=== PATIENT | female | born 1955 | race Caucasian/White ===

== ENCOUNTER → 2019-10-31 12:08 | Outpatient (CLI) | payer MEDICARE, SELFPAY ==
--- NOTE | 2019-10-31 12:13 | BI_ITS ---
MAMMOGRAPHY - BILATERAL SCREENING REASON FOR EXAM: Female, 64 years old. Routine annual screening examination. PERTINENT HISTORY: Mother with breast cancer. TECHNIQUE: Digital bilateral breast beka (3D mammographic acquisition) in the CC and MLO projections. 2-D mediolateral oblique (MLO) and craniocaudad (CC) views of both breasts were obtained. CAD: Full Field Digital Mammography with Computer Added Detection was performed. COMPARISON: Comparison is made with prior examination dated December 11, 2016 and July 25, 2015. FINDINGS: Breast Composition: There are scattered areas of fibroglandular density. There are no dominant masses or suspicious calcifications. No other significant abnormalities are identified. There has been no significant change since the prior study. BI/SCREEN MAMM (CAD) W/BEKA BILAT IMPRESSION: Stable bilateral screening mammogram. Yearly follow-up mammogram recommended. (A) ASSESSMENT CATEGORY: BIRADS Category 2: Benign. A letter regarding these results will be sent to the patient by the facility within 30 days. Approximately 10% of breast cancers are not detected by mammography. A normal mammogram should not delay biopsy of a clinically suspicious abnormality. [id number] Electronically Signed: Jun Witt, at 13:12 EST , Service support ,
== END ==
PROVIDERS: PCP Family Medicine; Referring Provider Family Medicine; Visit Provider Family Medicine
DX: Z12.31 Encounter for screening mammogram for malignant neoplasm of breast (principal)
CPT/HCPCS: 77063; 77067

== ENCOUNTER → 2020-12-05 09:08 | Outpatient (CLI) | payer MEDICARE, SELFPAY ==
[2020-12-05 10:45] LABS: ALB/GLOB Ratio 1.1 RATIO (0.9-2.4); AST(SGOT) 21 U/L (15-37); Alanine Aminotransfer ALT/SGPT 24 U/L (13-56); Alkaline Phosphatase 77 U/L (45-117); Anion Gap 5 (5-15); BUN 22 mg/dL (7-18); BUN/Creat Ratio 26.1 RATIO (10-20); Calcium,Total 8.9 mg/dL (8.5-10.1); Chloride 105 mmol/L (98-107); Cholesterol 204 mg/dL (200); Creatinine, Serum 0.84 mg/dL (0.55-1.02); EST Glomerular Filtration Rate 72 mL/min (>60); Est Glom Filt Rate - Afr Amer 87 mL/min (>60); Globulin 3.8 g/dL (2.2-4.2); Glucose 100 mg/dL (74-106); High Density Lipoprotein 54 mg/dL; Potassium 4.2 mmol/L (3.5-5.1); Protein, Total 7.8 g/dL (6.4-8.2); Sodium Level 137 mmol/L (136-145); Triglycerides 81 mg/dL; Very Low Density Lipoprotein 16 mg/dL (5-40)
== END ==
PROVIDERS: PCP Family Medicine; Referring Provider Family Medicine; Visit Provider Family Medicine
DX: Z13.220 Encounter for screening for lipoid disorders (principal); Z13.1 Encounter for screening for diabetes mellitus
CPT/HCPCS: 36415; 80053; 80061

== ENCOUNTER 2020-12-17 08:12 | Day surgery (SDC) | payer MEDICARE, SELFPAY ==
[2020-12-17 08:35] VITALS: BP 182/86; PULSE 61; RESP 16; TEMP 36.8; O2SAT 97; BMI 29.5
[2020-12-17] MEDS: Lactated Ringers 1,000 ML 100 ML IV (08:41)
--- NOTE | 2020-12-17 09:19 | HP.PCM_ITS ---
History of Present Illness Date of Admission: 12/17/20 The patient is a 65 year old F here for screening colonoscopy. The patient reports no history of colonoscopy in the past. The patient reports no family history of colon cancer or polyps. The patient has no blood in her stool or abdominal pain. Past Medical/Surgical History - Planned Operation Planned Operative Procedure/s: cscope open access Date of Operative Procedure: 12/17/20 Permit Signed: No S.O.S: No Is This Patient Having a Total Joint: No - Previous Hospitalizations/Surgeries HX Hospitalizations: Yes - pneumonia 11 yrs ago HX of Surgeries: eye surgery as child. tubal ligation 30 yrs ago Any Problems With Anesthesia: Yes - seizure with tubal ligation You/Your Family Experience Fever (Hyperthermia) With Anes: No Cholinesterase deficiency: No - Cardiovascular Hx Chest Pain within Last 2 months: No Hx of Irregular Heartbeat and/or Afib: No Hx Heart Attack: No Hx Congestive Heart Failure: No Hx Rheumatic Fever: No Hx Hypertension: No Hx Internal Defibrillator: No Hx Pacemaker: No Hx Cardiac Catheterization: No Hx Cardiac Surgery/Stents/Etc.: No Hx Stress Test: No HX Edema: No Hx Pain in Legs when Walking/Leg Cramps: No - Respiratory Chronic Cough: No HX of Shortness of Breath: Yes - slightly sob with 2 flights of stairs Hoarseness: No Hx Chronic Obstructive Pulmonary Disease (COPD): No Hx Asthma: No Hx Emphysema: No Hx Sleep Apnea: No Hx Oxygen Use at Home: No Hx Respiratory Tract Infection/Cold (presently): No Do You Snore Loudly (louder than talking or can be heard): Yes Do You Often Feel Tired/ Fatigued/ Sleepy Dring Daytime?: Yes Has Anyone Observed You Stop Breathing During Sleep?: No Result (for STOP score): Positive Hx Smoking: No Smoking Status: Never smoker - Gastrointestinal Hx Gastroesophageal Reflux: Yes - tums otc prn Controlled With Meds: No Hx Gastrointestinal Disorders: Yes - ibs Hx Gastrointestinal Bleed: No Hx Ulcer: No Hx Hiatal Hernia: No Difficulty Chewing/Swallowing: No Recent Onset of Swallowing Problems: No Special diet followed at home: No Hx Unplanned Weight Loss of 20#: No HX Unplanned Weight Gain of 20#: No - Neurological Hx Seizures: Yes - 30 yrs ago with anesthesia HX Syncope/Blackout Spells/Unconsciousness: No Hx CVA/Stroke: No Hx Transient Ischemic Attacks (TIA): No Hx Multiple Sclerosis: No Hx Parkinson's Disease: No Hx Head/Neck Injury: Yes - occ pinched nerve in neck Hx Headaches: No Hx Back Injury/Pain: No Recent Onset of Speech Difficulty: No Restless Legs: No Does patient have nerve stimulator: No Patient instructed to have device shut off: No Rep notified?: No - Blood Disorder Hx Leukemia: No Bleeding Tendencies: No Hx Deep Vein Thrombosis: No Hx High Cholesterol: No Blood Transmitted Disease: No Hx Hepatitis: No Hx Cirrhosis: No Hx Anemia: No Hx Blood Disorders: No - Reproduction : No Is Patient Lactating: No Hx Hysterectomy: No Hx Tubal Ligation: Yes Are You Post Menopause: Yes - Genitourinary Hx Renal Disease: No - Musculoskeletal Hx Arthritis: No Hx Rheumatoid Arthritis: No Hx Gout: No Recent Onset of an Orthopedic Problem: No - Endocrine Hx Diabetes: No Thyroid Disease: No Hx Steroid Therapy: No - Psycho/Social Hx Substance Use: No Hx Alcohol Use: Yes - social Hx Anxiety: Yes - no meds Hx Depression: No Mental Illness: No Hx Dementia: No - Miscellaneous Hx Cancer: No Recent Exposure to Contagious Disease: No Active MRSA: No Hx of C-Diff: No Any Loose Teeth: No Allergies No Known Allergies Allergy (Verified 12/12/20 11:14) - Discharge Is Pt Admitted From a Shelter, or a Fci: No After D/C, Where Do you Plan to Go: Return Home - From the PAT History Number of Risk Factors: 2 - Physical Exam Vitals/I&O's: Vital Signs Temp Pulse Resp BP Pulse Ox 98.3 F 61 16 182/86 H 97 12/17/20 08:35 12/17/20 08:35 12/17/20 08:35 12/17/20 08:35 12/17/20 08:35 Oxygen Delivery Method Room Air Weight: 156 lb 8.451 oz Body Mass Index (BMI) 29.5 General: Alert, Oriented x3 Lungs: Normal air movement Cardiovascular: Regular rate, Regular Rhythm Abdomen: Soft, Non Tender, Non-Distended Microbiology Past 72 Hours 12/16/20 10:20 Interface Orders SARS-CoV-2 Antigen (Rapid) - Final Current Medications Lactated Ringer's () 1,000 mls @ 100 mls/hr IV .Q10H NEO Last Admin: 12/17/20 08:41 Dose: 100 mls/hr Documented by: Assessment/Plan 65-year-old female here for screening colonoscopy I explained endoscopy in detail to the patient. I explained the risks including but not limited to stroke or heart attack with anesthesia, perforation of the GI tract, bleeding, infection. I explained that any of these could necessitate further emergency surgery. The patient understands and all questions were answered sufficiently. The patient wishes to proceed with procedure. Frank Barber MD Pager: [facility] [address] [place] [address], [address] [place] [address] Office: Surgery Risks - Colonoscopy Risks Include but are not Limited To: Risks include but are not limited to: Bleeding, perforation requiring further surgery, inability to complete colonoscopy requiring barium enema.
--- NOTE | 2020-12-17 09:46 | OP.COLON_ITS ---
Patient Name: Kera Traylor Procedure Date: 12/17/2020 9:23 AM Date of : 1955 Age: 65 Procedure: Colonoscopy Indications: Screening for colorectal malignant neoplasm Providers: Frank Barber MD Referring MD: Jr Martinez Md Medicines: Monitored Anesthesia Care Patient Profile: This is a 65 year old female. Refer to note in patient chart for documentation of history and physical. Last Colonoscopy: none. The patient's first colonoscopy is today. Complications: No immediate complications. Procedure: Pre-Anesthesia Assessment: - Prior to the procedure, a History and Physical was performed, and patient medications and allergies were reviewed. The patient's tolerance of previous anesthesia was also reviewed. The risks and benefits of the procedure and the sedation options and risks were discussed with the patient. All questions were answered, and informed consent was obtained. Prior Anticoagulants: The patient has taken no previous anticoagulant or antiplatelet agents. After reviewing the risks and benefits, the patient was deemed in satisfactory condition to undergo the procedure. After I obtained informed consent, the scope was passed under direct vision. Throughout the procedure, the patient's blood pressure, pulse, and oxygen saturations were monitored continuously. The colonoscope was introduced through the anus and advanced to the cecum, identified by appendiceal orifice and ileocecal valve. The colonoscopy was performed without difficulty. The patient tolerated the procedure well. The quality of the bowel preparation was good. Scope In: 9:31:12 AM Scope Withdrawal Time 0 hours 6 minutes 12 seconds Scope Out: 9:44:08 AM Total Procedure Duration Time 0 hours 12 minutes 56 seconds Findings: The entire examined colon appeared normal on direct and retroflexion views. Impression: - The entire examined colon is normal on direct and retroflexion views. - No specimens collected. Recommendation: - Discharge patient to home. - Resume previous diet. - Continue present medications. - Repeat colonoscopy in 10 years for screening purposes. Procedure Code(s): --- Professional --- 57548, Colonoscopy, flexible; diagnostic, including collection of specimen(s) by brushing or washing, when performed (separate procedure) Diagnosis Code(s): --- Professional --- Z12.11, Encounter for screening for malignant neoplasm of colon CPT copyright 2017 [employer]. All rights reserved. The codes documented in this report are preliminary and upon machine packaging technician review may be revised to meet current compliance requirements. Frank Barber MD 12/17/2020 9:46:13 AM This report has been signed electronically. Number of Addenda: 0 Note Initiated On: 12/17/2020 9:23 AM
--- NOTE | 2020-12-17 09:46 | OP.CCLET_ITS ---
12/17/2020 Jr Martinez Md Re : Colonoscopy procedure for Kera Traylor Dear Michelle This procedure was performed on Thursday, December 17, 2020. My impressions and recommendations are as follows: Impressions : - The entire examined colon is normal on direct and retroflexion views. - No specimens collected. Recommendations : - Discharge patient to home. - Resume previous diet. - Continue present medications. - Repeat colonoscopy in 10 years for screening purposes. My findings are described in the full procedure note, which is enclosed. If I can be of further assistance, please feel free to contact me at Doctor phone number(s): , Work: . Sincerely, Frank Barber MD 12/17/2020 9:46:13 AM This report has been signed electronically.
[2020-12-17 09:47] VITALS: BP 126/56; BP 182/86; PULSE 79; RESP 16; TEMP 36.3; O2SAT 99
[2020-12-17 09:50] VITALS: BP 113/63; BP 182/86; PULSE 74; RESP 16; O2SAT 99
[2020-12-17 09:55] VITALS: BP 122/74; BP 182/86; PULSE 64; RESP 16; O2SAT 99
[2020-12-17 10:00] VITALS: BP 154/78; BP 160/99; BP 182/86; PULSE 68; PULSE 70; RESP 16; TEMP 36.4; O2SAT 100; O2SAT 98
[2020-12-17 10:34] VITALS: BP 182/86
== END 2020-12-17 10:35 | disposition home or self-care (01) ==
LOC: EN 08:12 → AC 08:12
PROVIDERS: PCP Family Medicine; Referring Provider Family Medicine; Visit Provider Surgery
PROC: 0DJD8ZZ Inspection of Lower Intestinal Tract, Via Natural or Artificial Opening Endoscopic (ICD-10-PCS; CPT 45378; principal; 2020-12-17 09:25)
DX: Z12.11 Encounter for screening for malignant neoplasm of colon (principal); Z20.828 Contact with and (suspected) exposure to other viral communicable diseases; K21.9 Gastro-esophageal reflux disease without esophagitis
CPT/HCPCS: G0121; 87426; C9803; J7120; J2405

== ENCOUNTER → 2021-04-22 17:55 | Outpatient (CLI) | payer MEDICARE, SELFPAY | PROVIDERS: PCP Family Medicine; Visit Provider Family Medicine | DX: Z20.822 Contact with and (suspected) exposure to COVID-19 (principal) | CPT/HCPCS: 87635; U0005; U0003 ==

== ENCOUNTER → 2022-01-28 | Outpatient (CLI) | payer MEDICARE, SELFPAY ==
[2022-01-28 10:11] LABS: Absolute Lymphocyte Count 1.25 X10^3/uL (0.83-4.51); Absolute Neutrophil Count 3.8 X10^3/uL (2.0-7.7); Basophil# 0.07 X10^3/uL; Basophil% 1.2 % (0-1); Eosinophils% 3.4 % (0-5); Hemoglobin 11.6 g/dL (12.0-15.0); Lymphocyte # 1.25 X10^3/ul (0.83-4.51); Lymphocyte % 21.3 % (19-41); Mean Corp Hgb Conc 32.2 g/dL (32-36); Mean Corpuscular Hgb 28.3 pg (27.0-32.0); Mean Corpuscular Volume 87.8 fL (81-99); Mean Platelet Vol. 10.9 fl (6.2-12.0); Monocyte# 0.55 X10^3/uL; Monocyte% 9.4 % (0-10); NRBC Flagged by Analyzer 0 % (0-5); Neutrophil # 3.77 X10^3/uL (2.7-7.7); Neutrophil % 64.4 % (47-70); Platelet Count 347 K/mm3 (150-450); RBC Distribution Width CV 13.2 % (11.6-14.6); RBC Distribution Width SD 42.4 fl (35.1-43.9); White Blood Count 5.9 K/mm3 (4.4-11.0)
[2022-01-28 10:39] LABS: ALB/GLOB Ratio 0.9 RATIO (0.9-2.4); AST(SGOT) 14 U/L (15-37); Alanine Aminotransfer ALT/SGPT 21 U/L (13-56); Albumin, Serum 3.6 g/dL (3.2-5.0); Alkaline Phosphatase 65 U/L (45-117); Anion Gap 5 (5-15); BUN 20 mg/dL (7-18); BUN/Creat Ratio 23.6 RATIO (10-20); Calcium,Total 8.7 mg/dL (8.5-10.1); Chloride 105 mmol/L (98-107); Cholesterol 220 mg/dL (200); Creatinine, Serum 0.85 mg/dL (0.55-1.02); EST Glomerular Filtration Rate 71 mL/min (>60); Est Glom Filt Rate - Afr Amer 86 mL/min (>60); Globulin 3.8 g/dL (2.2-4.2); Glucose 102 mg/dL (74-106); High Density Lipoprotein 51 mg/dL; Protein, Total 7.4 g/dL (6.4-8.2); Sodium Level 137 mmol/L (136-145); T4 Free Direct 0.73 ng/dL (0.76-1.46); Triglycerides 132 mg/dL; Very Low Density Lipoprotein 26 mg/dL (5-40)
[2022-01-29 11:01] LABS: Hemoglobin A1c 5.5 % (3.8-5.6)
[2022-01-30 11:12] LABS: Anti-Thyroglobulin AB < 1.0 IU/mL (0.0-0.9); Thyroglobulin, Serum Qt. 30.5 ng/mL (1.5-38.5); Thyroid Peroxidase AB 252 IU/mL (0-34)
== END | disposition home or self-care (01) ==
LOC: MFPLAB 08:16
PROVIDERS: PCP Family Medicine; Referring Provider Family Medicine; Visit Provider Family Medicine
DX: Z00.00 Encounter for general adult medical examination without abnormal findings (principal); E04.1 Nontoxic single thyroid nodule
CPT/HCPCS: 36415; 80053; 80061; 84432; 84439; 84443; 85025; 86376; 86800

== ENCOUNTER → 2022-01-28 | Outpatient (CLI) | payer MEDICARE, SELFPAY ==
--- NOTE | 2022-01-28 12:57 | US_ITS ---
STUDY: THYROID ULTRASOUND REASON FOR EXAM: Female, 66 years old. THYROID NODULE TECHNIQUE: Ultrasound evaluation of the thyroid was performed with real-time and static euceda-scale imaging. COMPARISON: None. FINDINGS: RIGHT LOBE: The right lobe of the thyroid gland measures 4.3 cm x 1.8 cm x 2.1 cm. There is a heterogeneous echotexture. Multiple hypoechoic and cystic nodules are seen in the right lobe of the thyroid. The largest nodule measures 1.2 cm x 0.9 cm. LEFT LOBE: The left lobe of the thyroid gland measures 3.4 cm x 1.1 cm x 1.5 cm. There is a heterogeneous echotexture. Multiple solid nodules are seen throughout the left lobe. The largest nodule is in the lower pole and measures 0.9 cm x 1 centimeter. ISTHMUS: The isthmus measures 3.4 mm. The regional lymph nodes are normal. US/Thyroid IMPRESSION: Heterogeneous appearance of both lobes of the thyroid gland with multiple small nodules as described. Correlation with nuclear medicine uptake and thyroid scan recommended. Electronically Signed: Jun Witt MD at 14:54 EDT ,
== END | disposition home or self-care (01) ==
LOC: US 12:55
PROVIDERS: PCP Family Medicine; Visit Provider Family Medicine
DX: E04.1 Nontoxic single thyroid nodule (principal)
CPT/HCPCS: 36415; 76536; 80053; 80061; 83036; 84432; 84439; 84443; 85025; 86376; 86800

== ENCOUNTER → 2022-02-03 | Outpatient (CLI) | payer MEDICARE, SELFPAY ==
--- NOTE | 2022-02-03 10:27 | BI_ITS ---
MAMMOGRAPHY - BILATERAL SCREENING REASON FOR EXAM: Female, 66 years old. Routine annual screening examination. PERTINENT HISTORY: Mother with breast cancer. TECHNIQUE: Digital bilateral breast beka (3D mammographic acquisition) in the CC and MLO projections. 2-D mediolateral oblique (MLO) and craniocaudad (CC) views of both breasts were obtained. CAD: Full Field Digital Mammography with Computer Added Detection was performed. COMPARISON: Mammogram from 10/31/2019, 12/11/2016, 07/25/2015, 07/12/2014. FINDINGS: Breast Composition: There are scattered areas of fibroglandular density. There are no dominant masses or suspicious calcifications. No other significant abnormalities are identified. There has been no significant change since the prior study. BI/SCRN MAMM (CAD)W/BEKA BILAT IMPRESSION: Stable bilateral screening mammogram. Yearly follow-up mammogram recommended. (A) ASSESSMENT CATEGORY: BIRADS Category 1: Negative. A letter regarding these results will be sent to the patient by the facility within 30 days. Approximately 10% of breast cancers are not detected by mammography. A normal mammogram should not delay biopsy of a clinically suspicious abnormality. [id number] Electronically Signed: Ta Poe, at 12:06 EDT ,
--- NOTE | 2022-02-03 10:45 | BD_ITS ---
STUDY: DUAL ENERGY X-RAY ABSORPTIOMETRY / DXA REASON FOR EXAM: Female, 66 years old. Z780. The patient is postmenopausal. TECHNIQUE: Bone Mineral Density (BMD) measurements of lumbar spine and bilateral hips were obtained. COMPARISON: Comparison is made with prior study dated 07/25/2015. FINDINGS: Lumbar Spine (L1-L4): g/cm2 (0.963) / T-score (-0.8) / Z-score (1.2) Findings are suggestive of normal bone density with a low fracture risk. Left Femur Total: g/cm2 (0.867) / T-score (-0.6) / Z-score (0.7) Left Femoral Neck: g/cm2 (0.705) / T-score (-1.3) / Z-score (0.4) Right Femur Total: g/cm2 (0.914) / T-score (-0.2) / Z-score (1.1) Right Femoral Neck: g/cm2 (0.663) / T-score (-1.7) / Z-score (0.0) The T-Scores on the most recent prior examination were: Lumbar Spine (L1-L4): There has been worsening of bone density since the previous examination. Left Femur Total: which represents a worsening of 0.5%. Right Femur Total: which represents a worsening of 9.7%. BD/Dexa Bone Density Study IMPRESSION: The patient is considered osteopenic as outlined below according to World Steve Organization (WHO) criteria with a moderate fracture risk. There has been worsening of bone density since the previous examination. Reference Information: The T-score is the number of standard deviations above or below the standard which is normal for young adults at their peak bone mineral density. The World Health Organization (WHO) interprets the T-scores as follows: Above -1 Normal bone density Between -1 and -2.5 Osteopenia Equal to / or below -2.5 Osteoporosis As a practical clinical guideline, osteopenia may be graded as follows: Mild -1 through -1.5 Moderate -1.6 through -2.0 Severe -2.1 through -2.4 The Z-score is the number of standard deviations above or below age-matched controls. A Z-score of less than -1.5 would be considered abnormal. References: 1. NIH Osteoporosis and Related Bone Diseases www osteo.org 2. International Society for Clinical Densitometry www iscd.org 3. National Osteoporosis Foundation www nof.org Electronically Signed: Jun Witt MD at 8:57 EDT ,
== END | disposition home or self-care (01) ==
LOC: OPBD 10:25
PROVIDERS: PCP Family Medicine; Visit Provider Family Medicine
DX: Z12.31 Encounter for screening mammogram for malignant neoplasm of breast (principal); Z80.3 Family history of malignant neoplasm of breast; Z78.0 Asymptomatic menopausal state
CPT/HCPCS: 77063; 77067; 77080

== ENCOUNTER → 2022-02-11 | Outpatient (CLI) | payer MEDICARE, SELFPAY ==
--- NOTE | 2022-02-11 | FLU_PTH ---
PATIENT: KENDRA PINEDA [id number] AGE/SX: 66/F ROOM: RE02/11/[address]: Dr. Gregor Austin MD : 1955 BED: DIS: 02/11/2022 SPEC #: [id number] RECD: 02/11/22 11:55 STATUS: SUJEY REQ #: [id number] REINA: 02/11/22 00:[address]: Gregor Austin DEPT: CYTOLOGY RECD BY: Shira Lopez ENTERED: 02/11/22 14:02 SP TYPE: Fluid OTHR DR: Dr. Jr Reyes MD Tissues: A - Thyroid gland, NOS B - Thyroid gland, NOS Procedures: Special Stain Group II Surgery Specimen Level IV Cytospin Fluid Cytology Other HEADER OPERATION: Fine needle aspiration right thyroid PRE-OP DIAGNOSIS: Abnormal thyroid ultrasound TISSUE SUBMITTED: A ? FNA right thyroid fluid, B ? FNA right thyroid x12 slides DIAGNOSIS CYTOLOGY A. Fine needle aspiration, right thyroid nodule (cytospin and cell block): Focal atypia of undetermined clinical significance ([place] category III). B. Fine needle aspiration, right thyroid nodule (smears): Focal atypia of undetermined clinical significance ([place] category III). Chronic inflammation. AM:petey 02/12/2022 CYTOLOGY STUDY Slides are reviewed. CYTOLOGY GROSS A - Received is 15 ml of light brown fluid labeled with the patient's name and and designated per the requisition as right thyroid. Submitted for cytology preparation including cell block. B - Received are 12 smears labeled with the patient's name and designated per the requisition as right thyroid. Submitted for staining. / petey 02/11/2022 TC:? CPT: 98017 x2, 33366
== END | disposition home or self-care (01) ==
LOC: LABSPEC 13:04
PROVIDERS: PCP Family Medicine; Referring Provider Surgery; Visit Provider Surgery
DX: R93.89 Abnormal findings on diagnostic imaging of other specified body structures (principal)
CPT/HCPCS: 88108; 88161; 88305; 88313

== ENCOUNTER → 2022-02-12 | Outpatient (CLI) | payer MEDICARE, SELFPAY ==
[2022-02-12 10:05] LABS: Absolute Lymphocyte Count 1.03 X10^3/uL (0.83-4.51); Absolute Neutrophil Count 4.3 X10^3/uL (2.0-7.7); Basophil# 0.06 X10^3/uL; Eosinophil# 0.17 X10^3/uL; Eosinophils% 2.7 % (0-5); Hematocrit 36.9 % (37-47); Hemoglobin 11.9 g/dL (12.0-15.0); Lymphocyte # 1.03 X10^3/ul (0.83-4.51); Lymphocyte % 16.5 % (19-41); Mean Corp Hgb Conc 32.2 g/dL (32-36); Mean Corpuscular Hgb 28.3 pg (27.0-32.0); Mean Corpuscular Volume 87.6 fL (81-99); Mean Platelet Vol. 10.8 fl (6.2-12.0); Monocyte# 0.67 X10^3/uL; Monocyte% 10.7 % (0-10); NRBC Flagged by Analyzer 0 % (0-5); Neutrophil % 68.6 % (47-70); Platelet Count 322 K/mm3 (150-450); RBC Distribution Width CV 13.2 % (11.6-14.6); RBC Distribution Width SD 42.6 fl (35.1-43.9); Red Blood Count 4.21 M/mm3 (4.2-5.4); White Blood Count 6.3 K/mm3 (4.4-11.0)
[2022-02-12 11:03] LABS: Ferritin 24 ng/mL (8-252); Iron 46 ug/dL (50-170); Iron Binding Capacity,Total 430 ug/dL (250-450)
[2022-02-12 13:42] LABS: Vitamin B12 264 pg/mL (211-911); Vitamin D,25 Hydroxy 16.9 ng/mL
== END | disposition home or self-care (01) ==
LOC: MFPLAB 08:09
PROVIDERS: PCP Family Medicine; Visit Provider Family Medicine
DX: D64.9 Anemia, unspecified (principal); M85.80 Other specified disorders of bone density and structure, unspecified site
CPT/HCPCS: 36415; 82306; 82607; 82728; 82746; 83540; 83550; 85025

== ENCOUNTER → 2022-03-12 | Outpatient (CLI) | payer MEDICARE, SELFPAY ==
[2022-03-12 10:19] LABS: Absolute Lymphocyte Count 1.22 X10^3/uL (0.83-4.51); Absolute Neutrophil Count 3.9 X10^3/uL (2.0-7.7); Basophil# 0.05 X10^3/uL; Basophil% 0.8 % (0-1); Eosinophil# 0.18 X10^3/uL; Hematocrit 37.3 % (37-47); Hemoglobin 11.9 g/dL (12.0-15.0); Lymphocyte # 1.22 X10^3/ul (0.83-4.51); Lymphocyte % 20.4 % (19-41); Mean Corp Hgb Conc 31.9 g/dL (32-36); Mean Corpuscular Hgb 27.9 pg (27.0-32.0); Mean Corpuscular Volume 87.6 fL (81-99); Mean Platelet Vol. 11.2 fl (6.2-12.0); Monocyte# 0.61 X10^3/uL; Monocyte% 10.2 % (0-10); NRBC Flagged by Analyzer 0 % (0-5); Neutrophil # 3.91 X10^3/uL (2.7-7.7); Neutrophil % 65.3 % (47-70); Platelet Count 343 K/mm3 (150-450); RBC Distribution Width CV 13.2 % (11.6-14.6); RBC Distribution Width SD 41.9 fl (35.1-43.9); Red Blood Count 4.26 M/mm3 (4.2-5.4)
[2022-03-12 10:44] LABS: Ferritin 42 ng/mL (8-252); Iron 72 ug/dL (50-170); Iron Binding Capacity,Total 373 ug/dL (250-450)
== END | disposition home or self-care (01) ==
LOC: MFPLAB 08:28
PROVIDERS: PCP Family Medicine; Visit Provider Family Medicine
DX: D50.9 Iron deficiency anemia, unspecified (principal)
CPT/HCPCS: 36415; 82728; 83540; 83550; 85025

== ENCOUNTER → 2022-05-14 | Outpatient (CLI) | payer MEDICARE, SELFPAY ==
[2022-05-14 14:57] LABS: Absolute Lymphocyte Count 1.25 X10^3/uL (0.83-4.51); Absolute Neutrophil Count 5.7 X10^3/uL (2.0-7.7); Basophil# 0.06 X10^3/uL; Basophil% 0.8 % (0-1); Eosinophil# 0.25 X10^3/uL; Eosinophils% 3.2 % (0-5); Hematocrit 36.9 % (37-47); Hemoglobin 11.9 g/dL (12.0-15.0); Lymphocyte # 1.25 X10^3/ul (0.83-4.51); Lymphocyte % 15.8 % (19-41); Mean Corp Hgb Conc 32.2 g/dL (32-36); Mean Corpuscular Hgb 28.5 pg (27.0-32.0); Mean Corpuscular Volume 88.5 fL (81-99); Mean Platelet Vol. 11.6 fl (6.2-12.0); Monocyte% 7.6 % (0-10); NRBC Flagged by Analyzer 0 % (0-5); Neutrophil # 5.73 X10^3/uL (2.7-7.7); Neutrophil % 72.2 % (47-70); Platelet Count 337 K/mm3 (150-450); RBC Distribution Width CV 13.4 % (11.6-14.6); RBC Distribution Width SD 43.6 fl (35.1-43.9); Red Blood Count 4.17 M/mm3 (4.2-5.4); White Blood Count 7.9 K/mm3 (4.4-11.0)
[2022-05-14 15:14] LABS: Vitamin D,25 Hydroxy 69.1 ng/mL
[2022-05-14 15:18] LABS: ALB/GLOB Ratio 1.1 RATIO (0.9-2.4); AST(SGOT) 19 U/L (15-37); Alanine Aminotransfer ALT/SGPT 22 U/L (13-56); Albumin, Serum 3.9 g/dL (3.2-5.0); Alkaline Phosphatase 78 U/L (45-117); Anion Gap 5 (5-15); BUN 30 mg/dL (7-18); BUN/Creat Ratio 34.5 RATIO (10-20); Calcium,Total 9.1 mg/dL (8.5-10.1); Chloride 103 mmol/L (98-107); Creatinine, Serum 0.87 mg/dL (0.55-1.02); EST Glomerular Filtration Rate 69 mL/min (>60); Est Glom Filt Rate - Afr Amer 83 mL/min (>60); Ferritin 68 ng/mL (8-252); Globulin 3.5 g/dL (2.2-4.2); Glucose 91 mg/dL (74-106); Iron 73 ug/dL (50-170); Iron Binding Capacity,Total 359 ug/dL (250-450); Potassium 4.3 mmol/L (3.5-5.1); Protein, Total 7.4 g/dL (6.4-8.2); Sodium Level 137 mmol/L (136-145)
== END | disposition home or self-care (01) ==
LOC: MFPLAB 11:32
PROVIDERS: PCP Family Medicine; Visit Provider Family Medicine
DX: D50.9 Iron deficiency anemia, unspecified (principal); M85.80 Other specified disorders of bone density and structure, unspecified site; E03.8 Other specified hypothyroidism
CPT/HCPCS: 36415; 80053; 82306; 82728; 83540; 83550; 84439; 84443; 85025

== ENCOUNTER → 2022-06-11 | Outpatient (CLI) | payer MEDICARE, SELFPAY ==
--- NOTE | 2022-06-11 12:16 | EKG12_ITS ---
Test Reason : PRE-OP Blood Pressure : / mmHG Vent. Rate : 056 BPM Atrial Rate : 056 BPM P-R Int : 114 ms QRS Dur : 078 ms QT Int : 474 ms P-R-T Axes : 002 025 -22 degrees QTc Int : 457 ms Sinus bradycardia T wave abnormality, consider anterior ischemia Abnormal ECG Confirmed by TOSHA GOODWIN, ALBINA ([id number]), editor school photograph EM FOUNTAIN ([id number]) on 06/12/2022 10:08:16 A M Referred By: Gregor Austin Confirmed By:HOANG GIVENS MD
== END | disposition home or self-care (01) ==
LOC: PAT 07-09 15:44
PROVIDERS: PCP Family Medicine; Referring Provider Surgery; Visit Provider Surgery
DX: R00.1 Bradycardia, unspecified (principal)
CPT/HCPCS: 93005

== ENCOUNTER → 2022-07-02 | Outpatient (CLI) | payer MEDICARE, SELFPAY ==
--- NOTE | 2022-07-02 06:57 | ECHOD_ITS ---
Reason For Study: DYSPNEA Procedure This was a 2D Doppler, Color Flow transthoracic echocardiogram. Exam performed in department. Left Ventricle Normal LV size. Mild concentric left ventricular hypertrophy. The left ventricular ejection fraction is 70 %. Normal diastololic function. Right Ventricle Normal right ventricle. Atria The left and right atria are normal. Mitral Valve The mitral valve is structurally normal. No prolapse or stenosis seen. Tricuspid Valve Trivial tricuspid valve insufficiency. Unable to estimate RV systolic pressure due to insufficient tricuspid regurgitant envelope. Aortic Valve Trisinus/trileaflet aortic valve. Mild (1+) aortic valve insufficiency. Pulmonic Valve The pulmonic valve is not well visualized. Great Vessels Normal aortic root. Pericardium/Pleural Epicardial fat. Trivial pericardial effusion. MMode/2D Measurements & Calculations LVIDd: 4.0 cm IVSd: 1.5 cm Ao root diam: 3.0 cm LVIDs: 3.2 cm LVPWd: 1.4 cm FS: 20.6 % LAV(MOD-bp): 37.5 ml LVAd ap4: 16.3 cm2 SV(MOD-sp4): 25.1 ml LAV(MOD-bp) Indexed: 21.8 ml/m2 LVLd ap4: 6.3 cm LAV(MOD-sp2): 31.4 ml EDV(MOD-sp4): 36.4 ml LAV(MOD-sp4): 35.3 ml EDV(sp4-el): 35.8 ml LVAs ap4: 8.2 cm2 LVLs ap4: 5.4 cm ESV(MOD-sp4): 11.4 ml ESV(sp4-el): 10.4 ml EF(MOD-sp4): 68.8 % EF(sp4-el): 70.9 % SV(sp4-el): 25.4 ml LA A4 area: 14.1 cm2 LA dimension(2D): 4.3 cm RA A4 area: 10.6 cm2 Time Measurements MV dec time: 0.39 sec Doppler Measurements & Calculations MV E max rashi: 46.5 cm/sec Lat Peak E' Rashi: 12.4 cm/sec Med Peak E' Rashi: 10.2 cm/sec MV A max rashi: 84.7 cm/sec E/E' lat: 3.7 E/E' med: 4.5 MV E/A: 0.55 MV V2 max: 90.0 cm/sec Ao V2 max: 185.0 cm/sec MV max P.2 mmHg MV dec slope: 124.0 cm/sec2 Ao max P.7 mmHg MV V2 mean: 48.2 cm/sec Ao V2 mean: 121.4 cm/sec MV mean P.1 mmHg Ao mean P.7 mmHg MV V2 VTI: 24.1 cm Ao V2 VTI: 33.6 cm LV V1 max: 133.5 cm/sec PA V2 max: 139.4 cm/sec LV V1 max P.2 mmHg PA V2 mean: 81.1 cm/sec LV V1 mean P.0 mmHg LV V1 mean: 78.8 cm/sec LV V1 VTI: 19.3 cm ECHO/Echo Complete Interpretation Summary Mild concentric left ventricular hypertrophy. The left ventricular ejection fraction is 70 %. Mild (1+) aortic valve insufficiency. Epicardial fat. Trivial pericardial effusion. Ordering Physician: Parvin Rooney Referring Physician: Parvin Rooney Performed By: Katherine Duong RCS
[2022-07-02 10:32] LABS: Anion Gap 5 (5-15); BUN 21 mg/dL (7-18); BUN/Creat Ratio 25.2 RATIO (10-20); Calcium,Total 9.6 mg/dL (8.5-10.1); Chloride 105 mmol/L (98-107); Cholesterol 229 mg/dL (200); Creatinine, Serum 0.83 mg/dL (0.55-1.02); EST Glomerular Filtration Rate 72 mL/min (>60); Est Glom Filt Rate - Afr Amer 88 mL/min (>60); Glucose 109 mg/dL (74-106); High Density Lipoprotein 55 mg/dL; Potassium 4.2 mmol/L (3.5-5.1); Sodium Level 138 mmol/L (136-145); Triglycerides 180 mg/dL; Very Low Density Lipoprotein 36 mg/dL (5-40)
--- NOTE | 2022-07-02 11:27 | STRESSREP ---
Stress Test Report Date: 07/02/2022 Procedure: Exercise tolerance test/imaging study Indications: Abnormal EKG Consent: Per the patient Procedure: The patient exercised on a James protocol for 4 minutes and 30 seconds minutes achieving a peak heart rate of 144 bpm (94% predicted maximal heart rate) with a peak blood pressure 204/94 mmHg and a peak MET capacity of 7 METs. The baseline ECG demonstrated normal sinus rhythm with ST and T wave changes in anterior leads. The peak exercise ECG demonstrated pseudonormalization of resting ST-T wave changes. [There were no cardiac dysrhythmias pretest, during exercise, or recovery]. The functional capacity was considered suboptimal. There was complaints of shortness of breath and fatigue during exercise. The examination was discontinued secondary to target heart rate being achieved. The patient was injected with 11.6 mCi of technetium 99m Cardiolite and subsequently rest SPECT Cardiolite nuclear imaging was obtained in the horizontal long, vertical long, and short axis views. Post-exercise, the patient was injected with 33 point mCi of technetium 99m Cardiolite and subsequently stress SPECT Cardiolite nuclear imaging was obtained in the horizontal long, vertical long, and short axis views. A gated Cardiolite study at peak stress was obtained. Rest and stress SPECT Cardiolite nuclear imaging status post realignment, normalization, and attenuation correction, demonstrates relatively decreased uptake in the inferior apex post exercise that may suggest reversible ischemia. [There is end systolic thickening and brightening]. The gated Cardiolite study demonstrates [myocardial thickening and inward wall motion]. The reported LVEF is 72%. Impression: 1. Technically adequate (percent predicted maximal heart rate greater than 85%) exercise tolerance test 2. Peak exercise ECG pseudonormalization of resting changes that may denote ischemia. 3. [There were no cardiac dysrhythmias pretest, during exercise, or recovery] 4. Rest and stress SPECT Cardiolite nuclear imaging demonstrate small inferior apical defect concerning for ischemia. 5. The gated Cardiolite study reports an LVEF of 72%. This note was generated with [employer] software. It may contain incorrect words, spelling, and punctuation that were not noted in checking the note before signing.
== END | disposition home or self-care (01) ==
PROVIDERS: PCP Family Medicine; Referring Provider Internal Medicine Cardiovascular Disease; Visit Provider Internal Medicine Cardiovascular Disease
DX: Z01.810 Encounter for preprocedural cardiovascular examination (principal); I10 Essential (primary) hypertension; E06.3 Autoimmune thyroiditis; R06.09 Other forms of dyspnea
CPT/HCPCS: 36415; 78452; 80048; 80061; 93017; 93306; A9500; A4216

== ENCOUNTER → 2022-08-03 | Outpatient (CLI) | payer MEDICARE, SELFPAY ==
--- NOTE | 2022-08-04 14:00 | RAD_ITS ---
EXAM: XR CHEST, 2 VIEWS CLINICAL INDICATION: SOB -- for heart cath TECHNIQUE: Frontal and lateral views of the chest. This report was created using [employer] report generation technology. COMPARISON: None. FINDINGS: LUNGS AND PLEURAL SPACES: Unremarkable. No consolidation or edema. No pneumothorax. No effusion. HEART: Unremarkable. Cardiac silhouette not enlarged. MEDIASTINUM: Central airways and mediastinal contour are unremarkable. BONES/JOINTS: Unremarkable. SOFT TISSUES: Unremarkable. RAD/Chest PA and Lateral IMPRESSION: No radiographic evidence of acute cardiopulmonary disease. Electronically Signed: El Adorno MD at 18:52 EST ,
[2022-08-04 14:38] LABS: Hematocrit 38.1 % (37-47); Hemoglobin 12.5 g/dL (12.0-15.0); Mean Corp Hgb Conc 32.8 g/dL (32-36); Mean Corpuscular Hgb 29.2 pg (27.0-32.0); Mean Platelet Vol. 10.2 fl (6.2-12.0); Platelet Count 322 K/mm3 (150-450); RBC Distribution Width CV 12.8 % (11.6-14.6); RBC Distribution Width SD 41.6 fl (35.1-43.9); Red Blood Count 4.28 M/mm3 (4.2-5.4); White Blood Count 7.1 K/mm3 (4.4-11.0)
[2022-08-04 14:47] LABS: Prothrombin Time (Protime)PT. 12.9 SECONDS (11.7-14.9)
[2022-08-04 14:48] LABS: Partial Thromboplast Time 29.3 Seconds (24.1-36.2)
[2022-08-04 14:52] LABS: Anion Gap 7 (5-15); BUN 30 mg/dL (7-18); BUN/Creat Ratio 32.8 RATIO (10-20); Calcium,Total 8.9 mg/dL (8.5-10.1); Chloride 101 mmol/L (98-107); Creatinine, Serum 0.92 mg/dL (0.55-1.02); EST Glomerular Filtration Rate 65 mL/min (>60); Est Glom Filt Rate - Afr Amer 79 mL/min (>60); Glucose 103 mg/dL (74-106); Potassium 3.8 mmol/L (3.5-5.1); Sodium Level 136 mmol/L (136-145)
== END | disposition home or self-care (01) ==
PROVIDERS: PCP Family Medicine; Referring Provider Internal Medicine Cardiovascular Disease; Visit Provider Internal Medicine Cardiovascular Disease
DX: R06.09 Other forms of dyspnea (principal); R06.02 Shortness of breath; R94.39 Abnormal result of other cardiovascular function study; I10 Essential (primary) hypertension
CPT/HCPCS: 36415; 71046; 80048; 85027; 85610; 85730

== ENCOUNTER → 2022-09-16 | Outpatient (CLI) | payer MEDICARE, SELFPAY ==
[2022-09-16 12:45] LABS: Absolute Lymphocyte Count 1.17 X10^3/uL (0.83-4.51); Absolute Neutrophil Count 4.7 X10^3/uL (2.0-7.7); Basophil# 0.06 X10^3/uL; Basophil% 0.9 % (0-1); Eosinophils% 4.4 % (0-5); Hematocrit 32.9 % (37-47); Hemoglobin 10.7 g/dL (12.0-15.0); Lymphocyte # 1.17 X10^3/ul (0.83-4.51); Lymphocyte % 17.3 % (19-41); Mean Corp Hgb Conc 32.5 g/dL (32-36); Mean Corpuscular Hgb 29.6 pg (27.0-32.0); Mean Corpuscular Volume 91.1 fL (81-99); Monocyte# 0.54 X10^3/uL; NRBC Flagged by Analyzer 0 % (0-5); Neutrophil # 4.67 X10^3/uL (2.7-7.7); Neutrophil % 68.8 % (47-70); Platelet Count 385 K/mm3 (150-450); RBC Distribution Width CV 12.9 % (11.6-14.6); RBC Distribution Width SD 42.5 fl (35.1-43.9); Red Blood Count 3.61 M/mm3 (4.2-5.4); White Blood Count 6.8 K/mm3 (4.4-11.0)
[2022-09-16 13:39] LABS: Vitamin D,25 Hydroxy 77.6 ng/mL
[2022-09-16 13:47] LABS: ALB/GLOB Ratio 1.2 RATIO (0.9-2.4); AST(SGOT) 33 U/L (15-37); Alanine Aminotransfer ALT/SGPT 48 U/L (13-56); Albumin, Serum 3.8 g/dL (3.2-5.0); Alkaline Phosphatase 77 U/L (45-117); Anion Gap 5 (5-15); BUN 36 mg/dL (7-18); BUN/Creat Ratio 37.4 RATIO (10-20); Chloride 105 mmol/L (98-107); Cholesterol 170 mg/dL (200); Creatinine, Serum 0.96 mg/dL (0.55-1.02); EST Glomerular Filtration Rate 61 mL/min (>60); Est Glom Filt Rate - Afr Amer 74 mL/min (>60); Ferritin 147 ng/mL (8-252); Globulin 3.2 g/dL (2.2-4.2); Glucose 110 mg/dL (74-106); High Density Lipoprotein 49 mg/dL; Iron 74 ug/dL (50-170); Iron Binding Capacity,Total 324 ug/dL (250-450); Potassium 4.9 mmol/L (3.5-5.1); Sodium Level 136 mmol/L (136-145); T4 Free Direct 1.09 ng/dL (0.76-1.46); Thyroid Stim Hormone (TSH) 5.18 uIU/mL (0.358-3.74); Triglycerides 202 mg/dL; Very Low Density Lipoprotein 40 mg/dL (5-40)
== END | disposition home or self-care (01) ==
LOC: MFPLAB 10:46
PROVIDERS: PCP Family Medicine; Visit Provider Family Medicine
DX: D50.9 Iron deficiency anemia, unspecified (principal); E55.9 Vitamin D deficiency, unspecified; E03.8 Other specified hypothyroidism
CPT/HCPCS: 36415; 80053; 80061; 82306; 82728; 83540; 83550; 84439; 84443; 85025

== ENCOUNTER 2022-10-07 11:15 | Observation (INO) | payer MEDICARE, SELFPAY ==
[2022-10-01 10:39] LABS: International Normalized Ratio 1.1; Partial Thromboplast Time 30.5 Seconds (24.1-36.2); Prothrombin Time (Protime)PT. 13.5 SECONDS (11.7-14.9)
[2022-10-01 10:54] LABS: Anion Gap 6 (5-15); BUN 27 mg/dL (7-18); BUN/Creat Ratio 24.3 RATIO (10-20); Calcium,Total 9.4 mg/dL (8.5-10.1); Chloride 104 mmol/L (98-107); Creatinine, Serum 1.11 mg/dL (0.55-1.02); EST Glomerular Filtration Rate 52 mL/min (>60); Est Glom Filt Rate - Afr Amer 63 mL/min (>60); Glucose 110 mg/dL (74-106); Potassium 4.1 mmol/L (3.5-5.1); Sodium Level 137 mmol/L (136-145)
[2022-10-06 10:06] VITALS: BMI 11.7
--- NOTE | 2022-10-07 08:30 | PCM.HP.BLA ---
History and Physical Date of Admission: 10/07/22 History of Present Illness Details: The patient is here for a [facility]. Her stress test on 07/02/2022 showed EKG pseudonormalization of resting changes that may denote ischemia and nuclear images demonstrate small inferior apical defect concerning for ischemia. Her echocardiogram on 07/02/2022 showed ejection fraction of 70%. On account of EKG changes and abnormal stress test, it was recommended to proceed with heart catheterization. Denies any chest pains or shortness of breath either at rest or with exertion.? No palpitations. Lately the patient has been having problems with her sciatica. Intake Vital Signs: See EMR Visit Reasons:?[facility] Clinical Staff Educator Required: No Is patient in pain?: No Allergies doxycycline Adverse Reaction (Intermediate, Verified 08/04/22 13:13) Nausea Medications See EMR Ejection fraction %: 65 to 70 PFSH Medical History? Abnormal stress test Alcohol use Anxiety Cervicalgia Esotropia of left eye GERD (gastroesophageal reflux disease) Yolanda's disease ICP (infantile cerebral palsy) Leg cramps Low iron Marijuana use Non-smoker Seizures Thyroid disease Wears glasses Surgical History? Hx of eye surgery Hx of tubal ligation Family History? Mother Breast cancer Father Heart disease Sister Cancer lung Daughter Yolanda's disease Social History? Smoking Status:? Never smoker second hand exposure:? Yes alcohol intake:? current alcohol intake frequency: a few times a month substance use type:? marijuana and other details: edibles caffeine:? No ROS Const Const: Negative for fatigue, weakness, headache(s), frequent falls, difficulty sleeping or excessive sweating Eyes Eyes: Negative for loss of peripheral vision, transient loss of vision, blurry vision, double vision or tunnel vision ENT ENT: Negative for headache(s), dizziness, Nosebleed/epistaxis or balance problems Cardio Chest Pain: No Palpitations: No Edema: None Muscle aches with walking: None Resp Respiratory: Negative for SOB with activity, SOB at rest, SOB orthopnea\SOB lying down, Cough or paroxysmal nocturnal dyspnea GI GI: Positive for heartburn; Negative nausea, vomiting or black,tarry stools : Negative for hematuria Musc Musc: Positive for joint pain (sciatic nerve pain right leg); Negative for muscle aches/ myalgia, muscle weakness or balance problems Skin Skin: Negative non-healing lesions, rash or unusual bruising Neuro Neuro: Negative for dizziness, lightheadedness, near syncope, syncope, frequent falls, headache(s), weakness, blurry vision, double vision or lack of coordination Bryant Hematologic/Lymphatic: Negative for easy bleeding or easy bruising Endo Endo: Negative for fatigue, excessive sweating or increased thirst/drinking Psych Psych: Negative for anxiety or depression Allergy Allergy/Immunology: Negative for hives and Negative for rash Cardiology Exam Const Appearance: comfortable and no acute distress Nutritional Appearance: well nourished Neck Neck: no JVD Carotids: Negative bruit Chest Auscultation: Bilateral: Clear to Auscultation Cardio Rate: regular rate Rhythm: regular rhythm Heart sounds: S1 normal and S2 normal 2/6 systolic murmur noted at base. Neuro General: patient alert, patient awake and patient oriented x3 Extremities Lower Extremity Edema: None: Bilateral Supplemental Info Supplemental Information Labs: ?? ? LDL Cholesterol 138 mg/dL (0-130)? H ?? ? HDL Cholesterol 55 mg/dL (40-) ?? ? Triglycerides 180 mg/dL (-199) ?? ? VLDL Cholesterol 36 mg/dL (5-40) Diagnostics: ?? ? Electrocardiogram ? Echocardiogram ? Stress Test NM ? Stress Test ? Pulmonary: ?? ? No Data to Display Assessment and Plan Assessment and Plan (1) HTN (hypertension): ?Status:?Chronic ?Plan: We previously increased valsartan hydrochlorothiazide to 320/25 mg once daily.?We will continue medications and adjust as necessary. (2) Dyspnea on exertion: ?Status:?Acute ?Plan: Symptomatically improved.? Positive stress test.? In view of her EKG changes and positive stress test, I recommended coronary angiography with possible revascularization.? Risks benefits and alternatives explained.? She understands these and wishes to proceed. (3) Abnormal ECG: ?Status:?Acute ?Plan: See #2 above.
--- NOTE | 2022-10-07 11:15 | EKG12_ITS ---
Test Reason : POST PCI Blood Pressure : / mmHG Vent. Rate : 070 BPM Atrial Rate : 070 BPM P-R Int : 144 ms QRS Dur : 080 ms QT Int : 414 ms P-R-T Axes : 047 036 039 degrees QTc Int : 447 ms Normal sinus rhythm T wave abnormality, consider anterior ischemia Abnormal ECG Confirmed by STORMY GOODWIN, FREDI ([id number]), mapping editor EM FOUNTAIN ([id number]) on 10/12/2022 9:29:20 AM Referred By: Parvin Rooney Confirmed By:FREDI BURROWS MD
[2022-10-07 13:59] VITALS: BMI 30.4
--- NOTE | 2022-10-07 14:04 | CRPHASE1_ITS ---
Patient Communication Former Patient:: Phase I Guide to Cardiac Rehab Given to Patient:: Yes Cardiac Rehab Facility Choice List Given to Patient:: Yes Assembler [facility]:: Parvin Rooney Cardiac Rehabilitation Info Cardiac Rehabilitation Program Information: Cardiac Rehab The cardiac rehab team at [facility] consists of highly skilled exercise physiologists, nurses, respiratory therapists and physicians working together with you. Our purpose is to help you have a full recovery and achieve the goals you set for yourself. Over the years many of our patients have returned to activities they assumed they would never do again! We can help restore your confidence and motivation to make lifestyle changes that can have a significant impact on your health and quality of life! We can help answer questions and concerns you may have about exercise, lifestyle, medications, diet, stress and anxiety which are common following a hospitalization. WE monitor ECG and vital signs during exercise and discuss your progress with you and report to your physician(s). Cardiac Rehab is proven to help reduce readmissions, improve functional capacity and lower recurrence of problems with your heart. Our Cardiac Rehab program is Certified by the [employer] [employer] Pulmonary [employer] (AACVPR) and Accredited by the [employer] through our [facility]. You can contact us at . We invite you to call us with your questions or to get started in our program. If you have other questions or concerns be sure to ask y our physician/provider during your follow-up visit. WE look forward to seeing you!
--- NOTE | 2022-10-07 14:06 | CRPH1.INSTRU ---
General Education CAD and cardiac anatomy and function:: Patient communicates acknowledgment Explanation of diagnoses and procedures:: Patient communicates acknowledgment Sign/Symptoms of DC:: Patient communicates acknowledgment Antiplatelet therapy: Patient communicates acknowledgment Proper use of NTG-SL: Patient communicates acknowledgment Emergency procedures and activation of EMS: Patient communicates acknowledgment Compliance of all prescribed medications: Patient communicates acknowledgment Smoking Patient Nicotine/Smoking Risk Factors Are:: Never smoked Nicotine/Smoking Response Code:: Patient communicates acknowledgment Dyslipidemia Recommendations Include:: Lipid profile not available Dyslipidemia Response Code:: Patient communicates acknowledgment Overweight/Obesity Patient Overweight/Obesity Risk Factors Are:: Obesity - > or = 30 Recommendations Include:: Weight loss of 5-10%, Reduced calorie diet, Exercise 5-7 times/week Overweight/Obesity:: Patient communicates acknowledgment Hypertension Recommendations Include:: Maintain BP <130/85, Decrease/maintain normal body weight, Moderation of ETOH Hypertension:: Patient communicates acknowledgment Heart Disease Patient Heart Disease Risk Factors Are:: Family history of heart disease < 65 years old Recommendations Include:: Educated family members of their risk Heart Disease Response Code:: Patient communicates acknowledgment Diabetes Patient Diabetes Risk Factors Are:: No documented hx of diabetes Diabetes:: Patient communicates acknowledgment Metabolic Syndrome Patient Metabolic Syndrome Risk Factors Are [3 of 5]:: Hypertension Recommendations Include:: Does not meet criteria Metabolic Syndrome Response Code:: Patient communicates acknowledgment Sedentary Recommendations Include:: Monitored Outpatient Cardiac Rehab Sedentary Response Code:: Patient communicates acknowledgment Stress Recommendations Include:: Identification of stressors, and assessment of coping skills, Stress management techniques Stress Response Code:: Patient communicates acknowledgment
[2022-10-07 14:37] VITALS: BMI 29.9
[2022-10-07 14:40] VITALS: BP 159/87; PULSE 69; RESP 20; TEMP 36.4; O2SAT 98
[2022-10-07] MEDS: 0.9% Normal Saline 1,000 ML 150 ML IV (15:20)
[2022-10-07] MEDS: 0.9% Saline Lock 10 ML Syringe IV (15:20)
--- NOTE | 2022-10-07 15:35 | NURSING ---
Pt complains of R forearm pain and states that it feels tighter. R radial dressing has a small outlined blood spot that does appear to spread slightly out of the marked area. This nurse notifies charge nurse Dilip FONSECA, who notified tin can laborer. medical laboratory technologist nurses come to bedside and reapply 7ml of air into TR band over dressing and BP cuff to forearm with it set to 80. Dr Rooney notified of update by Dilip FONSECA. Instructed to slowly release air out of both TR band and BP cuff. Will continue to monitor
[2022-10-07 15:48] LABS: ACT Activated Clotting Time 245 sec (74-137)
[2022-10-07 15:48] LABS: ACT Activated Clotting Time 197 sec (74-137)
[2022-10-07] MEDS: Acetaminophen 325 MG Tablet 650 MG PO ×2 (16:57→23:38)
[2022-10-07] MEDS: Clopidogrel Bisulfate 300 MG Tablet PO (17:04)
[2022-10-07 17:06] VITALS: BP 179/95; PULSE 80; RESP 20; TEMP 36.2; O2SAT 98
[2022-10-07 21:15] VITALS: BP 159/94; PULSE 68; RESP 18; TEMP 37.1; O2SAT 96
[2022-10-07] MEDS: Pravastatin 40 MG Tablet PO (21:17)
[2022-10-07] MEDS: Carvedilol 3.125 MG TABLET PO (21:17)
[2022-10-08 03:25] VITALS: BP 149/81; PULSE 64; RESP 16; TEMP 37.1; O2SAT 97
[2022-10-08 04:46] LABS: Hematocrit 27.5 % (37-47); Hemoglobin 8.8 g/dL (12.0-15.0); Mean Corpuscular Hgb 28.9 pg (27.0-32.0); Mean Corpuscular Volume 90.5 fL (81-99); Mean Platelet Vol. 10.7 fl (6.2-12.0); Platelet Count 256 K/mm3 (150-450); RBC Distribution Width CV 13.1 % (11.6-14.6); RBC Distribution Width SD 43.7 fl (35.1-43.9); Red Blood Count 3.04 M/mm3 (4.2-5.4); White Blood Count 9.5 K/mm3 (4.4-11.0)
[2022-10-08 05:33] LABS: ALB/GLOB Ratio 0.9 RATIO (0.9-2.4); AST(SGOT) 10 U/L (15-37); Alanine Aminotransfer ALT/SGPT 17 U/L (13-56); Albumin, Serum 3.2 g/dL (3.2-5.0); Alkaline Phosphatase 59 U/L (45-117); Anion Gap 7 (5-15); BUN 22 mg/dL (7-18); BUN/Creat Ratio 22.7 RATIO (10-20); Calcium,Total 8.3 mg/dL (8.5-10.1); Chloride 106 mmol/L (98-107); Creatinine, Serum 0.97 mg/dL (0.55-1.02); EST Glomerular Filtration Rate 61 mL/min (>60); Est Glom Filt Rate - Afr Amer 74 mL/min (>60); Estimated Creatinine Clearance 41.89 ml/min; Globulin 3.4 g/dL (2.2-4.2); Glucose 106 mg/dL (74-106); Potassium 3.7 mmol/L (3.5-5.1); Protein, Total 6.6 g/dL (6.4-8.2); Sodium Level 137 mmol/L (136-145)
[2022-10-08] MEDS: Levothyroxine 75 MCG Tablet PO (06:01)
[2022-10-08] MEDS: Acetaminophen 325 MG Tablet 650 MG PO ×2 (06:01→12:04)
[2022-10-08] MEDS: Calcium (Elemental) 500 MG Tablet PO (08:05)
[2022-10-08] MEDS: Aspirin E.C. 81 MG Tablet PO (08:05)
[2022-10-08 09:25] VITALS: BP 154/83; PULSE 70; RESP 15; TEMP 36.8; O2SAT 94
[2022-10-08] MEDS: Carvedilol 3.125 MG TABLET PO (09:31)
[2022-10-08] MEDS: Losartan Potassium 100 MG Tablet PO (09:31)
[2022-10-08] MEDS: Clopidogrel Bisulfate 75 MG Tablet PO (09:32)
[2022-10-08] MEDS: hydroCHLOROthiazide 25 MG Tablet PO (09:32)
[2022-10-08] MEDS: Isosorbide Mononitrate 30 MG Tablet PO (09:32)
[2022-10-08 10:26] VITALS: O2SAT 94
--- NOTE | 2022-10-08 11:32 | PCM.DC ---
Discharge Instructions Diet Discharge Diet: Low fat / Low cholesterol Activity Discharge Activity: May Shower Lifting Restrictions: Do not lift anything greater than 10 pounds for 3 days. Dressing / Incision Call your doctor if your incision/area has: Continuous Slow Oozing, Sudden Increased Bleeding, Increased Pain/ Swelling, Increased Redness, Foul Smelling Discharge and Swelling at the incision site Call your doctor if you observe: Fever of 101 or Higher, Coldness, Increased Pain, Numbness or Tingling, Shortness of breath and Chest pain Cleanse incision/area with: Soap & Water Follow Up Care Please Follow Up With: Parvin Rooney MD When: 11/04/2022 at 1 PM Test Results: Test results from this visit will be discussed in further detail at your follow-up appointment, if applicable. Discharge Plan Admission Admit Date/Time: 10/07/22 11:15 Attending Provider: Parvin Rooney Primary Care Provider: Jr Reyes Instructions Additional Instructions / Restrictions: Please continue aspirin and Plavix therapy together for 1 year. If any other provider asked you to stop your Plavix, please contact the [facility] at [phone] prior to stopping. Cardiac rehab will contact you to begin cardiac rehab. If he have any questions or concerns, please call the [facility] Office at [phone]. Discharge Orders/Prescriptions Prescriptions: No Action calcium carbonate [Calcium 600] 600 mg calcium (1,500 mg) tablet 600 mg PO DAILY fluticasone propionate [Flonase Allergy Relief] 50 mcg/actuation spray,suspension 2 spray intranasal DAILY PRN (Reason: allergy symptoms) Rx Instructions: administer into each nostril Claritin Liqui-Gel 10 mg capsule 10 mg PO DAILY PRN (Reason: allergic symptoms) omeprazole 20 mg tablet,delayed release (DR/EC) 20 mg PO DAILY PRN (Reason: Acid Reflux) aspirin [Adult Aspirin Regimen] 81 mg tablet,delayed release (DR/EC) 81 mg PO DAILY Qty: 100 5RF isosorbide mononitrate 30 mg tablet extended release 24 hr 30 mg PO DAILY Qty: 30 11RF valsartan-hydrochlorothiazide 320-25 mg tablet 1 tab PO DAILY Qty: 30 6RF levothyroxine 75 mcg tablet 75 mcg PO DAILY ergocalciferol (vitamin D2) 1,250 mcg (50,000 unit) capsule 1,250 mcg PO QWEEK Label Comments: take 1 (ONE) Capsule by mouth weekly pravastatin 40 mg tablet 40 mg PO QHS Qty: 30 11RF Referrals / Follow Up: Jr Reyes MD [Primary Care Provider] - Disposition Disposition (needs filled in before D/C Order can be placed): Home, Self Care
--- NOTE | 2022-10-08 12:24 | PCM.PN.CARD ---
Subjective Subjective Overall patient feels well. Objective Data Vital Signs: Vital Signs Temp Pulse Resp BP Pulse Ox O2 Del Method 98.2 F 70 15 154/83 H 94 Room Air 10/08/22 09:25 10/08/22 09:25 10/08/22 09:25 10/08/22 09:25 10/08/22 10:10/08/22 10:26 Oxygen Delivery Method Room Air Weight: 158 lb 3.2 oz Body Mass Index (BMI) 29.9 Intake & Output: Intake and Output for Last 24 Hours 10/06/22 10/07/22 10/08/22 23:59 23:59 23:59 Intake Total 1250 / 1250 Balance 1250 / 1250 Lab / Micro Data Result Diagrams: 10/08/22 04:28 10/08/22 04:28 Labs: Laboratory Results - last 24 hr 10/07/22 10:20: Activated Clotting Time 197 H 10/07/22 11:10: Activated Clotting Time 245 H 10/08/22 04:28: WBC 9.5, RBC 3.04 L, Hgb 8.8 L, Hct 27.5 L, MCV 90.5, MCH 28.9, MCHC 32.0, RDW Std Deviation 43.7, RDW Coeff of Callie 13.1, Plt Count 256, MPV 10.7 10/08/22 04:28: Sodium 137, Potassium 3.7, Chloride 106, Carbon Dioxide 24.0, Anion Gap 7, BUN 22 H, Creatinine 0.97, Estim Creat Clear Calc 41.89, Est GFR (MDRD) Af Amer 74, Est GFR (MDRD) Non-Af 61, BUN/Creatinine Ratio 22.7 H, Glucose 106, Calcium 8.3 L, Total Bilirubin 0.60, AST 10 L, ALT 17, Alkaline Phosphatase 59, Total Protein 6.6, Albumin 3.2, Globulin 3.4, Albumin/Globulin Ratio 0.9 Cardiology Labs/Tests 10/08/22 04:28: WBC 9.5, RBC 3.04 L, Hgb 8.8 L, Hct 27.5 L, MCV 90.5, MCH 28.9, MCHC 32.0, Plt Count 256, MPV 10.7 10/08/22 04:28: Sodium 137, Potassium 3.7, Chloride 106, Carbon Dioxide 24.0, Anion Gap 7, BUN 22 H, Creatinine 0.97, Est GFR (MDRD) Af Amer 74, Est GFR (MDRD) Non-Af 61, BUN/Creatinine Ratio 22.7 H, Glucose 106, Calcium 8.3 L, Total Bilirubin 0.60 Rhythm: EKG: ECHO: Stress Test: Cardiac Cath: PCI: CT Surgery: Holter monitor: EPS: PPM: CXR: Chest CT Scan: Physical Exam Narrative Patient seen prior to discharge. Right radial pulse 2+. She acknowledges some discomfort and has been utilizing Tylenol to assist. She is instructed continue with Tylenol as needed as well as warm compress. She denies any chest pain or shortness of breath. Her telemetry does not reveal any sustained ventricular tachycardia. We will continue to monitor hemoglobin and creatinine as needed.
[2022-10-08 12:28] VITALS: BP 154/83; PULSE 70; RESP 15; TEMP 36.8; O2SAT 94
--- NOTE | 2022-10-08 12:31 | CASEMGMT ---
MARIAN CM in to complete SMITH form with patient. RN ATIF explained SMITH form to patient, patient voiced understanding. Patient signed SMITH form and filed in chart. Patient provided with copy of signed SMITH form. Patient had no further questions or concerns at this time.
--- NOTE | 2022-10-08 13:11 | PHA.DC.MR ---
Pharmacy Service has performed discharge medication reconciliation for this patient. No new medications at time of discharge medication list review. Medications reviewed are from previously reported home medications. Home Medications ergocalciferol (vitamin D2) 1,250 mcg (50,000 unit) capsule 1,250 mcg PO QWEEK vitamin 06/05/22 levothyroxine 75 mcg tablet 75 mcg PO DAILY thyroid 06/05/22 calcium carbonate 600 mg calcium (1,500 mg) tablet (Calcium) 600 mg PO DAILY vitamin 06/19/22 fluticasone propionate 50 mcg/actuation nasal spray,suspension (Flonase Allergy Relief) 2 spray intranasal DAILY PRN allergy symptoms 06/23/22 isosorbide mononitrate 30 mg tablet,extended release 24 hr 30 mg PO DAILY #30 tabs 06/23/22 loratadine 10 mg capsule (Claritin Liqui-Gel) 10 mg PO DAILY PRN allergic symptoms 06/23/22 omeprazole 20 mg tablet,delayed release 20 mg PO DAILY PRN Acid Reflux 06/23/22 pravastatin 40 mg tablet 40 mg PO QHS #30 tabs 07/17/22 valsartan 320 mg-hydrochlorothiazide 25 mg tablet 1 tab PO DAILY #30 tabs 08/04/22 aspirin 81 mg tablet,delayed release (Adult Aspirin Regimen) 81 mg PO DAILY heart health 10/08/22 The patient's discharge medication list was reviewed for discrepancies and discrepancies were resolved.
--- NOTE | 2022-10-08 13:49 | CL.I_ITS ---
Patient Name: KENDRA PINEDA Study Date: 10/07/2022 Performing: Parvin Rooney MD Ht: 61 inches 154.94 cm : 1955 Wt: 162 lbs 73.48 kg Age: 67 Gender: female BSA: 1.73 PROCEDURE(S) PERFORMED IC12-([id number])ELLIOT W/WO PTCA, SINGLE CORONARY ARTERY IC12-([id number])ELLIOT W/WO PTCA, SINGLE CORONARY ARTERY DC02-([id number])LHC/COR CLINICAL PROFILE AND CO-MORBIDITIES Heart Failure: None Stress/Imaging Stress Test w/SPECT MPI: Yes Result: Positive Intermediate Risk Stress Test with SPECT MPI: Positive Intermediate Risk CAD Presentations: Other: Dyspnea on exertion, likely angina equivalent CONCLUSIONS 75% Mid LAD; 90% Prox D1 (small 2 mm vessel) 75% Mid LCX; 80% distal LCX Unable to complete procedure through radial access on account of severe vasospasm, femoral access used for intervention Successful ELLIOT Mid LAD using Resolute [place] 3.0x30 mm, optimized proximally using 3.5 mm balloon Successful ELLIOT distal LCX using Resolute [place] 2.25x12 mm Successful ELLIOT Mid LCX using Resolute [place] 3.0x15 mm RECOMMENDATIONS ASA Indefinitley Plavix for at least 12 months DESCRIPTION OF PROCEDURE The patient arrived to the procedure lab. The risks and benefits of the procedure as well as a full description of our services here and lack of surgical backup were fully explained to the patient and/or their significant other prior to the catheterization. The Timeout was completed, verifying the correct patient and procedure. The patient's procedural site was prepped and draped in the usual fashion. Local anesthetic was given subcutaneously to right radial region with Lidocaine 2%. Local anesthetic was given subcutaneously to right groin region with Lidocaine 2%. Local anesthetic was given subcutaneously to right groin region with Lidocaine 2%. Using a modified Seldinger technique, arterial access was obtained via the right radial artery, a 6Fr sheath was inserted., arterial access was obtained via the right femoral artery, a 6Fr sheath was inserted.. Left Coronary Artery selective angiography was performed in multiple views using a 5 Fr. 4.0 [place] catheter. Right Coronary Artery selective angiography was then performed in multiple views using a 5 Fr. 3DRC (Kalen) catheterThe images were reviewed and options discussed. A decision was then made to proceed with an Intervention, IVUS or other adjunct procedure. xb 3 cordis Guide catheter was inserted and engaged into the LCA. runthrough Guide wire was advanced to the LAD. runthrough Guide wire was advanced to the CIRC. deisi 3.0 x 30 Drug Eluting stent was advanced across the lesion in the LAD, mid. Angiogram performed post stent deployment. nc emerge 3.0 x 20 Balloon catheter was inserted post stent. nc euphora 3.5 x 6 Balloon catheter was inserted post stent. Angiogram performed post balloon dilatation. deisi 2.5 x 12 Drug Eluting stent was advanced across the lesion in the circumflex, mid. nc euphora 2.25 x 12 Balloon catheter was inserted post stent. Angiogram performed post balloon dilatation. deisi 3.0 x 15 Drug Eluting stent was advanced across the lesion in the circumflex, mid. nc euphora 3.0 x 15 Balloon catheter was inserted post stent. Angiogram performed post balloon dilatation. Balloon catheter was removed The arterial sheath was pulled and a TR Band was applied for hemostasis. The arterial sheath was pulled and manual compression applied until hemostasis is achieved.r groin CORONARY ANGIOGRAPHY DOMINANCE: Right Dominant LEFT ANTERIOR DESCENDING ARTERY: LAD: Tubular 75% Mid lesion in LAD DIAGONAL 2: Tubular 80% Proximal lesion in 2nd Diagonal CIRCUMFLEX ARTERY: CIRCUMFLEX: Tubular 70% Mid lesion in Circumflex Tubular 80% Distal lesion in Circumflex RIGHT CORONARY ARTERY: RCA: Tubular 30% Ostial lesion in RCA RT PDA: Tubular 20% Proximal lesion in Right PDA INTERVENTION INFORMATION LESION SITE: LAD (Mid) Lesion Complexity: High/C, lesion length: 28 mm Pre Stenosis: 75 % Pre intervention JAZIEL flow: 3 PROCEDURE: Drug Eluting Stent with post dilatation Post Stenosis: 0 % Post intervention JAZIEL flow: 3 Lesion Devices: Cordis 6 Fr XB3.0 100cm Guide Catheter Terumo .014 180cm Runthrough Extra Floppy straight Medtronic Resolute Deisi RX ELLIOT 3.0x30 Medtronic NC EUPHORA RX 3.5x06 BALLOON Rodriguez Sci EMERGE MR 3.00x20 BALLOON LESION SITE: Circumflex (Mid) Lesion Complexity: Non-High/Non-C, lesion length: 10 mm Pre Stenosis: 80 % Pre intervention JAZIEL flow: 3 PROCEDURE: Drug Eluting Stent with post dilatation Post intervention JAZIEL flow: 3 Lesion Devices: Cordis 6 Fr XB3.0 100cm Guide Catheter Terumo .014 180cm Runthrough Extra Floppy straight Medtronic NC EUPHORA RX 2.25x12 BALLOON Medtronic Resolute [place] RX ELLIOT 3.0x15 Medtronic NC EUPHORA RX 3.0x15 BALLOON Medtronic Resolute [place] RX ELLIOT 2.25x12 LESION SITE: Circumflex (Mid) Lesion Complexity: Non-High/Non-C, lesion length: 13 mm Pre Stenosis: 75 % Pre intervention JAZIEL flow: 3 PROCEDURE: Drug Eluting Stent with post dilatation 0 % Post intervention JAZIEL flow: 3 COMPLICATIONS No Complications PROCEDURE MEDICATIONS Versed 2 mg IV Fentanyl 50 mcg IV Versed 2 mg IV Fentanyl 50 mcg IV Oxygen: 2 L/min via nasal cannula Brilinta 180 mg PO @ 10/07/2022 10:35:50 Heparin given IA 10/07/2022 09:49:51 Heparin given IA 10/07/2022 09:49:51 Heparin 5000 unit(s) IV 10/07/2022 10:28:10 Heparin 2000 unit(s) IV 10/07/2022 11:16:17 Nitro 200 mcg IC 10/07/2022 10:21:23 Nitro 200 mcg IC 10/07/2022 10:21:23 Nitro 200 mcg IC 10/07/2022 10:51:26 Verapamil 2.5mg, Ntg 200mcgs, 2000 units of Heparin given IA 10/07/2022 09:49:51 SUMMARY OF HEMODYNAMIC DATA Time AIR REST ECG 07:50:13 AO 179/80 (117) SA 09:49:37 AIR REST 11:28:08 Signed By Parvin Rooney MD On 10/07/2022 11:40:23 Parvin Rooney MD
== END 2022-10-08 12:24 | disposition home or self-care (01) ==
LOC: PCU 14:08
PROVIDERS: Admitting Provider Internal Medicine Cardiovascular Disease; PCP Family Medicine; Referring Provider Internal Medicine Cardiovascular Disease; Visit Provider Internal Medicine Cardiovascular Disease
DX: I25.10 Atherosclerotic heart disease of native coronary artery without angina pectoris (principal); I73.9 Peripheral vascular disease, unspecified; R94.39 Abnormal result of other cardiovascular function study; R94.31 Abnormal electrocardiogram [ECG] [EKG]; M54.31 Sciatica, right side; I10 Essential (primary) hypertension; K21.9 Gastro-esophageal reflux disease without esophagitis; R06.09 Other forms of dyspnea; Z79.899 Other long term (current) drug therapy; Z79.890 Hormone replacement therapy; Z79.82 Long term (current) use of aspirin; E06.3 Autoimmune thyroiditis; R01.1 Cardiac murmur, unspecified
CPT/HCPCS: 36415; 80048; 80053; 85027; 85347; 85610; 85730; 92928; 93005; 93454; 96360; 96361; 99152; 99153; 99221; C1725; J7030; J7040; Q9967; A4216; C1760; C1769; C1874; C1887; C1894; C9600; G0378; J2405

== ENCOUNTER → 2022-11-03 | Outpatient (CLI) | payer MEDICARE, SELFPAY ==
--- NOTE | 2022-11-03 09:34 | CR.ITP_ITS ---
Diagnosis Nutrition - Initial Assessment Nutrition - 30-Day Assessment Nutrition - 60-Day Assessment Nutrition - 90-Day Assessment Nutrition - Final Assessment Core - Initial Assessment Core - 30-Day Assessment Core - 60-Day Assessment Core - 90 Day Assessment Core - Final Assessment Psychosocial - Initial Assess Psychosocial - 30-Day Assess Psychosocial - 60-Day Assess Psychosocial - 90-Day Assess Psychosocial - Final Assessmen Nutrition Survey
--- NOTE | 2022-11-03 09:36 | CR.ITP_ITS ---
Diagnosis - General Information Admitting Diagnosis: Presence of coronary angioplasty implant & graft Secondary Diagnosis: HTN, HLD, obesity. Personal Learning Style:: Audio/Visual, Written Barriers to Learning: Vision Impairment Stage of change r/t lifestyle modifications:: Action Gave educational material for:: Treating Heart Disease, Emotions & Heart Disease, Stress Management & Relaxation, Sleep Disorders & Heart Disease, How The Heart Works, What it means to have Heart Disease, How Coronary Artery Disease is Diagnosed, Heart Procedures, What Heart Medications Do, Risk Factors & Modifications, Living an Active Life, Nutrition - Education/Goals Individual Counseling: Initial Assessment: Abnormal Cholesterol Levels, High Blood Pressure - 160/74, Overweight/Obesity - BMI 30.6 Cardiac Rehabilitation Goals: 1. Maintain the individual as the primary focus of care. 2. To improve the patient's quality of life. 3. Identification of cardiac risk factors and provide cardiac risk factor management. 4. Enhance the psychosocial status of the patient. 5. Reconditioning enough to allow the patient to resume customary activities. 6. Control symptoms of cardiac disease Personal Goals: Initial Assessment: Improve energy level, Get back to work, or to resume activities faster, Improve knowledge of cardiac disease, Improve muscle strength and endurance, Improve diet and eating habits (eat healthier), Control risk factors (learn risk factor modification) Scale for measuring improvement of personal goals: Enter appropriate number in Comments. 2 = Unchanged. 3 = Slightly Better. 4 = Moderate Improvement. 5 = Met my Goal - Diagnosis & Disease Process Outcomes/Goals: Pt IDs own risk factors & lifestyle modifications by Session 10, Verbalizes symptoms of angina & response by session 3., Pt independently manages Plan/Interventions: Assist Pt to ID & engage in lifestyle modification to reduce CVD risk, Instruct on individual risk factors, Review symptoms of angina & emergency actions, Review secondary diagnosis & identify educational needs. - Safety Referral to Physical Therapy: No Referral to [facility] Case Management: No Fall Risk Assessed:: Yes Assistive Devices:: None Exercise - Initial Assessment - Visit Date of Eval: 11/03/22 Session #:: 0 - pre-cardiac rehab evaluation Mets: Pre-: >5 METS for 30 minutes by discharge - Physician Prescribed Exercise Modalities: Treadmill, Airdyne, NuStep Frequency: 3x/week for 12 weeks [36 sessions] Intensity: 60-80% of age predicted maximum heart rate reserve Current METSs:: 3.0 Target Heart Rate:: 99-114 then 114-128 Resting Blood Pressure: 160/74 EKG Type: Normal Sinus Rhythm - Outcomes & Goals Goals:: Verbalizes understanding of THR, RPE & goal METS by session 6, Documents in home exercise log/reports 30 min aerobic 5 day/wk by DC, Demonstrates accurate pulse taking by DC - Intervention & Plan Exercise Program Goals: Instruct on personal THR & RPE, Instruct on MET level & personal MET goal, Show patient to take own pulse /validate performance until accurate, Instruct on home exercise - Physical Activity Home Exercise Physical Activity - Home Exercise: Safe Exercise, Warm-up, Self-monitoring, Cool-Down, Home Exercise > 30 min Daily, Sitting Time <3 hours/daily - Outcomes & Goals Outcomes/Goals: Demonstrates correct Warm-up/exercise Cool-Down (S3) if = 2.5 METs, Verbalizes symptoms of exercise intolerance by Session 3 (S3), Demonstrate safe equipment use (S3) & follows exercise prescrition (6) - Intervention & Plan Plan/Intervention: Instruct warm-up & cool-down if exercising at > 2 METs, Instruct on symptoms of exercise intolerance & actions to take, Instruct & monitor on saf, Assess intial functional capacity & safety risk Nutrition - Initial Assessment - Program Goals Nutrition Program Goals: LDL <100 optimal. 100 - 129 Near optimal. 130 - 159 Borderline High. 160 - 189 High. Total Cholesterol <200 desirable. 200 - 239 Borderline High. >/= 240 High. HDL < 40 Low >/=60 High. Triglycerides <150 desirable. <199 optimal. VlDL 5 - 40. HgbA1C <7%. BMI <25 Patient has diagnosis of Hyperlipidemia (ICD E78)?: Yes - Visit Date of Assessment:: 11/03/22 Session #:: 0 - Pre-cardai Rehab Evaluation - Cholesterol/Lipids (Other Core Measures) Triglycerides (mg/dL): 202 Total Cholesterol (mg/dL): 170 LDL Cholesterol (mg/dL): 81 HDL Cholesterol (mg/dL): 49 Determine presence & major risk factors that modify LDL goal: Hypertension or hypertensive medication, Family history of premature CHD in Male < 55 years: female <65 yearsFa, Age men > 45 years; women >/= 55 years Outcomes/Goals: Pt IDs own risk factors & lifestyle modifications by Session 10, Verbalizes symptoms of angina & response by session 3., Pt independently manages Intervention/Plan: Instruct on personal lipid levels & lipid goals/NCEP guidelines, Instruct on cholesterol - Diabetes (Other Core Measures) Diabetes Type: Not Applicable - Weight Mgt (Other Care) Not Applicable: Yes Height: 5 ft 1 in Weight:: 162 lb BMI: 30.6 Diagnosis Overweight/Obesity BMI> 30% ICD-10 E66: Yes Diagnosis High BMI/Morbid Obesity BMI> 35% ICD-10 Z68: No Outcomes/Goals: Pt sets, maintains & shows weight loss goal & trend during rehab Intervention/Plan: Instruct on ideal BMI & set weight loss goal w/patient, Assist pt to ID & incorporate diet changes for weight loss by S9, Refer to Structured Weight Loss program as appropriate, Encourage goal of using 250- 300dcal per session for weight loss - Healthy Eating Habits Will attend diet classes:: Yes Outcomes/Goals:: Consume diet rich in vegs,fruits,whole grain/high fiber,fish,lean meat, Limit sat/trans fats,cholesterol & added salts & sugars Intervention/Plan:: Assess current eating habits - Education Gave educational materials for:: Healthy eating Nutrition - 30-Day Assessment Nutrition - 60-Day Assessment Nutrition - 90-Day Assessment Nutrition - Final Assessment Core - Initial Assessment - Visit Date of Eval: 11/03/22 Session #:: 0 - Pre cardiac rehab evaluation - Medication Compliance Preventative Medication(s):: Aspirin, Clopidogrel/P2Y12 inhibit, Statin/lipid, Beta lindsey H/O mental health issues: depression, anxiety, or addiction?: No Doesn?t believe in the benefits of treatment?: No Believes medications are unnecessary or harmful?: No Has a concern about medication side effects?: No Expresses concern over the cost of medications?: No Outcomes/Goals: Verbalizes medications,desired effect & common side effects @ DC, Pt self-reports following medication regimen, Keeps card in wallet w/medications listed by DC Interventions/plans: Instruct on medication effects & side effects, Review medication list w/patient every two weeks, Instruct importance of taking meds as ordered & assist problem solving - Tobacco Use Tobacco Use: Non-smoker - Hypertension Hypertension Diagnosis:: Hypertension ICD-10 I10 Resting Blood Pressure:: 160/74 [place] [employer] Hypertension Guidelines: [place] [employer] Hypertension Guidelines. Normal BP Less than 120/80. Elevated BP 120/80. Hypertension Stage 1: BP 130-139/80-89. Hypertesnion Stage 2: BP 140 or higher/90 or higher. Hypertension Crisis: BP higher than 180/120 Outcomes/Goals: Able to verbalize/achieve optimal blood pressure <130/80, Incorporates diet changes & exercise for blood pressure control by DC Interventions/plan: Instruct on optimal blood pressure, hypertension & medications, Instruct on effects of sodium, alcohol, stress, exercise &hypertension - Tobacco Cessation Referral Smoking Cessation Referral:: No Individual Education/Counseling:: No Education Schedule Given:: Yes Core - 30-Day Assessment Core - 60-Day Assessment Core - 90 Day Assessment Core - Final Assessment Psychosocial - Initial Assess - VIsit Date of Eval: 11/03/22 Session #:: 0 - Pre cardiac rehab evaluation Not Applicable: No History of previous Mental disease:: Yes History of Emotional Disorders: Depression - Psychosocial Test Tool Used:: Arsalan Novoa QOL Cardiac, PHQ-9 Questionnaire phq-9 Severity: Severity. 1-4 Minimal Depression. 5-9 Mild Depression. 10-14 Moderate Depression. 15-19 Moderately Sever Depression. 20-27 Severe Depression. Rule: - Referral to Behavioral Health PS - Interventions: Yes Attend Stress Management Classes, No Referral to Behavioral Health if PHQ-9 score >9:, No Referral to [facility], No Referral to Physician if PHQ-9 if score is 5-9: - Outcomes/Goals: See list Psychosocial Outcomes/Goals:: ID's personal stressors & 2 strategies to manage stress by discharge - Intervention/Plan: See List Interventions/Plan:: Assess stressors,coping strategies & signs of derpression on admission, Instruct/assist pt to develop coping & personal stress Mgt strategies, Instruct patient to recognize signs & symptoms of depression, Instruct patient to recog Psychosocial - 30-Day Assess Psychosocial - 60-Day Assess Psychosocial - 90-Day Assess Psychosocial - Final Assessmen Patient Health Questionnaire Initial Assessment 1. Little interest or pleasure in doing things: More than half the days 2. Feeling down, depressed, or hopeless: Not at all 3. Trouble falling or staying asleep, or sleeping too much: More than half the days 4. Feeling tired or having little energy: More than half the days 5. Poor appetite or overeating: Not at all 6. Feeling bad about yourself -- or that you are a failure or have let yourself or your family down: Not at all 7. Trouble concentrating on things, such as reading the newspaper or watching television: Not at all 8. Moving or speaking so slowly that other people could have noticed. Or the opposite - being so fidgety or restless that you have been moving around a lot more than usual: Not at all 9. Thoughts that you would be better off , or of hurting yourself in some way: Not at all How difficult have these problems made it for you to do your work, take care of things at home, or get along with other people?: Not difficult at all Total Score: 6 DARRYL-Q SV Test - Statements CAD is a disease of the arteries in the heart: False Examples of risk factors for heart disease: True Angina is chest pain or discomfort: I Don't Know The benefits of resistance training include: True Eating more meat and dairy products: False Anti-platelet medications such as aspirin are important: True The only effective way to manage stress: False An exercise warm-up slowly increases heart rate: True Prepared, processed foods usually have high sodium: True Depression is common after a heart attack: I Don't Know The statin medications lower cholesterol: True To control blood pressure, lower the amount of sodium: True If someone gets chest discomfort during walking: False Transfats are partially hydrogenated vegetable oils: True Sleep apnea that is not treated increases the risk: False To control cholesterol, one should become a vegetarian: False Someone knows if he/she is exercising at the right level: True Diabetes cannot be prevented with exercise & health eating: I Don't Know Stress is a large risk for heart attack: True A diet that can help lower blood pressure is rich in: True - Total Score Total Correct Responses: 17 Self-Efficacy Initial Assessment We would like to know how confident you are in doing certain activities. Please select your confidence level for:: Select your confidence level for the following using the scale 1-10 where 1 is not at all confident and 10 is totally confident. Your score is the average of all 6 responses. Fatigue: How confident are you that you can keep the fatigue caused by your disease from interfering with the things you want to do? Select Number: 6 Physical Discomfort or Pain: How confident are you that you can keep the physical discomfort or pain of your disease from interfering with the things you want to do? Select Number: 6 Emotional Distress: How confident are you that you can keep the emotional distress caused by your disease from interfering with the things you want to do? Select Number: 6 Other Symptoms or Health Problems: How confident are you that you can keep other symptoms or health problems from interfering with the things you want to do? Select Number: 6 Different Tasks and Activities: How confident are you that you can do the different tasks and activities needed to manage your health condition so as to reduce your need to see a doctor? Select Number: 4 Medication: How confident are you that you can do things other than just taking medication to reduce how much your illness affects your everyday life? Select Number: 6 Total Score:: 5 Nutrition Survey - Nutrition Survey Initial Have you lost >10 lbs over the past 2 months without trying?: No Are you following a special diet at home for diabetes, low fat, or low salt?: No Are you interested in meeting with a dietitian for help understanding your diet?: Yes Do you eat less than 3 meals a day?: Yes Do you eat fatty meats (mathews, sausage, ribs, etc), fried foods, desserts, large amounts of salad dressings, margarine, butter, or cheese most days?: Yes Do you have food allergies? [Enter types in comment field]: Yes - [place] Do you eat in restaurants more than 3 times a week?: Yes Do you season food with salt, seasoning salt, or garlic salt?: Yes Do you used canned, boxed, frozen meals, or soups, seasoning packets?: Yes Total Score:: 7
--- NOTE | 2022-11-03 09:37 | PCM.CR.HP2 ---
CR - History & Physical - General Arrival date:: 11/03/22 Arrival time:: 09:30 Date of Referral:: 10/09/22 Date of CR Evaluation:: 11/03/22 - Patient had rescheduled apppointment Referring Physician: Dr. Parvin Rooney Primary Diagnosis: PCI w/coronary stenting - History of Present Cardiac Event Onset Date: Enter Onset Date of cardiac illnesses in Comment field below PTCA or coronary stenting:: Yes - 10/09/2022 Type of Symptoms:: Increase fatigue, scheduled for a thyroid surgery Dr. worrell and EKG and found abnormalities. I was then scheduled for a stress test and sent over to have a heart cath done and ended up with a stent. Currently cancelled the thyroid surgery but rescheduled for [facility] in April for the surgery. Interventions with present event:: Abnormal stress test and heart cath found bloackage Were there any complications?: None - Sleep Disorder Evaluation Hx of Sleep Apnea: Yes Do you snore loudly (louder than talking or can be heard through closed doors)?: Yes - just started on CPAP in the last 30 days. Do you often feel tired/ fatigued/ sleepy during daytime?: Yes Has anyone observed you stop breathing during sleep?: No History of Hypertension (for STOP score): Yes STOP Results: Positive - Medications Home Medications: Ambulatory Orders Medication Instructions Recorded ergocalciferol (vitamin D2) 1,250 1,250 mcg PO QWEEK vitamin 06/05/22 mcg (50,000 unit) capsule levothyroxine 75 mcg tablet 75 mcg PO DAILY thyroid 06/05/22 calcium carbonate 600 mg calcium 600 mg PO DAILY vitamin 06/19/22 (1,500 mg) tablet (Calcium) fluticasone propionate 50 2 spray intranasal DAILY PRN 06/23/22 mcg/actuation nasal allergy symptoms spray,suspension (Flonase Allergy Relief) isosorbide mononitrate 30 mg 30 mg PO DAILY #30 tabs 06/23/22 tablet,extended release 24 hr loratadine 10 mg capsule (Claritin 10 mg PO DAILY PRN allergic 06/23/22 Liqui-Gel) symptoms omeprazole 20 mg tablet,delayed 20 mg PO DAILY PRN Acid Reflux 06/23/22 release pravastatin 40 mg tablet 40 mg PO QHS #30 tabs 07/17/22 valsartan 320 1 tab PO DAILY #30 tabs 08/04/22 mg-hydrochlorothiazide 25 mg tablet aspirin 81 mg tablet,delayed 81 mg PO DAILY heart health 10/08/22 release (Adult Aspirin Regimen) clopidogrel 75 mg tablet (Plavix) 75 mg PO QDAY #90 tabs 10/08/22 - Allergies Allergies/Adverse Reactions: Allergies doxycycline Adverse Reaction (Intermediate, Verified 08/04/22 13:13) Nausea Advanced Directives - Advanced Directives Power of Solar Installation Technician: No Living Will: No Advance Directives Information Provided: Yes Advance Directives on File: No DNR Order?:: No - MOLST See MOLST form: No Past Medical History - Covid-19 Screening Fever: No Unexplained muscle aches: No Current respiratory symptoms: No Upper respiratory infections symptoms: No Gastro-intestinal symptoms: Yes - History of GERD [id number]-[id number]-[id number] symptoms: No Has tested positive for COVID-19 in last 30 days: No Date of testin11/03/22 - two step vaccine and one of the boosters Had contact w/person w/symptoms or Covid-19 (+) last 14 days: Yes Has High Risk Exposures ID'd by Health dept/Inf Control team: No 65 years or older:: Yes Lives in Assisted Living facility:: No Has a chronic lung disease or moderate to severe asthma:: No Has a serious heart condition:: No Immunocompromised:: No Severely obese (Body Mass Index of 40 or higher):: No Diabetic:: No Has chronic kidney disease undergoing dialysis:: No Has liver disease:: No - Past Medical Illness Medical History: Past Medical History (Last Updated 10/09/22 @ 08:34 by Mitra De Jesus) Abnormal ECG R94.31 Abnormal stress test R94.39 Alcohol use Z72.89 2X WEEKLY Anxiety F41.9 NO MEDS Atherosclerosis of coronary artery of [place] heart without angina pectoris I25.10 Cervicalgia M54.2 Dyspnea on exertion R06.09 Esotropia of left eye H50.00 GERD (gastroesophageal reflux disease) K21.9 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 cerebral palsy) G80.9 Leg cramps R25.2 OCC Low iron E61.1 PREVIOUSLY TREATED, RESOLVED Marijuana use F12.90 EVERYDAY USE Multinodular goiter E04.2 Non-smoker Z78.9 Seizures R56.9 ONCE WHEN PT WAS 5 DURING SURGERY Thyroid disease E07.9 Wears glasses Z97.3 - Past Surgical History Surgical History: Past Surgical History (Last Updated 10/09/22 @ 08:35 by Mitra De Jesus) History of coronary artery stent placement Onset Date: ~10/07/22 Z95.5 Mid UYJ-DGL-Upnietdf Reese 3.0x30mm, Distal LCX-ELLIOT Resolute Reese 2.49b69xk, Mid EZN-EDS-Bghzqihz Reese 3.0x15mm Hx of eye surgery Z98.890 FOR LAZY EYE Hx of tubal ligation Z98.51 1989 - Family History Summary Family History: Family History (Last Reviewed 08/04/22 @ 13:15 by Mitra De Jesus) Mother Breast cancer Father Heart disease Sister Cancer lung Daughter Yolanda's disease Social History - Smoking History Smoking Status: Never smoker - Alcohol Use Alcohol Usage: Yes - occasional during hte week but on weekends have a couple of drinks w/[employer] - Substance Abuse Hx Substance Use: Yes - Marijuanna - medicinal use - Occupation Occupation (List type of work in comments):: 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 Left click = Reports ([place]) Review of Present Symptoms: Reports: Shortness of Breath with Exertion - when walking up hill or and incline notices some shortness of breath but is improving., Fatigue - improving daily, still taking a nap daily, but has improved since before the stent, Sleep - Normal - sleeps 2-3 hours even with CPAP, but has always the one that.. Denies: Shortness of Breath at Rest, Angina, Dizziness/Lightheadedness, Appetite - Normal - decreased appetite, Appetite - Special Diet - just watching fried foods and slat - Pain Is Patient Pain Free?: Yes Pain Location: none Risk Factor Assessment - Chief Complaint Chief Complaint: The patient presents to cardiac rehab today under the direction of Dr. Matt follwoing a recent abnormal stress test, heart cath procedure resulting in coronary stenting. - Vital Signs Temperature: 98.5 F Respiratory Rate: 16 Pulse Ox: 94 Blood Pressure: 160/74 - Pulse Pulse Rate: 61 - Hypertension Blood Pressure Sitting - Left Arm: 160/74 - Blood Cholesterol/Lipids Total Cholesterol (mg/dL) Goal = less than 200 mg/dL: 170 HDL Cholesterol (mg/dL) Goal = less than 40 mg/dL: 49 LDL Cholesterol (mg/dL) Goal = less than 70 mg/dL: 81 Triglycerides (mg/dL) Goal = less than 150 mg/dL: 202 - Obesity Height: 5 ft 1 in Weight:: 162 lb Weight in Pounds: 162.0 lbs Weight Source: Stated by Patient Body Mass Index (BMI): 30.6 Nutritional Referral for Obesity: Yes - Physical Inactivity Physical Inactivity: Recreational activity - Risk Stratification Risk Guidelines: Lowest Risk: Risk Factor for Smoking, Risk Factor for Dyslipidemia, Risk Factor for Diabetes, Risk Factor for Sedentary Lifestyle, Risk Factor for Depression, Moderate Risk: Risk Factor for Hypertension - 160/74, Highest Risk: Risk Factor for Obesity - Family History Family History: Family History (Last Reviewed 08/04/22 @ 13:15 by Mitra De Jesus) Mother Breast cancer Father Heart disease Sister Cancer Daughter Yolanda's disease Motivation - Motivation to Participate On a scale of 1 to 10, how prepared are you to commit to attending program?: 10 What do you see as barriers to successfully being able to complete the program?: Anxieties What do you see as the benefits of succesfully completing the program? In other words, what do you hope to get out of participating in the program?: healthier, less fatigue. Are there issues you are dealing with that will interfere with completing the program?: none Do you have a spouse or signficant other, family or friends who will help support you to complete the program?: yes
[2022-11-03 10:10] VITALS: BP 160/74; PULSE 61; RESP 16; TEMP 36.9; O2SAT 94; BMI 30.6
[2022-11-03 10:25] VITALS: BP 160/74; BMI 30.6
== END | disposition home or self-care (01) ==
LOC: CR 09:28
PROVIDERS: PCP Family Medicine; Visit Provider Internal Medicine Cardiovascular Disease
DX: Z95.1 Presence of aortocoronary bypass graft (principal)

== ENCOUNTER 2022-11-09 11:30 | Outpatient (RCR) | payer MEDICARE, SELFPAY ==
[2022-11-03 10:25] VITALS: BMI 30.6
== END 2022-11-10 23:59 ==
LOC: CR 11:30
PROVIDERS: PCP Family Medicine; Referring Provider Internal Medicine Cardiovascular Disease; Visit Provider Internal Medicine Cardiovascular Disease
DX: Z95.5 Presence of coronary angioplasty implant and graft (principal)
CPT/HCPCS: 93798

== ENCOUNTER → 2022-11-13 | Outpatient (CLI) | payer MEDICARE, SELFPAY ==
[2022-11-03 10:25] VITALS: BMI 30.6
[2022-11-13 10:45] LABS: Hematocrit 31.7 % (37-47); Hemoglobin 10.1 g/dL (12.0-15.0); Mean Corp Hgb Conc 31.9 g/dL (32-36); Mean Corpuscular Hgb 29.3 pg (27.0-32.0); Mean Corpuscular Volume 91.9 fL (81-99); Mean Platelet Vol. 10.2 fl (6.2-12.0); Platelet Count 323 K/mm3 (150-450); RBC Distribution Width CV 13.1 % (11.6-14.6); Red Blood Count 3.45 M/mm3 (4.2-5.4); White Blood Count 5.3 K/mm3 (4.4-11.0)
[2022-11-13 11:20] LABS: AST(SGOT) 20 U/L (15-37); Alanine Aminotransfer ALT/SGPT 26 U/L (13-56); CPK Total, Creatine Kinase 94 U/L (26-192); Cholesterol 152 mg/dL (200); High Density Lipoprotein 48 mg/dL; Triglycerides 158 mg/dL; Very Low Density Lipoprotein 32 mg/dL (5-40)
== END | disposition home or self-care (01) ==
LOC: LAB 10:06
PROVIDERS: PCP Family Medicine; Referring Provider Internal Medicine Cardiovascular Disease; Visit Provider Internal Medicine Cardiovascular Disease
DX: I25.10 Atherosclerotic heart disease of native coronary artery without angina pectoris (principal); I10 Essential (primary) hypertension
CPT/HCPCS: 36415; 80061; 82550; 84450; 84460; 85027

== ENCOUNTER 2022-12-11 11:30 | Outpatient (RCR) | payer MEDICARE, SELFPAY ==
[2022-11-03 10:25] VITALS: BMI 30.6
--- NOTE | 2022-12-02 09:55 | PCM.CR.ITP ---
Diagnosis Exercise - 30-day Assessment - Visit Date of Eval: 12/02/22 Session #:: 11 - Physician Prescribed Exercise Modalities: Treadmill, Airdyne, NuStep Frequency: 3x/week for 12 weeks [36 sessions] Duration: 30 - 45 minutes Current METSs:: 4.0 Target Heart Rate:: 114-129 Current RPE:: 12-13 Maximum Excercise HR:: 142 Resting Blood Pressure: 118/60 Maximum Exercise Blood Pressure: 184/100 EKG Type: Sinus cass to sinus tach with rare and isolated PVC and PACs Current Physical Activity or Exercising minutes: 34 - Outcomes & Goals Goals:: Verbalizes understanding of THR, RPE & goal METS by session 6, Documents in home exercise log/reports 30 min aerobic 5 day/wk by DC, Demonstrates accurate pulse taking by DC - Intervention & Plan Exercise Program Goals: Instruct on personal THR & RPE, Instruct on MET level & personal MET goal, Show patient to take own pulse /validate performance until accurate, Instruct on home exercise - 30-day Reassessments 30 day Reassessments:: Met - Physical Activity Home Exercise Physical Activity - Home Exercise: Safe Exercise, Warm-up, Self-monitoring, Cool-Down, Home Exercise > 30 min Daily, Sitting Time <3 hours/daily - Outcomes & Goals Outcomes/Goals: Demonstrates correct Warm-up/exercise Cool-Down (S3) if = 2.5 METs, Verbalizes symptoms of exercise intolerance by Session 3 (S3), Demonstrate safe equipment use (S3) & follows exercise prescrition (6) - Intervention & Plan Plan/Intervention: Instruct warm-up & cool-down if exercising at > 2 METs, Instruct on symptoms of exercise intolerance & actions to take, Instruct & monitor on saf, Assess intial functional capacity & safety risk - 30-day Reassessments 30 day Reassessments:: Met Nutrition - Initial Assessment Nutrition - 30-Day Assessment - Program Goals Nutrition Program Goals: LDL <100 optimal. 100 - 129 Near optimal. 130 - 159 Borderline High. 160 - 189 High. Total Cholesterol <200 desirable. 200 - 239 Borderline High. >/= 240 High. HDL < 40 Low >/=60 High. Triglycerides <150 desirable. <199 optimal. VlDL 5 - 40. HgbA1C <7%. BMI <25 Patient has diagnosis of Hyperlipidemia (ICD E78)?: Yes - Visit Date of Assessment:: 12/02/22 Session #:: 11 - Cholesterol/Lipids (Other Core Measures) Triglycerides (mg/dL): 202 Total Cholesterol (mg/dL): 170 LDL Cholesterol (mg/dL): 81 HDL Cholesterol (mg/dL): 49 Determine presence & major risk factors that modify LDL goal: Hypertension or hypertensive medication, Family history of premature CHD in Male < 55 years: female <65 yearsFa, Age men > 45 years; women >/= 55 years Outcomes/Goals: Pt IDs own risk factors & lifestyle modifications by Session 10, Verbalizes symptoms of angina & response by session 3., Pt independently manages Intervention/Plan: Instruct on personal lipid levels & lipid goals/NCEP guidelines, Instruct on cholesterol Referral to dietitian:: Yes - Medical Nutrition Therapy 30-day Reassessments:: Progressing - Diabetes (Other Core Measures) Diabetes Type: Not Applicable - Weight Mgt (Other Care) Height: 5 ft 1 in Weight:: 161 lb BMI: 30.4 Diagnosis Overweight/Obesity BMI> 30% ICD-10 E66: No Diagnosis High BMI/Morbid Obesity BMI> 35% ICD-10 Z68: No Outcomes/Goals: Pt sets, maintains & shows weight loss goal & trend during rehab Intervention/Plan: Instruct on ideal BMI & set weight loss goal w/patient, Assist pt to ID & incorporate diet changes for weight loss by S9, Encourage goal of using 250-300dcal per session for weight loss 30 day Reassessments:: Progressing - Healthy Eating Habits Will attend diet classes:: Yes Outcomes/Goals:: Consume diet rich in vegs,fruits,whole grain/high fiber,fish,lean meat, Limit sat/trans fats,cholesterol & added salts & sugars Intervention/Plan:: Assess current eating habits 30-day Reassessments:: Progressing - Education Gave educational materials for:: Healthy eating Nutrition - 60-Day Assessment Nutrition - 90-Day Assessment Nutrition - Final Assessment Core - Initial Assessment Core - 30-Day Assessment - Visit Date of Eval: 12/02/22 Session #:: 11 - Medication Compliance Preventative Medication(s):: Aspirin, Ticagrelor/P2Y12 inhibitor, Statin/lipid, Beta lindsey H/O mental health issues: depression, anxiety, or addiction?: No Doesn?t believe in the benefits of treatment?: No Believes medications are unnecessary or harmful?: No Has a concern about medication side effects?: No Expresses concern over the cost of medications?: No Outcomes/Goals: Verbalizes medications,desired effect & common side effects @ DC, Pt self-reports following medication regimen, Keeps card in wallet w/medications listed by DC Interventions/plans: Instruct on medication effects & side effects, Review medication list w/patient every two weeks, Instruct importance of taking meds as ordered & assist problem solving 30-day Reassessments:: Met - Tobacco Use Tobacco Use: Non-smoker - Hypertension Hypertension Diagnosis:: Hypertension ICD-10 I10 Resting Blood Pressure:: 118/60 [place] [employer] Hypertension Guidelines: [place] [employer] Hypertension Guidelines. Normal BP Less than 120/80. Elevated BP 120/80. Hypertension Stage 1: BP 130-139/80-89. Hypertesnion Stage 2: BP 140 or higher/90 or higher. Hypertension Crisis: BP higher than 180/120 Peak Exercise Blood Pressure:: 128/60 Outcomes/Goals: Able to verbalize/achieve optimal blood pressure <130/80, Incorporates diet changes & exercise for blood pressure control by DC Interventions/plan: Instruct on optimal blood pressure, hypertension & medications, Instruct on effects of sodium, alcohol, stress, exercise &hypertension 30 day Reassessments:: Met - Tobacco Cessation Referral Smoking Cessation Referral:: No Individual Education/Counseling:: No Education Schedule Given:: Yes Core - 60-Day Assessment Core - 90 Day Assessment Core - Final Assessment Psychosocial - Initial Assess Psychosocial - 30-Day Assess - VIsit Date of Eval: 12/02/22 Session #:: 11 Not Applicable: Yes History of previous Mental disease:: No - Psychosocial Test Tool Used:: PHQ-9 Questionnaire phq-9 Severity: Severity. 1-4 Minimal Depression. 5-9 Mild Depression. 10-14 Moderate Depression. 15-19 Moderately Sever Depression. 20-27 Severe Depression. Rule: - Referral to Behavioral Health PS - Interventions: Yes Attend Stress Management Classes, No Referral to Behavioral Health if PHQ-9 score >9:, No Referral to [facility], No Referral to Physician if PHQ-9 if score is 5-9: - Outcomes/Goals: See list Psychosocial Outcomes/Goals:: ID's personal stressors & 2 strategies to manage stress by discharge - Intervention/Plan: See List Interventions/Plan:: Assess stressors,coping strategies & signs of derpression on admission, Instruct/assist pt to develop coping & personal stress Mgt strategies, Instruct patient to recognize signs & symptoms of depression, Instruct patient to recog - 30-day Reassessments: 30 day Reassessments:: Met Psychosocial - 60-Day Assess Psychosocial - 90-Day Assess Psychosocial - Final Assessmen Patient Health Questionnaire 30-Day Re-eval Assessment 1. Little interest or pleasure in doing things: Several days 2. Feeling down, depressed, or hopeless: Not at all 3. Trouble falling or staying asleep, or sleeping too much: More than half the days 4. Feeling tired or having little energy: Several days 5. Poor appetite or overeating: Not at all 6. Feeling bad about yourself -- or that you are a failure or have let yourself or your family down: Not at all 7. Trouble concentrating on things, such as reading the newspaper or watching television: Not at all 8. Moving or speaking so slowly that other people could have noticed. Or the opposite - being so fidgety or restless that you have been moving around a lot more than usual: Not at all 9. Thoughts that you would be better off , or of hurting yourself in some way: Not at all How difficult have these problems made it for you to do your work, take care of things at home, or get along with other people?: Not difficult at all Total Score: 4 Self-Efficacy 30-Day Re-eval Assessment We would like to know how confident you are in doing certain activities. Please select your confidence level for:: Select your confidence level for the following using the scale 1-10 where 1 is not at all confident and 10 is totally confident. Your score is the average of all 6 responses. Fatigue: How confident are you that you can keep the fatigue caused by your disease from interfering with the things you want to do? Select Number: 8 Physical Discomfort or Pain: How confident are you that you can keep the physical discomfort or pain of your disease from interfering with the things you want to do? Select Number: 8 Emotional Distress: How confident are you that you can keep the emotional distress caused by your disease from interfering with the things you want to do? Select Number: 8 Other Symptoms or Health Problems: How confident are you that you can keep other symptoms or health problems from interfering with the things you want to do? Select Number: 8 Different Tasks and Activities: How confident are you that you can do the different tasks and activities needed to manage your health condition so as to reduce your need to see a doctor? Select Number: 6 Medication: How confident are you that you can do things other than just taking medication to reduce how much your illness affects your everyday life? Select Number: 8 Total Score:: 7 Nutrition Survey
[2022-12-02 10:10] VITALS: BP 118/60; BP 128/60; BMI 30.4
== END 2022-12-11 23:59 ==
LOC: CR 11:30
PROVIDERS: PCP Family Medicine; Referring Provider Internal Medicine Cardiovascular Disease; Visit Provider Internal Medicine Cardiovascular Disease
DX: Z95.5 Presence of coronary angioplasty implant and graft (principal)
CPT/HCPCS: 93798; 97802

== ENCOUNTER 2023-01-08 11:30 | Outpatient (RCR) | payer MEDICARE, SELFPAY ==
[2022-12-02 10:10] VITALS: BMI 30.4
[2022-12-12 02:07] VITALS: BP 118/60; BP 128/60
--- NOTE | 2023-01-01 08:36 | PCM.CR.ITP ---
Diagnosis Exercise - 60-day Assessment - Visit Date of Eval: 01/01/23 Session #:: 25 - Physician Prescribed Exercise Modalities: Treadmill, Airdyne, NuStep Frequency: 3x/week for 12 weeks [36 sessions] Intensity: 60-80% of age predicted maximum heart rate reserve Current METSs:: 5 Target Heart Rate:: 114-129 Current RPE:: 11-14 Maximum Excercise HR:: 141 Resting Blood Pressure: 126/78 Maximum Exercise Blood Pressure: 182/100 EKG Type: NSR to ST with rare PAC, PVC - Outcomes & Goals Goals:: Verbalizes understanding of THR, RPE & goal METS by session 6, Documents in home exercise log/reports 30 min aerobic 5 day/wk by DC, Demonstrates accurate pulse taking by DC, Other additional outcome/goals: see below - Intervention & Plan Exercise Program Goals: Instruct on personal THR & RPE, Instruct on MET level & personal MET goal, Show patient to take own pulse /validate performance until accurate, Instruct on home exercise, Other additional plan/int - 30-day Reassessments 30 day Reassessments:: Progressing - pulse taking demonstrated - Physical Activity Home Exercise Physical Activity - Home Exercise: Safe Exercise, Warm-up, Self-monitoring, Cool-Down, Home Exercise > 30 min Daily, Sitting Time <3 hours/daily - Outcomes & Goals Outcomes/Goals: Demonstrates correct Warm-up/exercise Cool-Down (S3) if = 2.5 METs, Verbalizes symptoms of exercise intolerance by Session 3 (S3), Demonstrate safe equipment use (S3) & follows exercise prescrition (6), Other: See below - Intervention & Plan Plan/Intervention: Instruct warm-up & cool-down if exercising at > 2 METs, Instruct on symptoms of exercise intolerance & actions to take, Instruct & monitor on saf, Assess intial functional capacity & safety risk, Other See below - 30-day Reassessments 30 day Reassessments:: Progressing - sake exercise explained Nutrition - Initial Assessment Nutrition - 30-Day Assessment Nutrition - 60-Day Assessment - Program Goals Nutrition Program Goals: LDL <100 optimal. 100 - 129 Near optimal. 130 - 159 Borderline High. 160 - 189 High. Total Cholesterol <200 desirable. 200 - 239 Borderline High. >/= 240 High. HDL < 40 Low >/=60 High. Triglycerides <150 desirable. <199 optimal. VlDL 5 - 40. HgbA1C <7%. BMI <25 Patient has diagnosis of Hyperlipidemia (ICD E78)?: Yes - Visit Date of Assessment:: 01/01/23 Session #:: 25 - Cholesterol/Lipids (Other Core Measures) Determine presence & major risk factors that modify LDL goal: Hypertension or hypertensive medication, Low HDL cholesterol <40 mg/dL*, Family history of premature CHD in Male < 55 years: female <65 yearsFa, Age men > 45 years; women >/= 55 years Outcomes/Goals: Pt IDs own risk factors & lifestyle modifications by Session 10, Verbalizes symptoms of angina & response by session 3., Pt independently manages, Other Additional Outcomes/Goals: Intervention/Plan: Advocate for lipid panel cholesterol medication if applicable, Instruct on personal lipid levels & lipid goals/NCEP guidelines, Instruct on cholesterol, Other additional plan/int 30-day Reassessments:: Progressing - encouraged to do bloodwork - Diabetes (Other Core Measures) Diabetes Type: Not Applicable - Weight Mgt (Other Care) Height: 5 ft 1 in Weight:: 71.668 kg BMI: 29.8 Diagnosis Overweight/Obesity BMI> 30% ICD-10 E66: No Diagnosis High BMI/Morbid Obesity BMI> 35% ICD-10 Z68: No Outcomes/Goals: Pt sets, maintains & shows weight loss goal & trend during rehab, Other additional outcomes/goals Intervention/Plan: Instruct on ideal BMI & set weight loss goal w/patient, Assist pt to ID & incorporate diet changes for weight loss by S9, Refer to Structured Weight Loss program as appropriate, Encourage goal of using 250-300dcal per session for weight loss, Other additional plan/interventions 30 day Reassessments:: Progressing - pt has lost weight since seeing supervisor [employer] - Healthy Eating Habits Will attend diet classes:: Yes Outcomes/Goals:: Consume diet rich in vegs,fruits,whole grain/high fiber,fish,lean meat, Limit sat/trans fats,cholesterol & added salts & sugars, Other additional outcome/goals: Intervention/Plan:: Assess current eating habits, Other Additional plan/interventions 30-day Reassessments:: Progressing - pt has lost weight since seeing supervisor [employer] - Education Gave educational materials for:: Signs & symptoms of hypoglycemia, Signs & symptoms of hyperglycemia, Relate diabetes to coronary artery disease, Healthy eating Nutrition - 90-Day Assessment Nutrition - Final Assessment Core - Initial Assessment Core - 30-Day Assessment Core - 60-Day Assessment - Visit Date of Eval: 01/01/23 Session #:: 25 - Medication Compliance Preventative Medication(s):: Aspirin, Ticagrelor/P2Y12 inhibitor, Statin/lipid, Beta lindsey H/O mental health issues: depression, anxiety, or addiction?: No Doesn?t believe in the benefits of treatment?: No Believes medications are unnecessary or harmful?: No Has a concern about medication side effects?: No Expresses concern over the cost of medications?: No Outcomes/Goals: Verbalizes medications,desired effect & common side effects @ DC, Pt self-reports following medication regimen, Keeps card in wallet w/medications listed by DC, Other additional outcome/goals: Interventions/plans: Instruct on medication effects & side effects, Review medication list w/patient every two weeks, Instruct importance of taking meds as ordered & assist problem solving, Other additional 30-day Reassessments:: Progressing - encouraged to take meds - Tobacco Use Tobacco Use: Non-smoker - Hypertension Hypertension Diagnosis:: Hypertension ICD-10 I10 Resting Blood Pressure:: 126/78 [place] [employer] Hypertension Guidelines: [place] [employer] Hypertension Guidelines. Normal BP Less than 120/80. Elevated BP 120/80. Hypertension Stage 1: BP 130-139/80-89. Hypertesnion Stage 2: BP 140 or higher/90 or higher. Hypertension Crisis: BP higher than 180/120 Peak Exercise Blood Pressure:: 182/100 Outcomes/Goals: Able to verbalize/achieve optimal blood pressure <130/80, Incorporates diet changes & exercise for blood pressure control by DC, Other additional outcomes/goals Interventions/plan: Instruct on optimal blood pressure, hypertension & medications, Instruct on effects of sodium, alcohol, stress, exercise &hypertension, Other additional plan/interventions 30 day Reassessments:: Progressing - encouraged to take meds - Tobacco Cessation Referral Smoking Cessation Referral:: No Individual Education/Counseling:: No Education Schedule Given:: Yes Core - 90 Day Assessment Core - Final Assessment Psychosocial - Initial Assess Psychosocial - 30-Day Assess Psychosocial - 60-Day Assess - VIsit Date of Eval: 01/01/23 Session #:: 25 History of previous Mental disease:: No Psychosocial - 90-Day Assess Psychosocial - Final Assessmen Patient Health Questionnaire 60-Day Re-eval Assessment 1. Little interest or pleasure in doing things: Several days 2. Feeling down, depressed, or hopeless: Not at all 3. Trouble falling or staying asleep, or sleeping too much: More than half the days 4. Feeling tired or having little energy: Several days 5. Poor appetite or overeating: Not at all 6. Feeling bad about yourself -- or that you are a failure or have let yourself or your family down: Not at all 7. Trouble concentrating on things, such as reading the newspaper or watching television: Not at all 8. Moving or speaking so slowly that other people could have noticed. Or the opposite - being so fidgety or restless that you have been moving around a lot more than usual: Not at all 9. Thoughts that you would be better off , or of hurting yourself in some way: Not at all How difficult have these problems made it for you to do your work, take care of things at home, or get along with other people?: Not difficult at all Total Score: 4 Self-Efficacy 60-Day Re-eval Assessment We would like to know how confident you are in doing certain activities. Please select your confidence level for:: Select your confidence level for the following using the scale 1-10 where 1 is not at all confident and 10 is totally confident. Your score is the average of all 6 responses. Fatigue: How confident are you that you can keep the fatigue caused by your disease from interfering with the things you want to do? Select Number: 8 Physical Discomfort or Pain: How confident are you that you can keep the physical discomfort or pain of your disease from interfering with the things you want to do? Select Number: 8 Emotional Distress: How confident are you that you can keep the emotional distress caused by your disease from interfering with the things you want to do? Select Number: 8 Other Symptoms or Health Problems: How confident are you that you can keep other symptoms or health problems from interfering with the things you want to do? Select Number: 8 Different Tasks and Activities: How confident are you that you can do the different tasks and activities needed to manage your health condition so as to reduce your need to see a doctor? Select Number: 6 Medication: How confident are you that you can do things other than just taking medication to reduce how much your illness affects your everyday life? Select Number: 8 Total Score:: 7 Nutrition Survey
[2023-01-01 08:46] VITALS: BP 126/78; BP 182/100; BMI 29.8
== END 2023-01-10 23:59 ==
LOC: CR 11:30
PROVIDERS: PCP Family Medicine; Referring Provider Internal Medicine Cardiovascular Disease; Visit Provider Internal Medicine Cardiovascular Disease
DX: Z95.5 Presence of coronary angioplasty implant and graft (principal)
CPT/HCPCS: 93798; 97803

== ENCOUNTER → 2023-01-08 | Outpatient (CLI) | payer MEDICARE, SELFPAY ==
[2023-01-01 08:46] VITALS: BMI 29.8
[2023-01-08 11:14] LABS: Absolute Lymphocyte Count 0.95 X10^3/uL (0.83-4.51); Absolute Neutrophil Count 3.7 X10^3/uL (2.0-7.7); Basophil# 0.05 X10^3/uL; Basophil% 0.9 % (0-1); Eosinophils% 3.6 % (0-5); Hemoglobin 10.8 g/dL (12.0-15.0); Lymphocyte # 0.95 X10^3/ul (0.83-4.51); Lymphocyte % 17.3 % (19-41); Mean Corp Hgb Conc 32.7 g/dL (32-36); Mean Corpuscular Hgb 29.6 pg (27.0-32.0); Mean Corpuscular Volume 90.4 fL (81-99); Mean Platelet Vol. 11.3 fl (6.2-12.0); Monocyte% 10.9 % (0-10); NRBC Flagged by Analyzer 0 % (0-5); Neutrophil # 3.67 X10^3/uL (2.7-7.7); Neutrophil % 66.9 % (47-70); Platelet Count 294 K/mm3 (150-450); RBC Distribution Width CV 12.6 % (11.6-14.6); RBC Distribution Width SD 41.8 fl (35.1-43.9); Red Blood Count 3.65 M/mm3 (4.2-5.4); White Blood Count 5.5 K/mm3 (4.4-11.0)
[2023-01-08 11:49] LABS: Vitamin D,25 Hydroxy 90.3 ng/mL
[2023-01-08 11:53] LABS: Hemoglobin A1c 5.6 % (3.8-5.6)
[2023-01-08 11:59] LABS: AST(SGOT) 17 U/L (15-37); Alanine Aminotransfer ALT/SGPT 21 U/L (13-56); Albumin, Serum 3.9 g/dL (3.2-5.0); Alkaline Phosphatase 72 U/L (45-117); Anion Gap 1 (5-15); BUN 29 mg/dL (7-18); BUN/Creat Ratio 29.9 RATIO (10-20); Calcium,Total 9.3 mg/dL (8.5-10.1); Chloride 105 mmol/L (98-107); Cholesterol 157 mg/dL (200); Creatinine, Serum 0.97 mg/dL (0.55-1.02); EST Glomerular Filtration Rate 61 mL/min (>60); Est Glom Filt Rate - Afr Amer 74 mL/min (>60); Globulin 3.8 g/dL (2.2-4.2); Glucose 102 mg/dL (74-106); High Density Lipoprotein 50 mg/dL; Protein, Total 7.7 g/dL (6.4-8.2); Sodium Level 135 mmol/L (136-145); T4 Free Direct 1.55 ng/dL (0.76-1.46); Thyroid Stim Hormone (TSH) 0.66 uIU/mL (0.358-3.74); Triglycerides 131 mg/dL; Very Low Density Lipoprotein 26 mg/dL (5-40)
[2023-01-11 12:40] LABS: Vitamin B12 283 pg/mL (211-911)
[2023-01-11 12:50] LABS: Ferritin 65 ng/mL (8-252); Iron 54 ug/dL (50-170); Iron Binding Capacity,Total 354 ug/dL (250-450)
[2023-01-12 05:07] LABS: Transferrin 301 mg/dL (192-364)
== END | disposition home or self-care (01) ==
LOC: LAB 10:03
PROVIDERS: PCP Family Medicine; Referring Provider Family Medicine; Visit Provider Family Medicine
DX: D64.9 Anemia, unspecified (principal); M85.80 Other specified disorders of bone density and structure, unspecified site; I25.10 Atherosclerotic heart disease of native coronary artery without angina pectoris; R73.09 Other abnormal glucose
CPT/HCPCS: 36415; 80053; 80061; 82306; 82607; 82728; 83036; 83540; 83550; 84439; 84443; 84466; 85025

== ENCOUNTER 2023-01-29 11:30 | Outpatient (RCR) | payer MEDICARE, SELFPAY ==
[2023-01-01 08:46] VITALS: BMI 29.8
[2023-01-11 00:41] VITALS: BP 126/78; BP 182/100
== END 2023-02-10 23:59 ==
LOC: CR 11:30
PROVIDERS: PCP Family Medicine; Referring Provider Internal Medicine Cardiovascular Disease; Visit Provider Internal Medicine Cardiovascular Disease
DX: Z95.5 Presence of coronary angioplasty implant and graft (principal)
CPT/HCPCS: 93798

== ENCOUNTER → 2023-03-09 | Outpatient (CLI) | payer MEDICARE, SELFPAY ==
[2023-01-01 08:46] VITALS: BMI 29.8
[2023-03-09 10:21] LABS: Absolute Lymphocyte Count 0.95 X10^3/uL (0.83-4.51); Absolute Neutrophil Count 3.6 X10^3/uL (2.0-7.7); Basophil# 0.04 X10^3/uL; Basophil% 0.8 % (0-1); Eosinophil# 0.16 X10^3/uL; Hematocrit 30.6 % (37-47); Hemoglobin 10.2 g/dL (12.0-15.0); Lymphocyte # 0.95 X10^3/ul (0.83-4.51); Lymphocyte % 17.9 % (19-41); Mean Corp Hgb Conc 33.3 g/dL (32-36); Mean Corpuscular Hgb 29.4 pg (27.0-32.0); Mean Corpuscular Volume 88.2 fL (81-99); Mean Platelet Vol. 11.2 fl (6.2-12.0); Monocyte# 0.54 X10^3/uL; Monocyte% 10.2 % (0-10); NRBC Flagged by Analyzer 0 % (0-5); Neutrophil # 3.61 X10^3/uL (2.7-7.7); Neutrophil % 67.7 % (47-70); Platelet Count 261 K/mm3 (150-450); RBC Distribution Width CV 13.3 % (11.6-14.6); Red Blood Count 3.47 M/mm3 (4.2-5.4); White Blood Count 5.3 K/mm3 (4.4-11.0)
[2023-03-09 11:01] LABS: ALB/GLOB Ratio 1.1 RATIO (0.9-2.4); AST(SGOT) 19 U/L (15-37); Alanine Aminotransfer ALT/SGPT 23 U/L (13-56); Albumin, Serum 3.7 g/dL (3.2-5.0); Alkaline Phosphatase 57 U/L (45-117); Anion Gap 7 (5-15); BUN 28 mg/dL (7-18); BUN/Creat Ratio 28.5 RATIO (10-20); Calcium,Total 8.9 mg/dL (8.5-10.1); Chloride 105 mmol/L (98-107); Cholesterol 125 mg/dL (200); Creatinine, Serum 0.98 mg/dL (0.55-1.02); EST Glomerular Filtration Rate 60 mL/min (>60); Est Glom Filt Rate - Afr Amer 72 mL/min (>60); Globulin 3.3 g/dL (2.2-4.2); Glucose 98 mg/dL (74-106); High Density Lipoprotein 47 mg/dL; Sodium Level 136 mmol/L (136-145); T4 Free Direct 1.28 ng/dL (0.76-1.46); Triglycerides 108 mg/dL; Very Low Density Lipoprotein 22 mg/dL (5-40)
== END | disposition home or self-care (01) ==
LOC: MFPLAB 08:34
PROVIDERS: PCP Family Medicine; Visit Provider Family Medicine
DX: I25.10 Atherosclerotic heart disease of native coronary artery without angina pectoris (principal); E03.8 Other specified hypothyroidism
CPT/HCPCS: 36415; 80053; 80061; 84439; 84443; 85025

== ENCOUNTER → 2023-03-26 | Outpatient (CLI) | payer MEDICARE, SELFPAY ==
[2023-01-01 08:46] VITALS: BMI 29.8
--- NOTE | 2023-03-26 13:39 | BI_ITS ---
MAMMOGRAPHY - BILATERAL SCREENING REASON FOR EXAM: Female, 67 years old. Routine annual screening examination. PERTINENT HISTORY: Mother with breast cancer. TECHNIQUE: Digital bilateral breast beka (3D mammographic acquisition) in the CC and MLO projections. 2-D mediolateral oblique (MLO) and craniocaudad (CC) views of both breasts were obtained. CAD: Full Field Digital Mammography with Computer Added Detection was performed. COMPARISON: Comparison is made with prior study dated February 03, 2022 and October 31, 2019. FINDINGS: Breast Composition: There are scattered areas of fibroglandular density. There are no dominant masses or suspicious calcifications. Stable benign-appearing bilateral axillary nodes. No other significant abnormalities are identified. There has been no significant change since the prior study. BI/SCRN MAMM (CAD)W/BEKA BILAT IMPRESSION: Stable bilateral screening mammogram. Yearly follow-up mammogram recommended. (A) ASSESSMENT CATEGORY: BIRADS Category 2: Benign. A letter regarding these results will be sent to the patient by the facility within 30 days. Approximately 10% of breast cancers are not detected by mammography. A normal mammogram should not delay biopsy of a clinically suspicious abnormality. [id number] Electronically Signed: Jun Witt MD at 15:02 EDT ,
== END | disposition home or self-care (01) ==
LOC: OPBI 13:38
PROVIDERS: PCP Family Medicine; Referring Provider Family Medicine; Visit Provider Family Medicine
DX: Z12.31 Encounter for screening mammogram for malignant neoplasm of breast (principal)
CPT/HCPCS: 77063; 77067

== ENCOUNTER → 2023-05-28 | Outpatient (CLI) | payer MEDICARE, SELFPAY ==
[2023-01-01 08:46] VITALS: BMI 29.8
[2023-05-28 10:58] LABS: Ferritin 60 ng/mL (8-252); Iron 50 ug/dL (50-170); Iron Binding Capacity,Total 331 ug/dL (250-450)
[2023-05-28 11:00] LABS: Vitamin B12 340 pg/mL (211-911)
[2023-05-28 11:04] LABS: AST(SGOT) 15 U/L (15-37); Alanine Aminotransfer ALT/SGPT 19 U/L (13-56); CPK Total, Creatine Kinase 102 U/L (26-192); Cholesterol 138 mg/dL (200); Free T3 3.1 pg/mL (2.18-3.98); High Density Lipoprotein 49 mg/dL; T4 Free Direct 1.43 ng/dL (0.76-1.46); Thyroid Stim Hormone (TSH) 0.51 uIU/mL (0.358-3.74); Triglycerides 134 mg/dL; Very Low Density Lipoprotein 27 mg/dL (5-40)
[2023-05-29 09:08] LABS: Transferrin 267 mg/dL (192-364)
== END | disposition home or self-care (01) ==
LOC: LAB 09:41
PROVIDERS: Internal Medicine Cardiovascular Disease; PCP Family Medicine
DX: E04.1 Nontoxic single thyroid nodule (principal); D64.9 Anemia, unspecified; E78.5 Hyperlipidemia, unspecified; I25.10 Atherosclerotic heart disease of native coronary artery without angina pectoris; Z95.5 Presence of coronary angioplasty implant and graft
CPT/HCPCS: 80061; 82550; 82607; 82728; 83540; 83550; 84439; 84443; 84450; 84460; 84466; 84481

== ENCOUNTER → 2023-08-04 | Outpatient (CLI) | payer MEDICARE, SELFPAY ==
[2023-01-01 08:46] VITALS: BMI 29.8
[2023-08-04 11:37] LABS: Thyroid Stim Hormone (TSH) 3.93 uIU/mL (0.358-3.74)
== END | disposition home or self-care (01) ==
LOC: LAB 10:26
PROVIDERS: PCP Family Medicine
DX: E04.1 Nontoxic single thyroid nodule (principal)
CPT/HCPCS: 36415; 84443

== ENCOUNTER → 2023-08-12 | Outpatient (CLI) | payer MEDICARE, SELFPAY ==
[2023-01-01 08:46] VITALS: BMI 29.8
[2023-08-12 10:17] LABS: Absolute Lymphocyte Count 0.72 X10^3/uL (0.83-4.51); Absolute Neutrophil Count 4.7 X10^3/uL (2.0-7.7); Basophil# 0.04 X10^3/uL; Basophil% 0.6 % (0-1); Eosinophil# 0.16 X10^3/uL; Eosinophils% 2.6 % (0-5); Hematocrit 31.4 % (37-47); Hemoglobin 10.2 g/dL (12.0-15.0); Lymphocyte # 0.72 X10^3/ul (0.83-4.51); Lymphocyte % 11.7 % (19-41); Mean Corp Hgb Conc 32.5 g/dL (32-36); Mean Corpuscular Hgb 29.1 pg (27.0-32.0); Mean Corpuscular Volume 89.7 fL (81-99); Mean Platelet Vol. 11.2 fl (6.2-12.0); Monocyte# 0.52 X10^3/uL; Monocyte% 8.4 % (0-10); NRBC Flagged by Analyzer 0 % (0-5); Neutrophil # 4.71 X10^3/uL (2.7-7.7); Neutrophil % 76.4 % (47-70); Platelet Count 274 K/mm3 (150-450); RBC Distribution Width CV 13.2 % (11.6-14.6); RBC Distribution Width SD 43.7 fl (35.1-43.9); White Blood Count 6.2 K/mm3 (4.4-11.0)
[2023-08-12 11:03] LABS: Vitamin B12 226 pg/mL (211-911); Vitamin D,25 Hydroxy 31.8 ng/mL
[2023-08-12 11:06] LABS: ALB/GLOB Ratio 1.1 RATIO (0.9-2.4); AST(SGOT) 15 U/L (15-37); Alanine Aminotransfer ALT/SGPT 19 U/L (13-56); Albumin, Serum 3.7 g/dL (3.2-5.0); Alkaline Phosphatase 65 U/L (45-117); Anion Gap 8 (5-15); BUN 30 mg/dL (7-18); BUN/Creat Ratio 29.4 RATIO (10-20); Calcium,Total 8.8 mg/dL (8.5-10.1); Chloride 105 mmol/L (98-107); Cholesterol 142 mg/dL (200); Creatinine, Serum 1.02 mg/dL (0.55-1.02); EST Glomerular Filtration Rate 57 mL/min (>60); Est Glom Filt Rate - Afr Amer 69 mL/min (>60); Ferritin 38 ng/mL (8-252); Globulin 3.5 g/dL (2.2-4.2); Glucose 112 mg/dL (74-106); High Density Lipoprotein 55 mg/dL; Iron 60 ug/dL (50-170); Iron Binding Capacity,Total 359 ug/dL (250-450); Potassium 3.8 mmol/L (3.5-5.1); Protein, Total 7.2 g/dL (6.4-8.2); Sodium Level 139 mmol/L (136-145); T4 Free Direct 1.08 ng/dL (0.76-1.46); Triglycerides 114 mg/dL; Very Low Density Lipoprotein 23 mg/dL (5-40)
== END | disposition home or self-care (01) ==
LOC: MFPLAB 08:50
PROVIDERS: PCP Family Medicine; Visit Provider Family Medicine
DX: I25.10 Atherosclerotic heart disease of native coronary artery without angina pectoris (principal); E03.8 Other specified hypothyroidism; D64.9 Anemia, unspecified; E55.9 Vitamin D deficiency, unspecified
CPT/HCPCS: 36415; 80053; 80061; 82306; 82607; 82728; 82746; 83540; 83550; 83735; 84439; 85025

== ENCOUNTER → 2023-12-16 | Outpatient (CLI) | payer MEDICARE, SELFPAY ==
[2023-01-01 08:46] VITALS: BMI 29.8
[2023-12-16 12:10] LABS: Absolute Neutrophil Count 3.7 X10^3/uL (2.0-7.7); Basophil# 0.05 X10^3/uL; Basophil% 0.9 % (0-1); Eosinophil# 0.13 X10^3/uL; Eosinophils% 2.4 % (0-5); Hematocrit 31.7 % (37-47); Hemoglobin 10.1 g/dL (12.0-15.0); Lymphocyte % 16.8 % (19-41); Mean Corp Hgb Conc 31.9 g/dL (32-36); Mean Corpuscular Volume 87.8 fL (81-99); Mean Platelet Vol. 10.8 fl (6.2-12.0); Monocyte# 0.53 X10^3/uL; Monocyte% 9.9 % (0-10); NRBC Flagged by Analyzer 0 % (0-5); Neutrophil # 3.73 X10^3/uL (2.7-7.7); Neutrophil % 69.6 % (47-70); Platelet Count 333 K/mm3 (150-450); RBC Distribution Width SD 41.4 fl (35.1-43.9); Red Blood Count 3.61 M/mm3 (4.2-5.4); White Blood Count 5.4 K/mm3 (4.4-11.0)
[2023-12-16 12:39] LABS: Vitamin D,25 Hydroxy 43.6 ng/mL
[2023-12-16 12:46] LABS: AST(SGOT) 23 U/L (15-37); Alanine Aminotransfer ALT/SGPT 24 U/L (13-56); Albumin, Serum 3.8 g/dL (3.2-5.0); Alkaline Phosphatase 76 U/L (45-117); Bilirubin, Direct 0.15 mg/dL (0.00-0.30); Globulin 3.3 g/dL (2.2-4.2); Protein, Total 7.1 g/dL (6.4-8.2)
[2023-12-16 12:50] LABS: ALB/GLOB Ratio 1.1 RATIO (0.9-2.4); AST(SGOT) 21 U/L (15-37); Alanine Aminotransfer ALT/SGPT 24 U/L (13-56); Albumin, Serum 3.8 g/dL (3.2-5.0); Alkaline Phosphatase 74 U/L (45-117); Anion Gap 4 (5-15); BUN 23 mg/dL (7-18); BUN/Creat Ratio 22.3 RATIO (10-20); Calcium,Total 8.7 mg/dL (8.5-10.1); Chloride 105 mmol/L (98-107); Cholesterol 130 mg/dL (200); Creatinine, Serum 1.03 mg/dL (0.55-1.02); EST Glomerular Filtration Rate 56 mL/min (>60); Est Glom Filt Rate - Afr Amer 68 mL/min (>60); Globulin 3.5 g/dL (2.2-4.2); Glucose 102 mg/dL (74-106); High Density Lipoprotein 58 mg/dL; Potassium 4.2 mmol/L (3.5-5.1); Protein, Total 7.3 g/dL (6.4-8.2); Sodium Level 137 mmol/L (136-145); T4 Free Direct 1.46 ng/dL (0.76-1.46); Triglycerides 106 mg/dL; Very Low Density Lipoprotein 21 mg/dL (5-40)
== END | disposition home or self-care (01) ==
LOC: MFPLAB 10:56
PROVIDERS: Nurse Practitioner Gerontology; PCP Family Medicine; Visit Provider Family Medicine
DX: I25.10 Atherosclerotic heart disease of native coronary artery without angina pectoris (principal); E55.9 Vitamin D deficiency, unspecified; E78.00 Pure hypercholesterolemia, unspecified; E03.8 Other specified hypothyroidism
CPT/HCPCS: 36415; 80053; 80061; 80076; 82306; 84439; 84443; 85025

== ENCOUNTER → 2024-01-14 | Outpatient (CLI) | payer MEDICARE, SELFPAY ==
[2023-01-01 08:46] VITALS: BMI 29.8
--- NOTE | 2024-01-14 10:43 | ECHOCS_ITS ---
Reason For Study: ASHD/CAD Procedure This was a 2D Doppler, Color Flow transthoracic echocardiogram. Contrast injection was performed. Exam performed in department. Left Ventricle Mild concentric left ventricular hypertrophy. Normal LV size. The left ventricular ejection fraction is 65 %. Normal diastology for age. Right Ventricle Normal right ventricle. Atria The left and right atria are normal. Mitral Valve Trivial mitral valve insufficiency. Tricuspid Valve Trivial tricuspid valve insufficiency. Normal pulmonary artery pressure. Aortic Valve Trisinus/trileaflet aortic valve. Mild (1+) aortic valve insufficiency. Pulmonic Valve The pulmonic valve is not well visualized. Great Vessels Normal sized aortic root. Pericardium/Pleural Small pericardial effusion. Medication 22 gauge I.V. with prn adaptor inserted into left arm. Diluted definity 2ml given slow IV push to enhance endocardial definition. MMode/2D Measurements & Calculations LVIDd: 4.9 cm IVSd: 0.85 cm Ao root diam: 3.0 cm LVIDs: 3.4 cm LVPWd: 0.76 cm LA dimension: 4.4 cm RVDd: 3.3 cm FS: 31.4 % LAV(MOD-bp): 35.7 ml LVAd ap4: 26.2 cm2 SV(MOD-sp4): 57.0 ml LAV(MOD-bp) Indexed: 20.8 ml/m2 LVLd ap4: 6.9 cm LAV(MOD-sp2): 30.5 ml EDV(MOD-sp4): 81.9 ml LAV(MOD-sp4): 36.1 ml EDV(sp4-el): 85.0 ml LVAs ap4: 12.4 cm2 LVLs ap4: 5.4 cm ESV(MOD-sp4): 25.0 ml ESV(sp4-el): 24.3 ml EF(MOD-sp4): 69.5 % EF(sp4-el): 71.4 % SV(sp4-el): 60.8 ml LA A4 area: 14.9 cm2 RA A4 area: 15.0 cm2 Time Measurements MV dec time: 0.30 sec Doppler Measurements & Calculations MV E max rashi: 62.0 cm/sec Lat Peak E' Rashi: 3.7 cm/sec Med Peak E' Rashi: 6.3 cm/sec MV A max rashi: 83.6 cm/sec E/E' lat: 16.9 E/E' med: 9.9 MV E/A: 0.74 MV V2 max: 97.9 cm/sec MV P1/2t max rashi: 88.8 cm/sec Ao V2 max: 164.5 cm/sec MV max P.8 mmHg MV P1/2t: 90.2 msec Ao max P.9 mmHg MV V2 mean: 46.7 cm/sec Ao V2 mean: 99.6 cm/sec MV mean P.1 mmHg MV dec slope: 288.3 cm/sec2 Ao mean P.6 mmHg MV V2 VTI: 24.0 cm MVA(P1/2t): 2.4 cm2 Ao V2 VTI: 32.0 cm AV (velocity ratio): 0.94 LV V1 max: 139.8 cm/sec PA V2 max: 98.3 cm/sec TR max rashi: 253.4 cm/sec LV V1 max P.8 mmHg PA V2 mean: 70.3 cm/sec TR max P.7 mmHg LV V1 mean P.3 mmHg LV V1 mean: 97.5 cm/sec LV V1 VTI: 30.0 cm ECHO/Echo Complete W/ Contrast Interpretation Summary The left ventricular ejection fraction is 65 %. Mild concentric left ventricular hypertrophy. Mild (1+) aortic valve insufficiency. Small localized posterior pericardial effusion. Anteriorly thickened pericardium. Recommend cardiac MRI for further evaluation. Ordering Physician: Parvin Rooney Referring Physician: Parvin Rooney Performed By: Roshan Sorensen [facility]
== END | disposition home or self-care (01) ==
PROVIDERS: PCP Family Medicine; Referring Provider Internal Medicine Cardiovascular Disease; Visit Provider Internal Medicine Cardiovascular Disease
DX: I25.10 Atherosclerotic heart disease of native coronary artery without angina pectoris (principal)
CPT/HCPCS: 93306; Q9957; A4216; C8929

== ENCOUNTER → 2024-04-13 | Outpatient (CLI) | payer MEDICARE, SELFPAY ==
[2023-01-01 08:46] VITALS: BMI 29.8
[2024-04-13 10:19] LABS: Absolute Lymphocyte Count 0.81 X10^3/uL (0.83-4.51); Absolute Neutrophil Count 3.6 X10^3/uL (2.0-7.7); Basophil# 0.05 X10^3/uL; Eosinophil# 0.13 X10^3/uL; Eosinophils% 2.5 % (0-5); Hematocrit 29.9 % (37-47); Hemoglobin 9.6 g/dL (12.0-15.0); Lymphocyte # 0.81 X10^3/ul (0.83-4.51); Lymphocyte % 15.8 % (19-41); Mean Corp Hgb Conc 32.1 g/dL (32-36); Mean Corpuscular Hgb 27.8 pg (27.0-32.0); Mean Corpuscular Volume 86.7 fL (81-99); Mean Platelet Vol. 10.8 fl (6.2-12.0); Monocyte% 9.7 % (0-10); NRBC Flagged by Analyzer 0 % (0-5); Neutrophil # 3.63 X10^3/uL (2.7-7.7); Neutrophil % 70.6 % (47-70); Platelet Count 295 K/mm3 (150-450); RBC Distribution Width CV 13.1 % (11.6-14.6); RBC Distribution Width SD 40.9 fl (35.1-43.9); Red Blood Count 3.45 M/mm3 (4.2-5.4); White Blood Count 5.1 K/mm3 (4.4-11.0)
[2024-04-13 10:27] LABS: Vitamin B12 311 pg/mL (211-911)
[2024-04-13 10:44] LABS: ALB/GLOB Ratio 1.1 RATIO (0.9-2.4); AST(SGOT) 18 U/L (15-37); Alanine Aminotransfer ALT/SGPT 19 U/L (13-56); Albumin, Serum 3.6 g/dL (3.2-5.0); Alkaline Phosphatase 65 U/L (45-117); Anion Gap 5 (5-15); BUN 27 mg/dL (7-18); BUN/Creat Ratio 26.7 RATIO (10-20); Calcium,Total 8.8 mg/dL (8.5-10.1); Chloride 108 mmol/L (98-107); Cholesterol 127 mg/dL (200); Creatinine, Serum 1.01 mg/dL (0.55-1.02); EST Glomerular Filtration Rate 58 mL/min (>60); Est Glom Filt Rate - Afr Amer 70 mL/min (>60); Ferritin 26 ng/mL (8-252); Globulin 3.4 g/dL (2.2-4.2); Glucose 97 mg/dL (74-106); High Density Lipoprotein 50 mg/dL; Iron 64 ug/dL (50-170); Iron Binding Capacity,Total 354 ug/dL (250-450); Phosphorus 3.7 mg/dL (2.5-4.9); Potassium 4.2 mmol/L (3.5-5.1); Sodium Level 138 mmol/L (136-145); T4 Free Direct 1.18 ng/dL (0.76-1.46); Thyroid Stim Hormone (TSH) 0.26 uIU/mL (0.358-3.74); Triglycerides 109 mg/dL; Very Low Density Lipoprotein 22 mg/dL (5-40)
[2024-04-13 10:57] LABS: PTHIN 58.6 pg/mL (18.4-80.1)
[2024-04-13 15:39] LABS: Mucous, Urine 0 SEEN /hpf (<or=2+); Red Blood Cells-Urine 0 SEEN /hpf (0-5)
[2024-04-13 18:09] LABS: Color, Urine Yellow (Yellow); Glucose, Dipstick Normal (Normal); Ketone-Dipstick Negative (Negative); Leukocyte Esterase-Dipstick 25 /ul (Negative); Nitrite-Dipstick Negative (Negative); Occult Blood-Urine Negative /ul (Negative); Protein-Dipstick Negative (Negative); Specific Gravity, Urine 1.015 (1.002-1.030); Urine Bilirubin Dipstick Negative (Negative); Urine Clarity Sl. Cloudy (Clear); Urine Urobilinogen Normal (Normal); Urine pH 6.5 (5.0 - 8.0)
[2024-04-13 18:12] LABS: Protein, Urine (Random) 13.3 mg/dL (<11.9); Protein:Creat Ratio 119 mg/g CRE (0-200)
[2024-04-13 18:34] LABS: Bacteria 2+ /hpf (None Seen); Squamous Epithelial Cells - UA 0-5 SEEN /hpf (5-10); White Blood Cells 0-5 SEEN /hpf (0-5)
== END | disposition home or self-care (01) ==
LOC: MFPLAB 09:11
PROVIDERS: PCP Family Medicine; Visit Provider Family Medicine
DX: Z12.31 Encounter for screening mammogram for malignant neoplasm of breast (principal); N18.30 Chronic kidney disease, stage 3 unspecified; D64.9 Anemia, unspecified; E03.8 Other specified hypothyroidism; E78.5 Hyperlipidemia, unspecified
CPT/HCPCS: 36415; 77063; 77067; 80053; 80061; 81001; 82306; 82570; 82607; 82728; 82746; 83540; 83550; 83970; 84100; 84156; 84439; 84443; 85025

== ENCOUNTER → 2024-04-13 | Outpatient (CLI) | payer MEDICARE, SELFPAY ==
[2023-01-01 08:46] VITALS: BMI 29.8
--- NOTE | 2024-04-13 13:18 | BI_ITS ---
MAMMOGRAPHY - BILATERAL SCREENING REASON FOR EXAM: Female, 68 years old. Routine annual screening examination. PERTINENT HISTORY: Mother with breast cancer. TECHNIQUE: Digital bilateral breast beka (3D mammographic acquisition) in the CC and MLO projections. 2-D mediolateral oblique (MLO) and craniocaudad (CC) views of both breasts were obtained. CAD: Full Field Digital Mammography with Computer Added Detection was performed. COMPARISON: Comparison is made with prior study March 26, 2023 and February 03, 2022. FINDINGS: Breast Composition: There are scattered areas of fibroglandular density. There are no dominant masses or suspicious calcifications. No other significant abnormalities are identified. There has been no significant change since the prior study. BI/SCRN MAMM (CAD)W/BEKA BILAT IMPRESSION: Stable bilateral screening mammogram. Yearly follow-up mammogram recommended. (A) ASSESSMENT CATEGORY: BIRADS Category 1: Negative. A letter regarding these results will be sent to the patient by the facility within 30 days. Approximately 10% of breast cancers are not detected by mammography. A normal mammogram should not delay biopsy of a clinically suspicious abnormality. [id number] Electronically Signed: Jun Witt MD at 14:14 EDT ,
== END | disposition home or self-care (01) ==
LOC: OPBI 13:18
PROVIDERS: PCP Family Medicine; Referring Provider Family Medicine; Visit Provider Family Medicine
DX: Z12.31 Encounter for screening mammogram for malignant neoplasm of breast (principal)
CPT/HCPCS: 77063; 77067

== ENCOUNTER → 2024-09-08 | Outpatient (CLI) | payer MEDICARE, SELFPAY ==
[2023-01-01 08:46] VITALS: BMI 29.8
--- NOTE | 2024-09-08 11:18 | BD_ITS ---
STUDY: DUAL ENERGY X-RAY ABSORPTIOMETRY / DXA REASON FOR EXAM: Female, 69 years old. 733.90OsteopeniaBONE DENSITY REASON FOR EXAM TECHNIQUE: Bone Mineral Density (BMD) measurements of lumbar spine and bilateral hips were obtained. COMPARISON: 02/03/2022 FINDINGS: Lumbar Spine (L1-L4): g/cm2 (1.0-3) / T-score (-0.2) / Z-score (1.9) Findings are suggestive of normal bone density with a low fracture risk. Left Femur Total: g/cm2 (0.873) / T-score (-0.6) / Z-score (0.9) Left Femoral Neck: g/cm2 (0.704) / T-score (-1.3) / Z-score (0.5) Right Femur Total: g/cm2 (0.931) / T-score (-0.1) / Z-score (1.4) Right Femoral Neck: g/cm2 (0.717) / T-score (-1.2) / Z-score (0.6) BD/Dexa Bone Density Study IMPRESSION: The patient is considered osteopenic as outlined below according to World Steve Organization (WHO) criteria with a moderate fracture risk. There has been improvement of bone density since the previous examination. Reference Information: The T-score is the number of standard deviations above or below the standard which is normal for young adults at their peak bone mineral density. The World Health Organization (WHO) interprets the T-scores as follows: Above -1 Normal bone density Between -1 and -2.5 Osteopenia Equal to / or below -2.5 Osteoporosis As a practical clinical guideline, osteopenia may be graded as follows: Mild -1 through -1.5 Moderate -1.6 through -2.0 Severe -2.1 through -2.4 The Z-score is the number of standard deviations above or below age-matched controls. A Z-score of less than -1.5 would be considered abnormal. References: 1. NIH Osteoporosis and Related Bone Diseases www osteo.org 2. International Society for Clinical Densitometry www iscd.org 3. National Osteoporosis Foundation www nof.org Electronically Signed: Ja Jose MD at 8:43 EST ,
== END | disposition home or self-care (01) ==
LOC: OPBD 11:16
PROVIDERS: PCP Family Medicine; Referring Provider Family Medicine; Visit Provider Family Medicine
DX: M81.0 Age-related osteoporosis without current pathological fracture (principal); M85.80 Other specified disorders of bone density and structure, unspecified site
CPT/HCPCS: 77080

== ENCOUNTER → 2024-12-08 | Outpatient (CLI) | payer MEDICARE, SELFPAY ==
[2023-01-01 08:46] VITALS: BMI 29.8
[2024-12-08 10:47] LABS: Absolute Neutrophil Count 3.8 X10^3/uL (2.0-7.7); Basophil# 0.05 X10^3/uL; Basophil% 0.9 % (0-1); Eosinophil# 0.19 X10^3/uL; Eosinophils% 3.4 % (0-5); Hematocrit 32.4 % (37-47); Hemoglobin 10.5 g/dL (12.0-15.0); Lymphocyte % 17.7 % (19-41); Mean Corp Hgb Conc 32.4 g/dL (32-36); Mean Corpuscular Hgb 29.2 pg (27.0-32.0); Monocyte# 0.59 X10^3/uL; Monocyte% 10.4 % (0-10); NRBC Flagged by Analyzer 0 % (0-5); Neutrophil % 67.2 % (47-70); Platelet Count 268 K/mm3 (150-450); RBC Distribution Width CV 13.8 % (11.6-14.6); RBC Distribution Width SD 45.1 fl (35.1-43.9); White Blood Count 5.7 K/mm3 (4.4-11.0)
[2024-12-08 11:45] LABS: ALB/GLOB Ratio 1.7 RATIO (0.9-2.4); AST(SGOT) 26 U/L (<=31); Alanine Aminotransfer ALT/SGPT 20 U/L (<=34); Albumin, Serum 4.4 g/dL (3.4-4.8); Alkaline Phosphatase 61 U/L (35-104); Anion Gap 13 (5-15); BUN 23 mg/dL (4-19); Calcium,Total 9.4 mg/dL (7.6-11.0); Carbon Dioxide 21.7 mmol/L (21.0-32.0); Chloride 101 mmol/L (98-108); EST Glomerular Filtration Rate 61 (>60); Globulin 2.6 g/dL (2.2-4.2); Glucose 96 mg/dL (70-99); Potassium 4.1 mmol/L (3.3-5.1); Sodium Level 135 mmol/L (133-145); Total Bilirubin 0.34 mg/dL (0.00-1.30)
[2024-12-08 12:11] LABS: Cholesterol 129 mg/dL (<=200); High Density Lipoprotein 56 mg/dL; Low Density Lipoprotein Calc. 45 mg/dL; Triglycerides 140 mg/dL; Very Low Density Lipoprotein 28 mg/dL (5-40); cholesterol:hdl ratio screen 2.32
[2024-12-08 13:29] LABS: Vitamin D,25 Hydroxy 27.7 ng/mL (30-100)
== END | disposition home or self-care (01) ==
LOC: MTLAB 07:49
PROVIDERS: PCP Family Medicine; Referring Provider Family Medicine; Visit Provider Family Medicine
DX: E78.5 Hyperlipidemia, unspecified (principal); N18.30 Chronic kidney disease, stage 3 unspecified; E03.8 Other specified hypothyroidism
CPT/HCPCS: 36415; 80053; 80061; 82306; 84439; 84443; 85025

== ENCOUNTER → 2024-12-28 | Outpatient (CLI) | payer MEDICARE, SELFPAY ==
[2023-01-01 08:46] VITALS: BMI 29.8
--- NOTE | 2024-12-28 07:13 | ECHOD_ITS ---
Reason For Study Reason For Study: OTHER Procedure This was a 2D Doppler, Color Flow transthoracic echocardiogram. Exam performed in department. Left Ventricle Normal LV size. Mild concentric left ventricular hypertrophy. The left ventricular ejection fraction is 70 %. Stage 1 diastolic dysfunction. Right Ventricle Normal right ventricle. Atria The left atrium is mildly enlarged. Normal right atrium. Mitral Valve Mild (1+) mitral valve insufficiency. Tricuspid Valve Mild tricuspid valve insufficiency. Normal pulmonary artery pressure. Aortic Valve Trisinus/trileaflet aortic valve. Mild (1+) aortic valve insufficiency. Pulmonic Valve The pulmonic valve is not well visualized. Great Vessels The aortic root is not well visualized. Pericardium/Pleural Trivial pericardial effusion. MMode/2D Measurements & Calculations LVIDd: 5.3 cm IVSd: 1.3 cm LAV(MOD- bp): 27.2 ml LVIDs: 3.5 cm LVPWd: 1.00 cm LAV(MOD- bp) Indexed: 16.0 ml/m2 FS: 32.9 % LAV(MOD- sp2): 24.6 ml LAV(MOD- sp4): 30.1 ml SV(MOD-sp4): 33.6 ml SV(sp4- el): 34.7 ml LVAd ap4: 18.9 cm2 LVLd ap4: 6.6 cm SI(MOD-sp4): 19.7 ml/m2 EDV(MOD-sp4): 46.0 ml EDV(sp4-el): 45.8 ml LVAs ap4: 8.4 cm2 LVLs ap4: 5.4 cm ESV(MOD-sp4): 12.4 ml ESV(sp4-el): 11.1 ml EF(MOD-sp4): 73.0 % EF(sp4-el): 75.9 % LA A4 area: 13.1 cm2 LA dimension(2D): 3.8 cm RA A4 area: 7.7 cm2 Time Measurements MV dec time: 0.23 sec Doppler Measurements & Calculations MV E max rashi: 60.3 cm/sec Lat Peak E' Rashi: 4.8 cm/sec Med Peak E' Rashi: 7.1 cm/sec MV A max rashi: 94.4 cm/sec E/E' lat: 12.6 E/E' med: 8.5 MV E/A: 0.64 MV V2 max: 125.7 cm/sec MV dec slope: 259.5 cm/sec2 Ao V2 max: 152.6 cm/sec MV max P.3 mmHg Ao max P.3 mmHg MV V2 mean: 64.1 cm/sec Ao V2 mean: 92.7 cm/sec MV mean P.1 mmHg Ao mean P.2 mmHg MV V2 VTI: 41.5 cm Ao V2 VTI: 36.8 cm AV (velocity ratio): 0.91 LV V1 max: 138.7 cm/sec PA V2 max: 110.0 cm/sec TR max rashi: 262.7 cm/sec LV V1 max P.7 mmHg PA V2 mean: 71.8 cm/sec TR max P.6 mmHg LV V1 mean P.9 mmHg LV V1 mean: 91.7 cm/sec LV V1 VTI: 33.6 cm ECHO/Echo Complete Interpretation Summary The left ventricular ejection fraction is 70 %. Mild concentric left ventricular hypertrophy. Stage 1 diastolic dysfunction. The left atrium is mildly enlarged. Mild (1+) mitral valve insufficiency. Mild tricuspid valve insufficiency. Mild (1+) aortic valve insufficiency. Ordering Physician: Parvin Rooney Referring Physician: Parvin Rooney Performed By: Katherine Duong RCS
--- NOTE | 2025-01-01 10:22 | STRESSREP_ITS ---
Stress Test Report Date: 12/28/2024 Procedure: Exercise tolerance test/imaging study Indications: Coronary artery disease Consent: Per the patient Procedure: The patient exercised on a James protocol for 5 minutes achieving a peak heart rate of 136 bpm (90% predicted maximal heart rate) with a peak blood pressure 150/78 mmHg and a peak MET capacity of 7.0 METs. The baseline ECG demonstrated sinus rhythm with nonspecific T wave changes. The peak exercise ECG showed no diagnostic ischemic changes. Rare PVC noted. The functional capacity was considered good for age. There was no complaint of chest discomfort during exercise or recovery. The examination was discontinued secondary to target heart rate being achieved and dyspnea. The patient was injected with 12.0 mCi of technetium 99m Cardiolite and subsequently rest SPECT Cardiolite nuclear imaging was obtained in the horizontal long, vertical long, and short axis views. Post-exercise, the patient was injected with 34.8 mCi of technetium 99m Cardiolite and subsequently stress SPECT Cardiolite nuclear imaging was obtained in the horizontal long, vertical long, and short axis views. A gated Cardiolite study at peak stress was obtained. Rest and stress SPECT Cardiolite nuclear imaging status post realignment, normalization, and attenuation correction, demonstrates the appearance of relative uniform tracer uptake and myocardial perfusion appearing within normal limits. There is end systolic thickening and brightening. The gated Cardiolite study demonstrates myocardial thickening and inward wall motion. The reported LVEF is 78%. Impression: 1. Technically adequate (percent predicted maximal heart rate greater than 85%) exercise tolerance test 2. Peak exercise ECG with no diagnostic ischemic changes 3. No significant cardiac dysrhythmias noted 4. Rest and stress SPECT Cardiolite nuclear imaging demonstrate relative uniform tracer uptake and myocardial perfusion appearing within normal limits. 5. The gated Cardiolite study reports an LVEF of 78%. This note was generated with [employer] software. It may contain incorrect words, spelling, and punctuation that were not noted in checking the note before signing.
== END | disposition home or self-care (01) ==
LOC: CVS 07:09
PROVIDERS: PCP Family Medicine; Referring Provider Internal Medicine Cardiovascular Disease; Visit Provider Internal Medicine Cardiovascular Disease
DX: I35.1 Nonrheumatic aortic (valve) insufficiency (principal); I25.10 Atherosclerotic heart disease of native coronary artery without angina pectoris; Z95.5 Presence of coronary angioplasty implant and graft
CPT/HCPCS: 78452; 93017; 93306; A9500; A4216

== ENCOUNTER 2025-01-09 06:07 | Day surgery (SDC) | payer MEDICARE, SELFPAY ==
[2023-01-01 08:46] VITALS: BMI 29.8
--- NOTE | 2025-01-05 15:04 | PAT.ANESEVAL ---
Pre-Assessment Diagnosis/Proposed Procedure Planned Operative Procedure(s): EGD/CSCOPE Anesthesia History Anesthesia History - fha underwriter: Anesthesia History - fha underwriter Hx Hospitalization No 01/05/25 13:04 Any Problems With Anesthesia Yes: CHILD HAD GRAND MAL 01/05/25 13:04 SEIZURE Cholinesterase deficiency No 01/05/25 13:04 You/Your Family Experience No 01/05/25 13:04 fever (hyperthermia) with Relationship Recent Exposure to Contagious No 12/17/20 08:35 Disease Does patient have nerve No 01/05/25 13:04 stimulator Patient instructed to have device shut off --Does patient have Pacemaker or ICD? When Was Last Pacemaker Check QUESTION #4 FULL TEXT: You/Your Family Experience fever (hyperthermia) with Anesthesia Last Oral Intake Last Oral intake: Last Oral Intake NPO since Meds taken in AM with sips of water? Meds patient instructed to take am of surgery PONV PONV - fha underwriter: PONV - fha underwriter Female Yes 01/05/25 13:04 HX of Motion Sickness No 01/05/25 13:04 HX of N/V After Surgery No 01/05/25 13:04 Non-Smoker Yes 01/05/25 13:04 Duration of Surgery greater No 01/05/25 13:04 than 60 minutes Number of Risk Factors 2 01/05/25 13:04 PONV Score Moderate Risk 01/05/25 13:04 Height & Weight Height & Weight: Anesthesia: Height & Weight Height 5 ft 1 in 12/26/24 14:34 Respiratory Assessment Respiratory Assessment - fha underwriter: Respiratory Tract Infection Hx - fha underwriter Hx Respiratory Tract Infection No 01/05/25 13:04 STOP Sleep Apnea STOP Sleep Apnea - fha underwriter: STOP Sleep Apnea - fha underwriter Hx Hypertension Yes: CONTROLLED WITH MED 01/05/25 13:04 Hx Sleep Apnea Yes 01/05/25 13:04 CPAP Yes 01/05/25 13:04 BIPAP No 01/05/25 13:04 Do you snore loudly (louder than talking or can be heard Do you often feel tired/ fatigued/ sleepy during daytime? Has anyone observed you stop breathing during sleep? STOP Results Positive 01/05/25 13:04 QUESTION #5 FULL TEXT : Do you snore loudly (louder than talking or can be heard through closed doors)? Tobacco Use History Tobacco Use History - fha underwriter: Tobacco Use History - fha underwriter Tobacco Use Non-smoker 12/12/20 11:14 Smoking Status Never smoker 01/05/25 13:04 Hx Tobacco Use No 01/05/25 13:04 Years Smoking Packs Smoked per Day Smoking Cessation Date was within the last 15 years Hx Smoking Cessation Date Hx Smoking Cessation Counseling Hematologic Medial History Hematologic Hx - fha underwriter: Hematologic Medical Hx - elevator technician Hx of Blood Transfusion No 01/05/25 13:04 Hx of Transfusion in last 3 No 01/05/25 13:04 Months Date of Last Transfusion (if within last 3 months) Ever experience any problems No 01/05/25 13:04 with transfusion(s)? Specify any problems Hx of Preganancy in last 3 No 01/05/25 13:04 Months Nurse Filling Out Transfusion DSCHRIBER 01/05/25 13:04 & Questions: Date: 01/05/25 01/05/25 13:04 Time: 13:06 01/05/25 13:04 Patient unable to answer at this time (ie. confused, unrespo /Reproduction History /Reproductive History - fha underwriter: /Reproductive Hx- fha underwriter Hx Now No 01/05/25 13:04 Gestational Age (in weeks): EDC: Hx Hx Para Hx Section SAB No 01/05/25 13:04 PFSH Medical History (Updated 01/05/25 @ 13:16 by Adriana Petty) Broken teeth Post-menopausal Depression Anemia High cholesterol Difficulty swallowing History of IBS Gastric reflux CPAP (continuous positive airway pressure) dependence Shortness of breath on exertion History of echocardiogram History of stress test Cardiology follow-up encounter GI bleeding Ej blood in stool Rectal bleeding Dyslipidemia Coronary artery disease Atherosclerosis of coronary artery of [place] heart without angina pectoris Abnormal stress test HTN (hypertension) Abnormal ECG Dyspnea on exertion Multinodular goiter Cervicalgia Esotropia of left eye ICP (infantile cerebral palsy) GERD (gastroesophageal reflux disease) Wears glasses Anxiety Alcohol use Marijuana use Yolanda's disease Seizures Non-smoker Leg cramps Home Medications ?Medication ?Instructions ?Recorded ?Last Taken ?Type omeprazole 20 mg tablet,delayed 20 mg PO DAILY PRN Acid Reflux 06/23/22 Unknown History release levothyroxine 88 mcg tablet 75 mcg PO DAILY 11/04/22 Unknown History biotin 10,000 mcg capsule 10,000 mcg PO DAILY 05/18/23 Unknown History rosuvastatin 10 mg tablet 10 mg PO DAILY 05/18/23 Unknown History valsartan 320 1 tab PO DAILY #30 tabs 04/03/24 Unknown Rx mg-hydrochlorothiazide 25 mg tablet isosorbide mononitrate 30 mg 30 mg PO DAILY #90 tabs 05/29/24 Unknown Rx tablet,extended release 24 hr folic acid 1 mg tablet 1 mg PO QDAY 06/06/24 Unknown History aspirin 81 mg tablet,delayed 81 mg PO DAILY heart health #90 06/22/24 Unknown Rx release (Adult Aspirin Regimen) tabs clopidogrel 75 mg tablet (Plavix) 75 mg PO QDAY #90 tabs 09/26/24 01/04/25 Rx Allergy/AdvReac Type Severity Reaction Status Date / Time Seasonal Allergies: Uncoded Allergy Intermediate Other Verified 01/05/25 13:02 doxycycline AdvReac Intermediate Nausea Verified 01/05/25 13:02 Family History Mother Breast cancer Father Heart disease Sister Cancer lung Daughter Yolanda's disease Surgical History (Updated 01/05/25 @ 13:16 by Adriana Petty) History of cardiac catheterization Hx of colonoscopy Hx of thyroidectomy (~04/16/23) History of coronary artery stent placement (~10/07/22) Hx of tubal ligation Hx of eye surgery Social History Smoking Status: Never smoker second hand exposure: Yes alcohol intake: current alcohol intake frequency: a few times a month substance use type: marijuana and other details: edibles caffeine: No Audit: Pertinent Findings Pertinent Findings EKG Perinent findings: October 08, 2022. Normal sinus rhythm. T wave abnormality?consider anterior ischemia. (See follow-up stress and echo below). Stress test pertinent findings: December 28, 2024. Ejection fraction 78%. Rest and stress SPECT Cardiolite imaging demonstrate uniform tracer uptake and myocardial perfusion Echo (EF%) pertinent findings: 12/27/2024. Ejection fraction 70%. Normal PA pressure. No aortic stenosis noted. Heart catheterization pertinent findings: Cardiac cath October 07, 2022. 1. 75% mid LAD, 90% proximal D1. 2. Mid left circumflex is 75% occluded, distal left circumflex is 80% occluded. 3. Successful ELLIOT to the mid LAD. Successful ELLIOT to the distal left circumflex. Successful ELLIOT to the mid left circumflex. 4. Aspirin indefinitely. Plavix for the next 12 months. Consult pertinent findings: November 29, 2024. Dr. Rooney. 1. Coronary artery [id number] post stents to the mid LAD, mid and distal left circumflex. Continue aspirin and Plavix. Check exercise stress to rule out silent ischemia (see above) 2. Aortic valve [id number]-vzrrxw echo. (See above) 3. Hypertension?chronic-continue valsartan and Imdur. Recommendation Anesthesia Recommendation Anesthesia recommendation: OPTIMIZED for anesthesia
[2025-01-09] VITALS (9 sets, daily range): BP systolic 75–115; BP diastolic 39–68; PULSE 55–70; RESP 16–18; TEMP 36.2–36.4; O2SAT 93–97; BMI 30.3
--- NOTE | 2025-01-09 06:52 | PCM.HP.BLA ---
History and Physical Date of Admission: 01/09/25 Intake Vital Signs 11/29/2506:05 12/26/2513:34 Height 5 ft 1 in 5 ft 1 in Weight: 158 lb 161 lb 6 oz BMI 29.8 30.4 BP 129/72 H 147/79 H Blood Pressure Location Lt brachial Lt brachial Position Sitting Sitting Respiration 16 18 Pulse 56 L 67 Pulse Source NIBP Monitor Temp 98.0 F Temp Source Temporal Pulse Oximetry (%) 99 Oxygen Delivery Method room air Intake Visit Reasons: RECTAL BLEEDING Chief Complaint: rectal bleeding Is patient in pain?: No Allergies Seasonal Allergies: Uncoded Allergy (Intermediate, Verified 12/26/24 14:36) Otherdoxycycline Adverse Reaction (Intermediate, Verified 12/26/24 14:36) Nausea Medications ?Medication ?Instructions ?Recorded ?Confirmed ?Type omeprazole 20 mg tablet,delayed 20 mg PO DAILY PRN Acid Reflux 06/23/22 12/26/24 History release levothyroxine 88 mcg tablet 88 mcg PO DAILY 11/04/22 12/26/24 History biotin 10,000 mcg capsule 10,000 mcg PO DAILY 05/18/23 12/26/24 History rosuvastatin 10 mg tablet 10 mg PO DAILY 05/18/23 12/26/24 History valsartan 320 1 tab PO DAILY #30 tabs 04/03/24 12/26/24 Rx mg-hydrochlorothiazide 25 mg tablet isosorbide mononitrate 30 mg 30 mg PO DAILY #90 tabs 05/29/24 12/26/24 Rx tablet,extended release 24 hr folic acid 1 mg tablet 1 mg PO QDAY 06/06/24 12/26/24 History aspirin 81 mg tablet,delayed 81 mg PO DAILY heart health #90 06/22/24 12/26/24 Rx release (Adult Aspirin Regimen) tabs clopidogrel 75 mg tablet (Plavix) 75 mg PO QDAY #90 tabs 09/26/24 12/26/24 Rx mecobalamin (vitamin B12) 2,500 mcg PO .QOD 11/29/24 12/26/24 History Have you fallen in the past year?: No PFSH Medical History (Updated 12/26/24 @ 14:37 by Shanta Queen) GI bleeding Ej blood in stool Rectal bleeding Dyslipidemia Coronary artery disease Atherosclerosis of coronary artery of [place] heart without angina pectoris Abnormal stress test HTN (hypertension) Abnormal ECG Dyspnea on exertion Multinodular goiter Cervicalgia Esotropia of left eye ICP (infantile cerebral palsy) GERD (gastroesophageal reflux disease) Wears glasses Anxiety Alcohol use Marijuana use Yolanda's disease Thyroid disease Low iron Seizures Non-smoker Leg cramps Surgical History Hx of thyroidectomy (~04/16/23) History of coronary artery stent placement (~10/07/22) Hx of tubal ligation Hx of eye surgery Family History Mother Breast cancerFather Heart diseaseSister Cancer lungDaughter Yolanda's disease Social History Smoking Status: Never smoker second hand exposure: Yes alcohol intake: current alcohol intake frequency: a few times a month substance use type: marijuana and other details: edibles caffeine: No HPI HPI HPI: Patient is a 69-year-old female who reports that she has seen over the last month blood in the toilet paper a couple times. She is also anemic. She does note some dark stools. She is not having any abdominal pain. Her last colonoscopy was in 2020 and she did not have an EGD at that time. ROS General General: Yes fatigue; No weight change, appetite, colon cancer, breast cancer or weakness HEENT HEENT: No difficulty swallowing, eye injury, eye surgery, swollen glands or hoarseness Endo Endocrine: Yes thyroid disease; No diabetes mellitus, thyroid cancer, Hair loss, heat intolerance or cold intolerance Skin Skin: No rash or changing moles Musc Musculoskeletal: No back problems, arthritis, rheumatoid arthritis, gout or joint pain Cardio Cardiovascular: Yes murmur, heart disease, high blood pressure and heart stent; No pacemaker, atrial fibrillation, heart attack, palpitations, shortness of breath with exertion or chest pain Psych Psychiatric: Yes anxiety; No depression or hearing voices Resp Respiratory: Yes shortness of breath, Yes sleep apnea, No cough, No COPD, No asthma, No emphysema and No wheezing Gastro Gastrointestinal: No abdominal pain, No nausea or vomiting, Yes diarrhea, Yes constipation, Yes blood in stool, Yes acid reflux, No hemorrhoids, No ulcers, No gallbladder problem and No black,tarry stools [place] Hematologic: Yes blood thinners, No blood disorders, No bleeding, No anemia and No blood clots Neuro Neurologic: No numbness, No tingling and No weakness Exam Const General: cooperative Orientation: alert and oriented x3 HENMT Head: normal to inspection Neck Neck: normal visual inspection and full ROM Chest Chest palpation & inspection: normal inspection of the chest Resp Effort & Inspection: normal respiratory effort Auscultation: clear to auscultation bilaterally Cardio Rate: regular rate Rhythm: regular rhythm GI Inspection: non-distended Palpation: soft and nontender Skin General: no rashes or lesions noted Neuro General: patient alert and patient oriented x3 Extrem General: full ROM Psych Appearance: grossly normal Mental Status: mental status grossly normal Assessment and Plan Assessment and Plan (1) GI bleeding: Status: Acute Plan: Patient has anemia and she has been seeing blood mixed with her stool over the past month. I discussed performing EGD and colonoscopy to evaluate. I explained endoscopy in detail to the patient. I explained the risks including but not limited to stroke or heart attack with anesthesia, perforation of the GI tract, bleeding, infection. I explained that any of these could necessitate further emergency surgery. The patient understands and all questions were answered sufficiently. The patient wishes to proceed with procedure. Frank Barber MD Pager: [facility] [address] [place] [address], [address] [place] [address] Office: I have examined the patient and the H&P has been reviewed. There are no clinical changes since date of exam.
[2025-01-09] MEDS: Lactated Ringers 1,000 ML 15 ML IV (06:53)
--- NOTE | 2025-01-09 07:27 | PCM.PRE.AN2 ---
ASA Classification* ASA Classification ASA Classification: 3 (CAD, aortic regurg.) Assessment & Plan Anesthesia* Anesthesia Assessment Anesthesia Assessment: Discussed sedation and/or anesthesia options, risks, benefits, and alternatives with patient/parents/legal guardian/POA. Questions invited. The patient/parents/legal guardian/POA seems to understand and agrees to proceed with anesthesia plan. Reviewed the physical assessment, medical history, allergy history and patient home medications list prior to surgery/procedure/anesthetic and documented any changes. Performed airway and anesthesia risk assessments. Anesthesia Type Anesthesia Type: MAC History Source History Obtained from:: Patient and Chart Anesthesia Focused Assessment* Temperature: 97.6 F Pulse Rate: 70 Blood Pressure: 112/66 Respiratory Rate: 16 Pulse Ox: 97 Airway Assessment Mouth opens: >3 cm Mallampati Score: II Focused Labs Anesthesia Preop lab: CBC WBC 5.7 K/mm3 (4.4-11.0) 12/08/24 07:52 12/08/24 RBC 3.60 M/mm3 (4.2-5.4) L 12/08/24 07:52 12/08/24 Hgb 10.5 g/dL (12.0-15.0) L 12/08/24 07:52 12/08/24 Hct 32.4 % (37-47) L 12/08/24 07:52 12/08/24 Plt Count 268 K/mm3 (150-450) 12/08/24 07:52 12/08/24 CHEMISTRY Potassium 4.1 mmol/L (3.3-5.1) 12/08/24 07:52 12/08/24 Sodium 135 mmol/L (133-145) 12/08/24 07:52 12/08/24 Magnesium 2.0 mg/dL (1.6-2.6) 08/12/23 08:53 08/12/23 Phosphorus 3.7 mg/dL (2.5-4.9) 04/13/24 09:12 04/13/24 BUN 23 mg/dL (4-19) H 12/08/24 07:52 12/08/24 Creatinine 1.00 mg/dL (0.70-1.20) 12/08/24 07:52 12/08/24 Glucose 96 mg/dL (70-99) 12/08/24 07:52 12/08/24 TSH 1.370 uIU/mL (0.300-4.200) 12/08/24 07:52 12/08/24 COAG PT 13.5 SECONDS (11.7-14.9) 10/01/22 10:04 10/01/22 Pre-Assessment Diagnosis/Proposed Procedure Planned Operative Procedure(s): EGD/CSCOPE Anesthesia History Anesthesia History - senior quality methods specialist: Anesthesia History - senior quality methods specialist Hx Hospitalization No 01/05/25 13:04 Any Problems With Anesthesia Yes: CHILD HAD GRAND MAL 01/05/25 13:04 SEIZURE Cholinesterase deficiency No 01/05/25 13:04 You/Your Family Experience No 01/05/25 13:04 fever (hyperthermia) with Relationship Recent Exposure to Contagious No 01/09/25 06:48 Disease Does patient have nerve No 01/05/25 13:04 stimulator Patient instructed to have device shut off --Does patient have Pacemaker No 01/09/25 06:48 or ICD? When Was Last Pacemaker Check QUESTION #4 FULL TEXT: You/Your Family Experience fever (hyperthermia) with Anesthesia Last Oral Intake Last Oral intake: Last Oral Intake NPO since 21:00 01/09/25 06:48 Meds taken in AM with sips of Yes 01/09/25 06:48 water? Meds patient instructed to levothyroxine, omeprazole, 01/09/25 06:48 take am of surgery isosorbide PONV PONV - senior quality methods specialist: PONV - senior quality methods specialist Female Yes 01/05/25 13:04 HX of Motion Sickness No 01/05/25 13:04 HX of N/V After Surgery No 01/05/25 13:04 Non-Smoker Yes 01/05/25 13:04 Duration of Surgery greater No 01/05/25 13:04 than 60 minutes Number of Risk Factors 2 01/05/25 13:04 PONV Score Moderate Risk 01/05/25 13:04 Height & Weight Height & Weight: Anesthesia: Height & Weight Height 5 ft 1 in 01/09/25 06:48 Weight: 72.9 kg 01/09/25 06:48 Body Mass Index (BMI) 30.3 01/09/25 06:48 Respiratory Assessment Respiratory Assessment - senior quality methods specialist: Respiratory Tract Infection Hx - senior quality methods specialist Hx Respiratory Tract Infection No 01/05/25 13:04 STOP Sleep Apnea STOP Sleep Apnea - senior quality methods specialist: STOP Sleep Apnea - senior quality methods specialist Hx Hypertension Yes: CONTROLLED WITH MED 01/05/25 13:04 Hx Sleep Apnea Yes 01/05/25 13:04 CPAP Yes 01/05/25 13:04 BIPAP No 01/05/25 13:04 Do you snore loudly (louder than talking or can be heard Do you often feel tired/ fatigued/ sleepy during daytime? Has anyone observed you stop breathing during sleep? STOP Results Positive 01/05/25 13:04 QUESTION #5 FULL TEXT : Do you snore loudly (louder than talking or can be heard through closed doors)? Tobacco Use History Tobacco Use History - senior quality methods specialist: Tobacco Use History - senior quality methods specialist Tobacco Use Non-smoker 12/12/20 11:14 Smoking Status Never smoker 01/05/25 13:04 Hx Tobacco Use No 01/05/25 13:04 Years Smoking Packs Smoked per Day Smoking Cessation Date was within the last 15 years Hx Smoking Cessation Date Hx Smoking Cessation Counseling Hematologic Medial History Hematologic Hx - senior quality methods specialist: Hematologic Medical Hx - observer helper Hx of Blood Transfusion No 01/05/25 13:04 Hx of Transfusion in last 3 No 01/05/25 13:04 Months Date of Last Transfusion (if within last 3 months) Ever experience any problems No 01/05/25 13:04 with transfusion(s)? Specify any problems Hx of Preganancy in last 3 No 01/05/25 13:04 Months Nurse Filling Out Transfusion DSCHRIBER 01/05/25 13:04 & Questions: Date: 01/05/25 01/05/25 13:04 Time: 13:06 01/05/25 13:04 Patient unable to answer at this time (ie. confused, unrespo /Reproduction History /Reproductive History - senior quality methods specialist: /Reproductive Hx- senior quality methods specialist Hx Now No 01/05/25 13:04 Gestational Age (in weeks): EDC: Hx Hx Para Hx Section SAB No 01/05/25 13:04 Active Medications Active Medications: Current Medications Generic Name Dose Route Start Last Admin Trade Name Freq PRN Reason Stop Dose Admin Lactated Ringer's 1,000 mls @ 15 mls/hr 01/09/25 06:30 01/09/25 06:53 IV 15 mls/hr .Q48H NEO Administration PFSH Medical History Broken teeth Post-menopausal Depression Anemia High cholesterol Difficulty swallowing History of IBS Gastric reflux CPAP (continuous positive airway pressure) dependence Shortness of breath on exertion History of echocardiogram History of stress test Cardiology follow-up encounter GI bleeding Ej blood in stool Rectal bleeding Dyslipidemia Coronary artery disease Atherosclerosis of coronary artery of [place] heart without angina pectoris Abnormal stress test HTN (hypertension) Abnormal ECG Dyspnea on exertion Multinodular goiter Cervicalgia Esotropia of left eye ICP (infantile cerebral palsy) GERD (gastroesophageal reflux disease) Wears glasses Anxiety Alcohol use Marijuana use Yolanda's disease Seizures Non-smoker Leg cramps Home Medications ?Medication ?Instructions ?Recorded ?Last Taken ?Type omeprazole 20 mg tablet,delayed 20 mg PO DAILY PRN Acid Reflux 06/23/22 01/09/25 History release levothyroxine 88 mcg tablet 75 mcg PO DAILY 11/04/22 01/09/25 History biotin 10,000 mcg capsule 10,000 mcg PO DAILY 05/18/23 01/08/25 History rosuvastatin 10 mg tablet 10 mg PO DAILY 05/18/23 01/08/25 History valsartan 320 1 tab PO DAILY #30 tabs 04/03/24 01/08/25 Rx mg-hydrochlorothiazide 25 mg tablet isosorbide mononitrate 30 mg 30 mg PO DAILY #90 tabs 05/29/24 01/09/25 Rx tablet,extended release 24 hr folic acid 1 mg tablet 1 mg PO QDAY 06/06/24 01/08/25 History aspirin 81 mg tablet,delayed 81 mg PO DAILY heart health #90 06/22/24 01/08/25 Rx release (Adult Aspirin Regimen) tabs clopidogrel 75 mg tablet (Plavix) 75 mg PO QDAY #90 tabs 09/26/24 01/04/25 Rx cholecalciferol (vitamin D3) 25 2,000 unit PO DAILY 01/09/25 Unknown History mcg (1,000 unit) capsule (Vitamin D3) Allergy/AdvReac Type Severity Reaction Status Date / Time Seasonal Allergies: Uncoded Allergy Intermediate Other Verified 01/09/25 06:44 doxycycline AdvReac Intermediate Nausea Verified 01/09/25 06:44 Family History Mother Breast cancer Father Heart disease Sister Cancer lung Daughter Yolanda's disease Surgical History History of cardiac catheterization Hx of colonoscopy Hx of thyroidectomy (~04/16/23) History of coronary artery stent placement (~10/07/22) Hx of tubal ligation Hx of eye surgery Social History Smoking Status: Never smoker second hand exposure: Yes alcohol intake: current alcohol intake frequency: a few times a month substance use type: marijuana and other details: edibles caffeine: No Review of Systems (Anesthesia) ROS Narrative System reviewed and no additional complaints, except as documented.
--- NOTE | 2025-01-09 07:55 | OP.EGD_ITS ---
Patient Name: Kera Traylor Procedure Date: 01/09/2025 7:27 AM Date of : 1955 Age: 69 Procedure: Upper GI endoscopy Indications: Iron deficiency anemia Providers: Frank Barber MD Referring MD: Jr Reyes Medicines: Propofol per Anesthesia Patient Profile: This is a 69 year old female. Refer to note in patient chart for documentation of history and physical. Complications: No immediate complications. Procedure: Pre-Anesthesia Assessment: - Prior to the procedure, a History and Physical was performed, and patient medications and allergies were reviewed. The patient's tolerance of previous anesthesia was also reviewed. The risks and benefits of the procedure and the sedation options and risks were discussed with the patient. All questions were answered, and informed consent was obtained. Prior Anticoagulants: The patient has taken no anticoagulant or antiplatelet agents. After reviewing the risks and benefits, the patient was deemed in satisfactory condition to undergo the procedure. After obtaining informed consent, the endoscope was passed under direct vision. Throughout the procedure, the patient's blood pressure, pulse, and oxygen saturations were monitored continuously. The colonoscope was introduced through the mouth, and advanced to the third part of duodenum. The upper GI endoscopy was accomplished without difficulty. The patient tolerated the procedure well. Scope In: 7:36:52 AM Scope Out: 7:40:13 AM Total Procedure Duration Time 0 hours 3 minutes 21 seconds Findings: The esophagus was normal. The stomach was normal. The examined duodenum was normal. Impression: - Normal esophagus. - Normal stomach. - Normal examined duodenum. - No specimens collected. Recommendation: - Discharge patient to home. - Resume previous diet. - Continue present medications. Procedure Code(s): --- Professional --- 94210, Esophagogastroduodenoscopy, flexible, transoral; diagnostic, including collection of specimen(s) by brushing or washing, when performed (separate procedure) Diagnosis Code(s): --- Professional --- D50.9, Iron deficiency anemia, unspecified CPT copyright 2021 [employer]. All rights reserved. The codes documented in this report are preliminary and upon buyer grain review may be revised to meet current compliance requirements. Frank Barber MD 01/09/2025 7:55:14 AM This report has been signed electronically. Number of Addenda: 0 Note Initiated On: 01/09/2025 7:27 AM
--- NOTE | 2025-01-09 07:55 | OP.CCLET_ITS ---
01/09/2025 Jr Reyes [address] [place] [address] Re : Upper GI endoscopy procedure for Kera Traylor Dear Dr. Reyes This procedure was performed on Thursday, January 09, 2025. My impressions and recommendations are as follows: Impressions : - Normal esophagus. - Normal stomach. - Normal examined duodenum. - No specimens collected. Recommendations : - Discharge patient to home. - Resume previous diet. - Continue present medications. My findings are described in the full procedure note, which is enclosed. If I can be of further assistance, please feel free to contact me at Doctor phone number(s): , Work: . Sincerely, Frank Barber MD 01/09/2025 7:55:14 AM This report has been signed electronically.
--- NOTE | 2025-01-09 07:56 | OP.COLON_ITS ---
Patient Name: Kera Traylor Procedure Date: 01/09/2025 7:40 AM Date of : 1955 Age: 69 Procedure: Colonoscopy Indications: Rectal bleeding Providers: Frank Barber MD Referring MD: Jr Reyes Medicines: Monitored Anesthesia Care, Propofol per Anesthesia Patient Profile: This is a 69 year old female. Refer to note in patient chart for documentation of history and physical. Last Colonoscopy: 5 years ago. Complications: No immediate complications. Procedure: Pre-Anesthesia Assessment: - Prior to the procedure, a History and Physical was performed, and patient medications and allergies were reviewed. The patient's tolerance of previous anesthesia was also reviewed. The risks and benefits of the procedure and the sedation options and risks were discussed with the patient. All questions were answered, and informed consent was obtained. Prior Anticoagulants: The patient has taken no anticoagulant or antiplatelet agents. After reviewing the risks and benefits, the patient was deemed in satisfactory condition to undergo the procedure. - Prior to the procedure, a History and Physical was performed, and patient medications and allergies were reviewed. The patient's tolerance of previous anesthesia was also reviewed. The risks and benefits of the procedure and the sedation options and risks were discussed with the patient. All questions were answered, and informed consent was obtained. Prior Anticoagulants: The patient has taken no anticoagulant or antiplatelet agents. After reviewing the risks and benefits, the patient was deemed in satisfactory condition to undergo the procedure. After I obtained informed consent, the scope was passed under direct vision. Throughout the procedure, the patient's blood pressure, pulse, and oxygen saturations were monitored continuously. The colonoscope was introduced through the anus and advanced to the cecum, identified by appendiceal orifice and ileocecal valve. The colonoscopy was performed without difficulty. The patient tolerated the procedure well. The quality of the bowel preparation was good. The ileocecal valve, appendiceal orifice, and rectum were photographed. Scope In: 7:41:40 AM Scope Withdrawal Time 0 hours 6 minutes 29 seconds Scope Out: 7:53:13 AM Total Procedure Duration Time 0 hours 11 minutes 33 seconds Findings: The entire examined colon appeared normal on direct and retroflexion views. Impression: - The entire examined colon is normal on direct and retroflexion views. - No specimens collected. Recommendation: - Discharge patient to home. - Resume previous diet. - Continue present medications. - Repeat colonoscopy is not recommended due to current age (66 years or older) for screening purposes. Procedure Code(s): --- Professional --- 27875, Colonoscopy, flexible; diagnostic, including collection of specimen(s) by brushing or washing, when performed (separate procedure) Diagnosis Code(s): --- Professional --- K62.5, Hemorrhage of anus and rectum CPT copyright 2021 [employer]. All rights reserved. The codes documented in this report are preliminary and upon vulcanized fiber unit operator review may be revised to meet current compliance requirements. Frank Barber MD 01/09/2025 7:56:31 AM This report has been signed electronically. Number of Addenda: 0 Note Initiated On: 01/09/2025 7:40 AM
--- NOTE | 2025-01-09 07:57 | OP.CCLET_ITS ---
01/09/2025 Jr Reyes [address] [place] [address] Re : Colonoscopy procedure for Kera Traylor Dear Dr. Reyes This procedure was performed on Thursday, January 09, 2025. My impressions and recommendations are as follows: Impressions : - The entire examined colon is normal on direct and retroflexion views. - No specimens collected. Recommendations : - Discharge patient to home. - Resume previous diet. - Continue present medications. - Repeat colonoscopy is not recommended due to current age (66 years or older) for screening purposes. My findings are described in the full procedure note, which is enclosed. If I can be of further assistance, please feel free to contact me at Doctor phone number(s): , Work: . Sincerely, Frank Barber MD 01/09/2025 7:56:31 AM This report has been signed electronically.
--- NOTE | 2025-01-09 08:02 | PCM.POST.ANE ---
Anesthesia: Postop Eval I Current Vital Signs Temperature: 97.5 F Pulse Rate: 57 Blood Pressure: 85/39 Respiratory Rate: 16 Pulse Ox: 97 Oxygen Delivery Method: Room Air Assessment Airway patent: Yes Spontaneous unlabored respirations: Yes Mental status: Asleep nausea: No Vomiting: No Anesthesia Complication: No Fluid Hydration Crystalloid volume administer (ml): 400 Total IV fluid infused: 400 Progress Note Anesthesia document: Postop Eval 1 completed: Yes
--- NOTE | 2025-01-09 13:08 | PCM.POSTANE2 ---
Anesthesia Postop Eval I Sum Postop Eval Completion status Anesthesia document: Postop Eval 1 completed: Yes Anesthesia Postop Eval I Summary Anesthesia Postop Eval I Summary: Anesthesia Postop Eval I: Assessment Summary Airway patent Yes 01/09/25 08:03 [email or web address] Spontaneous unlabored Yes 01/09/25 08:03 [email or web address] respirations Mental status Asleep 01/09/25 08:03 [email or web address] nausea No 01/09/25 08:03 [email or web address] Vomiting No 01/09/25 08:03 [email or web address] Anesthesia Postop Eval I: Fluid Summary Crystalloid volume administer 400 01/09/25 08:03 [email or web address] (ml) Colloids volume administered ( ml) Blood Product volume administered (ml) Total IV fluid infused 400 01/09/25 08:03 [email or web address] Anesthesia Postop Eval I: Summary Notes Anesthesia Complication No 01/09/25 08:03 [email or web address] Anesthesia Complication Comment: Post-operative progress note Anesthesia: Postop Eval II Evaluation Mental status: Awake and Calm Pain Level: 0 nausea: No Vomiting: No Complications Anesthesia Complication: No
== END 2025-01-09 08:39 | disposition home or self-care (01) ==
LOC: EN 06:08 → AC 06:09
PROVIDERS: PCP Family Medicine; Referring Provider Family Medicine; Visit Provider Surgery
PROC: 0DJD8ZZ Inspection of Lower Intestinal Tract, Via Natural or Artificial Opening Endoscopic (ICD-10-PCS; CPT 45378; principal; 2025-01-09 07:25)
DX: K92.2 Gastrointestinal hemorrhage, unspecified (principal); I10 Essential (primary) hypertension; I25.10 Atherosclerotic heart disease of native coronary artery without angina pectoris; D50.9 Iron deficiency anemia, unspecified; Z79.899 Other long term (current) drug therapy; Z79.890 Hormone replacement therapy; Z79.02 Long term (current) use of antithrombotics/antiplatelets; K21.9 Gastro-esophageal reflux disease without esophagitis; E78.00 Pure hypercholesterolemia, unspecified; E06.3 Autoimmune thyroiditis; Z79.82 Long term (current) use of aspirin
CPT/HCPCS: 43235; 45378; J2405

== ENCOUNTER → 2025-03-20 | Outpatient (CLI) | payer MEDICARE, SELFPAY ==
[2023-01-01 08:46] VITALS: BMI 29.8
[2025-03-20 09:55] LABS: Hematocrit 29.5 % (37-47); Hemoglobin 9.6 g/dL (12.0-15.0); Immature Granulocytes Count 0.030 X10^3/uL (0.0-0.0); Mean Corp Hgb Conc 32.5 g/dL (32-36); Mean Corpuscular Volume 92.2 fL (81-99); Mean Platelet Vol. 11.0 fl (6.2-12.0); NRBC Flagged by Analyzer 0 % (0-5); Platelet Count 255 K/mm3 (150-450); RBC Distribution Width CV 12.7 % (11.6-14.6); RBC Distribution Width SD 42.8 fl (35.1-43.9); Red Blood Count 3.20 M/mm3 (4.2-5.4); White Blood Count 5.9 K/mm3 (4.4-11.0)
[2025-03-20 12:46] LABS: AST(SGOT) 20 U/L (<=31); Alanine Aminotransfer ALT/SGPT 15 U/L (<=34); Albumin, Serum 4.2 g/dL (3.4-4.8); Alkaline Phosphatase 58 U/L (35-104); Anion Gap 12 (5-15); BUN 23 mg/dL (4-19); BUN/Creat Ratio 22.7 RATIO (10-20); Calcium,Total 9.1 mg/dL (7.6-11.0); Carbon Dioxide 23.6 mmol/L (21.0-32.0); Chloride 102 mmol/L (98-108); Cholesterol 121 mg/dL (<=200); Globulin 2.7 g/dL (2.2-4.2); Glucose 97 mg/dL (70-99); Low Density Lipoprotein Calc. 57 mg/dL; Potassium 4.1 mmol/L (3.3-5.1); Triglycerides 81 mg/dL; Very Low Density Lipoprotein 16 mg/dL (5-40); Vitamin D,25 Hydroxy 40.0 ng/mL (30-100); cholesterol:hdl ratio screen 2.55
[2025-03-21 13:39] LABS: Ferritin 202 ng/mL (22-378)
[2025-03-21 15:16] LABS: Iron 55 ug/dL (50-170); Iron Binding Capacity,Total 296 ug/dL (250-450); Iron Binding Capacity,Unsat 241 ug/dL (228-428)
== END | disposition home or self-care (01) ==
LOC: MFPLAB 08:03
PROVIDERS: PCP Family Medicine; Referring Provider Family Medicine; Visit Provider Family Medicine
DX: D64.9 Anemia, unspecified (principal); I25.10 Atherosclerotic heart disease of native coronary artery without angina pectoris; E03.8 Other specified hypothyroidism; M85.80 Other specified disorders of bone density and structure, unspecified site
CPT/HCPCS: 36415; 80053; 80061; 82306; 82728; 83540; 83550; 84439; 84443; 85025

== ENCOUNTER → 2025-05-24 | Outpatient (CLI) | payer MEDICARE, SELFPAY ==
[2023-01-01 08:46] VITALS: BMI 29.8
--- NOTE | 2025-05-24 14:47 | BI_ITS ---
EXAM: SCRN MAMM (CAD)W/BEKA BILAT DATE: 05/24/2025 CLINICAL HISTORY: F, Age 69 y/o , SCREENING Mother with breast cancer. TECHNIQUE: Procedure Code: [id number] Modality: MG Procedure: SCRN MAMM (CAD)W/BEKA BILAT COMPARISON: Prior exam(s) dated April 13, 2024.. FINDINGS: TISSUE DENSITY: The breasts are heterogeneously dense, which may obscure small masses. Bilateral Breast Mammographic Findings: No significant masses, calcifications or other abnormalities are identified. Stable small benign-appearing axillary lymph nodes. No suspicious masses, areas of developing architectural distortion, or suspicious calcifications. There has been no significant interval change. BI/SCRN MAMM (CAD)W/BEKA BILAT IMPRESSION: Stable bilateral screening mammogram. OVERALL FINAL ASSESSMENT BI-RADS 2: BENIGN RECOMMENDATION: Routine annual follow-up in 1 Year A letter with findings and recommendations will be mailed to the patient. Reading Location: [facility]
== END | disposition home or self-care (01) ==
LOC: OPBI 14:46
PROVIDERS: PCP Family Medicine; Referring Provider Family Medicine; Visit Provider Family Medicine
DX: Z12.31 Encounter for screening mammogram for malignant neoplasm of breast (principal)
CPT/HCPCS: 77063; 77067

== ENCOUNTER → 2025-06-21 | Outpatient (CLI) | payer MEDICARE, SELFPAY ==
[2023-01-01 08:46] VITALS: BMI 29.8
[2025-06-21 08:57] LABS: Mucous, Urine 0 SEEN /hpf (<or=2+); Red Blood Cells-Urine 0 SEEN /hpf (0-5); Squamous Epithelial Cells - UA 0 SEEN /hpf (5-10)
[2025-06-21 10:08] LABS: Color, Urine Yellow (Yellow); Glucose, Dipstick Normal (Normal); Ketone-Dipstick Negative (Negative); Leukocyte Esterase-Dipstick Negative /ul (Negative); Nitrite-Dipstick Negative (Negative); Occult Blood-Urine Negative /ul (Negative); Protein-Dipstick 15 mg/dl (Negative); Specific Gravity, Urine 1.010 (1.002-1.030); Urine Bilirubin Dipstick Negative (Negative)
[2025-06-21 10:11] LABS: Hematocrit 31.8 % (37-47); Hemoglobin 10.8 g/dL (12.0-15.0); Immature Granulocytes Count 0.020 X10^3/uL (0.0-0.0); Mean Corp Hgb Conc 34.0 g/dL (32-36); Mean Corpuscular Volume 89.3 fL (81-99); Mean Platelet Vol. 11.3 fl (6.2-12.0); NRBC Flagged by Analyzer 0 % (0-5); Platelet Count 269 K/mm3 (150-450); RBC Distribution Width CV 12.7 % (11.6-14.6); RBC Distribution Width SD 41.8 fl (35.1-43.9); Red Blood Count 3.56 M/mm3 (4.2-5.4); White Blood Count 5.2 K/mm3 (4.4-11.0)
[2025-06-21 10:23] LABS: Creatinine, Urine (random) 47.90 mg/dL (28.00-217.00); Protein, Urine (Random) < 6.0 mg/dL (0.0-12.0); Protein:Creat Ratio UNABLE TO CALCULATE mg/g CRE (0-200)
[2025-06-21 10:34] LABS: PTHIN 40 pg/mL (11-61)
[2025-06-21 11:02] LABS: Iron Binding Capacity,Total 319 ug/dL (250-450)
[2025-06-21 11:33] LABS: FOLATES,SERUM (FOLIC ACID) > 40.00 ng/mL (4.60-34.80)
[2025-06-21 11:37] LABS: AST(SGOT) 28 U/L (<=31); Alanine Aminotransfer ALT/SGPT 18 U/L (<=34); Albumin, Serum 4.4 g/dL (3.4-4.8); Alkaline Phosphatase 57 U/L (35-104); Anion Gap 13 (5-15); BUN 28 mg/dL (4-19); BUN/Creat Ratio 26.9 RATIO (10-20); Calcium,Total 9.2 mg/dL (7.6-11.0); Carbon Dioxide 21.9 mmol/L (21.0-32.0); Chloride 100 mmol/L (98-108); Cholesterol 131 mg/dL (<=200); Globulin 2.8 g/dL (2.2-4.2); Glucose 104 mg/dL (70-99); Iron 62 ug/dL (50-170); Iron Binding Capacity,Unsat 257 ug/dL (228-428); Low Density Lipoprotein Calc. 57 mg/dL; Potassium 4.0 mmol/L (3.3-5.1); Triglycerides 113 mg/dL; Very Low Density Lipoprotein 23 mg/dL (5-40); cholesterol:hdl ratio screen 2.52
[2025-06-21 11:55] LABS: Ferritin 157 ng/mL (22-378); Vitamin B12 > 4000 pg/mL (180-914); Vitamin D,25 Hydroxy 42.2 ng/mL (30-100)
== END | disposition home or self-care (01) ==
LOC: MFPLAB 08:44
PROVIDERS: PCP Family Medicine; Visit Provider Family Medicine
DX: N18.30 Chronic kidney disease, stage 3 unspecified (principal); E55.9 Vitamin D deficiency, unspecified; D64.9 Anemia, unspecified; E03.8 Other specified hypothyroidism; I25.10 Atherosclerotic heart disease of native coronary artery without angina pectoris
CPT/HCPCS: 36415; 80053; 80061; 81001; 82306; 82570; 82607; 82728; 82746; 83540; 83550; 83970; 84100; 84156; 84439; 84443; 85025